=== PATIENT | female | born 1970 | race Caucasian/White ===

== ENCOUNTER → 2016-12-05 | Outpatient (CLI) | payer OTHER ==
[~2016-12-05] MED LIST: AMLODIPINE BESY1 TAB PO; AMLODIPINE5 MG PO; AMOXICILLIN500 M1 PO; AMOXICILLIN500 M2 PO; AMOXICILLIN500 MG PO; ANAPROX DS550 MG PO; ASMANEX220 MCG INH; ASPIR LOW81 MG PO; ASPIRIN ADULT L81 M2 PO; ASPIRIN325 MG PO; ASPIRIN81 M1; ASPIRIN81 MG PO; CARVEDILOL25 MG PO; CEPHALEXIN500 M1 PO; CIPRODEX 0.3%-7.5 ML OT; CIPROFLOXACIN500 MG PO; CLARITIN10 MG PO; CLEOCIN HCL150 MG PO; CLINDAMYCIN HC300 MG PO; CORDROL20 MG PO; COREG25 MG PO; COUMADIN2.5 MG PO; COUMADIN3 M1 PO; DIABETA5 MG PO; DOXYCYCLINE100 M3 PO; FERROUS SULFAT; FERROUS SULFAT324 M1 PO; FLOVENT 110 M110 MCG INH; FUROSEMIDE40 MG PO; GLYBURIDE5 MG; HUMALOG100 U/ML SC; HYDROCODONE BIT1 T11 PO; ISORDIL PO; ISORDIL10 M1 PO; ISORDIL10 MG SL; ISOSORBIDE DINI20 MG; JANTOVEN2.5 MG PO; K-DUR 20MEQ20 MEQ PO; LANTUS100 U/ML SC; LASIX40 MG PO; LEVAQUIN500 M2 PO; LEVAQUIN750 M1 PO; LIDOCAINE VISC100 M2 MM; LIPITOR40 MG PO; LISINOPRIL HCTZ1 TA1 PO; LISINOPRIL10 MG; LISINOPRIL10 MG PO; LISINOPRIL20 MG PO; LISINOPRIL5 MG PO; LOPRESSOR25 MG PO; MEDROL DOSEPAK4 MG PO; METFORMIN1000 MG PO; METFORMIN500 MG PO; METOPROLOL25 MG PO; MICRONASE5 MG PO; MOBIC15 MG PO; Metformin Hydr500 MG PO; NEURONTIN300 MG PO; NORCO 325 MG-51 TAB PO; NORVASC2.5 MG PO; NOVOLOG 70/30 M10 ML SC; NOVOLOG MIX 70/33 ML SC; NOVOLOG1 UNIT/0.0 SC; NOVOLOG100 U/ML SC; OMEPRAZOLE DR20 MG PO; OXYGEN NAS; PAXIL20 MG PO; PEN-VEE K500 MG PO; PERCOCET 325 MG1 TA7 PO; POTASSIUM20 MEQ; PREDNICOT20 MG PO; PREDNISONE10 MG PO; PREVACID30 M1 PO; PRILOSEC10 MG PO; PRILOSEC20 MG PO; PRILOSEC40 M1 PO; PYRIDIUM200 MG PO; REQUIP0.5 MG PO; REQUIP5 MG PO; ROBITUSSIN DM 105 ML PO; SIMVASTATIN80 MG PO; TESSALON PERLE100 M1 PO; TRAMADOL HCL50 MG PO; TRAMADOL50 MG PO; TRIMOX500 MG PO; TYLENOL W/CODEI1 TA2 PO; ULTRAM50 MG PO; VENTOLIN 02.5 MG/3 M INH; VENTOLIN0.09 MG/AC IH; VIBRAMYCIN100 MG PO; VICODIN 5/500 505 MG PO; VIT D2; VITAMIN B COMPL; VITAMIN D50000 I3 PO; XANAX0.25 MG; XANAX0.5 MG PO; ZITHROMAX Z PA250 MG PO; ZITHROMAX250 MG PO; ZOCOR20 MG PO; ZYRTEC10 MG PO
== END ==
LOC: RESCLI 03:01
DX: E11.42 Type 2 diabetes mellitus with diabetic polyneuropathy (principal); I25.10 Atherosclerotic heart disease of native coronary artery without angina pectoris; I10 Essential (primary) hypertension; J44.9 Chronic obstructive pulmonary disease, unspecified; Z87.891 Personal history of nicotine dependence; Z88.6 Allergy status to analgesic agent

== ENCOUNTER → 2017-02-14 | Outpatient (CLI) | payer OTHER ==
[2017-02-14 15:22] LABS: BILIRUBIN NEGATIVE (NEGATIVE); BLOOD 2+ (NEGATIVE); CLARITY CLEAR (CLEAR); COLOR YELLOW (YELLOW); GLUCOSE 3+ (NEGATIVE); KETONE NEGATIVE (NEGATIVE); LEUKO ESTERASE NEGATIVE (NEGATIVE); NITRITE NEGATIVE (NEGATIVE); PROTEIN 2+ (NEGATIVE); UROBILINOGEN 0.2 E.U./dl (0.2-1.0)
[2017-02-14 15:24] LABS: BASO % 0.2 % (0.0-1.0); EOS # 0.3 10*3/uL (0.0-0.4); EOS % 3.7 % (1.0-4.0); HEMATOCRIT 34.7 % (37.0-47.0); IG # 0.1 10*3/uL (0.0-0.1); LYMPH # 1.6 10*3/uL (1.3-4.4); LYMPH % 17.1 % (27.0-41.0); MEAN CELL VOLUME 87.4 fl (81.0-99.0); MEAN CORPUSCULAR HGB 27.7 pg (27.0-31.0); MEAN CORPUSCULAR HGB CONC 31.7 g/dl (33.0-37.0); MEAN PLATELET VOLUME 10.4 fl (9.6-12.3); MONO # 0.5 10*3/uL (0.1-1.0); MONO % 5.1 % (3.0-9.0); NEUT # 6.8 10*3/uL (2.3-7.9); NEUT % 73.1 % (47.0-73.0); PLATELET COUNT AUTOMATED 200 10*3/uL (130-400); RED BLOOD COUNT 3.97 10*6/uL (4.10-5.10); RED CELL DISTRI WIDTH 15.1 % (0-14.5); WHITE BLOOD COUNT 9.3 10*3/uL (4.8-10.8)
[2017-02-14 15:31] LABS: URINE TP/CRE RATIO 1.8 (<0.21)
[2017-02-14 15:42] LABS: HEMOGLOBIN A1c 10.4 % (4.8-5.6)
[2017-02-14 15:44] LABS: ALBUMIN 3.2 gm/dl (3.1-4.5); MAGNESIUM 1.8 mg/dL (1.5-2.1); PHOSPHOROUS 4.1 mg/dL (2.5-4.9); POTASSIUM 5.6 mmol/L (3.5-5.1)
[2017-02-14 16:03] LABS: RBC 0-2 rbc/hpf (0-2)
[2017-02-14 16:10] LABS: VITAMIN D, 25-HYDROXY 25.4 ng/mL (30-100)
[2017-02-14 16:11] LABS: FERRITIN 45.8 ng/mL (10.0-291.0); PTH INTACT 89.5 pg/mL (14.0-72.0)
== END | disposition home or self-care (01) ==
LOC: LAB 14:58
PROVIDERS: Internal Medicine Nephrology
DX: E11.22 Type 2 diabetes mellitus with diabetic chronic kidney disease (principal); E11.65 Type 2 diabetes mellitus with hyperglycemia; N18.4 Chronic kidney disease, stage 4 (severe); N25.81 Secondary hyperparathyroidism of renal origin; D63.1 Anemia in chronic kidney disease

== ENCOUNTER → 2017-03-05 | Outpatient (CLI) | payer OTHER | END | disposition home or self-care (01) | LOC: RESCLI 02:01 | DX: I13.0 Hypertensive heart and chronic kidney disease with heart failure and stage 1 through stage 4 chronic kidney disease, or unspecified chronic kidney disease (principal); I50.22 Chronic systolic (congestive) heart failure; N18.9 Chronic kidney disease, unspecified; E11.65 Type 2 diabetes mellitus with hyperglycemia; E11.22 Type 2 diabetes mellitus with diabetic chronic kidney disease; E11.42 Type 2 diabetes mellitus with diabetic polyneuropathy; J44.9 Chronic obstructive pulmonary disease, unspecified; E78.5 Hyperlipidemia, unspecified; G25.81 Restless legs syndrome; K21.9 Gastro-esophageal reflux disease without esophagitis; J30.2 Other seasonal allergic rhinitis; I25.10 Atherosclerotic heart disease of native coronary artery without angina pectoris; Z79.4 Long term (current) use of insulin ==

== ENCOUNTER 2017-03-13 13:27 | Emergency (ER) | payer OTHER ==
[~2017-03-13] VITALS: Ht 154.9 cm; Wt 82.1 kg
[2017-03-13 13:35] VITALS: BP 141/68
[2017-03-13] MEDS ORDERED: HYDROCODONE BIT1 T11 PO (15:21)
[2017-03-13] MEDS ORDERED: MEDROL DOSEPAK4 MG PO (15:21)
== END 2017-03-13 15:24 | disposition home or self-care (01) ==
LOC: ED 13:27
DX: S46.911A Strain of unspecified muscle, fascia and tendon at shoulder and upper arm level, right arm, initial encounter (principal); S50.01XA Contusion of right elbow, initial encounter; Z87.891 Personal history of nicotine dependence; Z95.1 Presence of aortocoronary bypass graft; Z90.49 Acquired absence of other specified parts of digestive tract; Z79.82 Long term (current) use of aspirin; Z88.1 Allergy status to other antibiotic agents; Z88.2 Allergy status to sulfonamides; Z88.6 Allergy status to analgesic agent; W17.89XA Other fall from one level to another, initial encounter; Y93.89 Activity, other specified; Y92.9 Unspecified place or not applicable; Y99.9 Unspecified external cause status

== ENCOUNTER → 2017-03-23 | Outpatient (CLI) | payer OTHER ==
[2017-03-23 15:21] LABS: BILIRUBIN NEGATIVE (NEGATIVE); BLOOD 1+ (NEGATIVE); CLARITY CLEAR (CLEAR); COLOR YELLOW (YELLOW); GLUCOSE 1+ (NEGATIVE); KETONE NEGATIVE (NEGATIVE); LEUKO ESTERASE 1+ (NEGATIVE); NITRITE NEGATIVE (NEGATIVE); PH 5.5 (5.0-9.0); PROTEIN 1+ (NEGATIVE); SPECIFIC GRAVITY 1.015 (1.005-1.030); UROBILINOGEN 0.2 E.U./dl (0.2-1.0)
[2017-03-23 16:14] LABS: BACTERIA TRACE; EPITHELIAL CELLS 25-30; RBC 0-2 rbc/hpf (0-2); URINE REFLEX COMMENT YES (NO); WBC 21-30 wbc/hpf (0-5)
== END | disposition home or self-care (01) ==
LOC: LAB 14:42
PROVIDERS: Internal Medicine
DX: R30.0 Dysuria (principal)

== ENCOUNTER 2017-05-15 16:35 | Inpatient (IN) | payer OTHER ==
[2017-05-15] VITALS (12 sets, daily range): BP systolic 85–128; BP diastolic 36–66
[~2017-05-15] VITALS: Ht 154.9 cm; Wt 90.0 kg
[2017-05-15 16:57] LABS: BILIRUBIN NEGATIVE (NEGATIVE); BLOOD TRACE-INTACT (NEGATIVE); CLARITY SL CLOUDY (CLEAR); COLOR YELLOW (YELLOW); GLUCOSE NEGATIVE (NEGATIVE); KETONE NEGATIVE (NEGATIVE); LEUKO ESTERASE 2+ (NEGATIVE); NITRITE NEGATIVE (NEGATIVE); PH 5.5 (5.0-9.0); PROTEIN 1+ (NEGATIVE); SPECIFIC GRAVITY 1.015 (1.005-1.030); UROBILINOGEN 0.2 E.U./dl (0.2-1.0)
[2017-05-15 17:02] LABS: BACTERIA 4+; RBC 0-2 rbc/hpf (0-2); URINE REFLEX COMMENT YES (NO); WBC 16-20 wbc/hpf (0-5)
[2017-05-15 17:08] LABS: BUN 39 mg/dl (7-24); CARBON DIOXIDE 20 mmol/L (21-32); CHLORIDE 112 mmol/L (98-107); EST GLOM FILT AFRICAN AMERICAN 22 ml/min; POTASSIUM 4.2 mmol/L (3.5-5.1); SODIUM 142 mmol/L (136-145)
[2017-05-15 17:10] LABS: GLUCOSE 28 mg/dL (65-99); TROPONIN I < 0.015 ng/ml (<0.045)
[2017-05-15 18:18] LABS: BASO % 0.3 % (0.0-1.0); EOS # 0.7 10*3/uL (0.0-0.4); HEMATOCRIT 36.1 % (37.0-47.0); HEMOGLOBIN 11.5 g/dl (12.0-16.0); IG # 0.1 10*3/uL (0.0-0.1); LYMPH # 2.5 10*3/uL (1.3-4.4); MEAN CELL VOLUME 86.8 fl (81.0-99.0); MEAN CORPUSCULAR HGB 27.6 pg (27.0-31.0); MEAN CORPUSCULAR HGB CONC 31.9 g/dl (33.0-37.0); MEAN PLATELET VOLUME 11.2 fl (9.6-12.3); MONO # 0.7 10*3/uL (0.1-1.0); MONO % 4.8 % (3.0-9.0); NEUT # 10.5 10*3/uL (2.3-7.9); NEUT % 72.3 % (47.0-73.0); PLATELET COUNT AUTOMATED 292 10*3/uL (130-400); RED BLOOD COUNT 4.16 10*6/uL (4.10-5.10); RED CELL DISTRI WIDTH 14.6 % (0-14.5); WHITE BLOOD COUNT 14.5 10*3/uL (4.8-10.8)
[2017-05-15 21:25] LABS: POTASSIUM 4.4 mmol/L (3.5-5.1)
[2017-05-15 22:58] LABS: POTASSIUM 5.6 mmol/L (3.5-5.1)
[2017-05-16 01:00] VITALS: BP 109/53
[2017-05-16 03:29] LABS: URINE AMPHETAMINES < 1000 (1000ng/ml); URINE BARBITURATES < 200 (200ng/ml); URINE COCAINE < 300 (300ng/ml)
[2017-05-16 03:40] LABS: URINE OSMOLALITY 257 mOsm/kg (500-850)
[2017-05-16 06:15] LABS: BASO % 0.2 % (0.0-1.0); EOS # 0.3 10*3/uL (0.0-0.4); EOS % 2.7 % (1.0-4.0); HEMATOCRIT 34.8 % (37.0-47.0); IG # 0.1 10*3/uL (0.0-0.1); LYMPH # 1.7 10*3/uL (1.3-4.4); LYMPH % 15.2 % (27.0-41.0); MEAN CELL VOLUME 87.4 fl (81.0-99.0); MEAN CORPUSCULAR HGB 27.6 pg (27.0-31.0); MEAN CORPUSCULAR HGB CONC 31.6 g/dl (33.0-37.0); MEAN PLATELET VOLUME 10.7 fl (9.6-12.3); MONO # 0.4 10*3/uL (0.1-1.0); MONO % 3.4 % (3.0-9.0); NEUT # 8.6 10*3/uL (2.3-7.9); PLATELET COUNT AUTOMATED 215 10*3/uL (130-400); RED BLOOD COUNT 3.98 10*6/uL (4.10-5.10); RED CELL DISTRI WIDTH 14.3 % (0-14.5)
[2017-05-16 06:20] LABS: HEMOGLOBIN A1c 9.4 % (4.8-5.6)
[2017-05-16 06:26] LABS: ALBUMIN 2.8 gm/dl (3.1-4.5); BILIRUBIN, TOTAL 0.2 mg/dl (0.2-1.0); BUN 36 mg/dl (7-24); CARBON DIOXIDE 20 mmol/L (21-32); CHLORIDE 112 mmol/L (98-107); CHOLESTEROL 114 mg/dL (<200); EST GLOM FILT AFRICAN AMERICAN 25 ml/min; GLUCOSE 178 mg/dL (65-99); MAGNESIUM 1.6 mg/dL (1.5-2.1); PHOSPHOROUS 3.5 mg/dL (2.5-4.9); SGOT/AST 14 IU/L (3-35); SGPT/ALT 14 U/L (12-78); SODIUM 141 mmol/L (136-145); TOTAL PROTEIN 6.5 gm/dL (6.4-8.2); TRIGLYCERIDES 195 mg/dl (<150); VLDL CHOLESTEROL 39 mg/dL (6-40)
[2017-05-16 06:30] LABS: INTERNATIONAL NORM RATIO 0.9 (2.0-3.5)
[2017-05-16 06:33] LABS: ALKALINE PHOSPHATASE 81 U/L (45-117); FREE T4 0.95 ng/dl (0.76-1.46); HDL CHOLESTEROL 29 mg/dl (40-60); LDL CHOLESTEROL 46 mg/dL (9-159); POTASSIUM 4.5 mmol/L (3.5-5.1); THYROID STIM HORMONE (HS) 0.647 uIU/ml (0.358-4.75); TROPONIN I < 0.015 ng/ml (<0.045)
[2017-05-16 08:00] VITALS: BP 111/50
[2017-05-16] MEDS ORDERED: LASIX40 MG PO (09:30)
[2017-05-16] MEDS ORDERED: ASMANEX HF200 MCG/Ac INH (09:34)
[2017-05-16] MEDS ORDERED: BASAGLAR K100 UNIT/1 SQ (09:36)
[2017-05-16 12:00] VITALS: BP 136/63
[2017-05-16 16:00] VITALS: BP 126/58
[2017-05-16 20:00] VITALS: BP 154/57
[2017-05-17] VITALS: BP 137/63
[2017-05-17 06:57] LABS: BASO % 0.2 % (0.0-1.0); EOS # 0.6 10*3/uL (0.0-0.4); EOS % 6.3 % (1.0-4.0); HEMATOCRIT 33.1 % (37.0-47.0); HEMOGLOBIN 10.6 g/dl (12.0-16.0); IG # 0.1 10*3/uL (0.0-0.1); LYMPH # 1.8 10*3/uL (1.3-4.4); LYMPH % 20.1 % (27.0-41.0); MEAN CELL VOLUME 86.6 fl (81.0-99.0); MEAN CORPUSCULAR HGB 27.7 pg (27.0-31.0); MEAN PLATELET VOLUME 10.8 fl (9.6-12.3); MONO # 0.3 10*3/uL (0.1-1.0); MONO % 3.8 % (3.0-9.0); NEUT # 6.2 10*3/uL (2.3-7.9); PLATELET COUNT AUTOMATED 224 10*3/uL (130-400); RED BLOOD COUNT 3.82 10*6/uL (4.10-5.10); RED CELL DISTRI WIDTH 14.4 % (0-14.5); WHITE BLOOD COUNT 8.9 10*3/uL (4.8-10.8)
[2017-05-17 07:26] LABS: POTASSIUM 4.5 mmol/L (3.5-5.1)
[2017-05-17 07:48] LABS: INTERNATIONAL NORM RATIO 0.9 (2.0-3.5); PROTHROMBIN TIME 9.9 SECONDS (9.0-12.4)
[2017-05-17 08:00] VITALS: BP 146/63
[2017-05-17 12:00] VITALS: BP 136/62
[2017-05-17 16:00] VITALS: BP 119/55
[2017-05-17 20:00] VITALS: BP 162/71
[2017-05-18] VITALS: BP 140/74
[2017-05-18 06:54] LABS: BASO % 0.3 % (0.0-1.0); EOS # 0.6 10*3/uL (0.0-0.4); EOS % 6.7 % (1.0-4.0); HEMATOCRIT 32.2 % (37.0-47.0); HEMOGLOBIN 10.4 g/dl (12.0-16.0); IG # 0.1 10*3/uL (0.0-0.1); LYMPH # 1.9 10*3/uL (1.3-4.4); LYMPH % 21.4 % (27.0-41.0); MEAN CELL VOLUME 86.8 fl (81.0-99.0); MEAN CORPUSCULAR HGB CONC 32.3 g/dl (33.0-37.0); MEAN PLATELET VOLUME 10.8 fl (9.6-12.3); MONO # 0.4 10*3/uL (0.1-1.0); MONO % 4.6 % (3.0-9.0); NEUT % 66.1 % (47.0-73.0); PLATELET COUNT AUTOMATED 212 10*3/uL (130-400); RED BLOOD COUNT 3.71 10*6/uL (4.10-5.10); WHITE BLOOD COUNT 9.1 10*3/uL (4.8-10.8)
[2017-05-18 07:27] LABS: POTASSIUM 4.3 mmol/L (3.5-5.1)
[2017-05-18 08:00] VITALS: BP 129/60
[2017-05-18] MEDS ORDERED: CIPRO500 MG PO (11:05)
[2017-05-18] MEDS ORDERED: BASAGLAR K100 UNIT/1 SQ (11:05)
== END 2017-05-18 13:13 | disposition home or self-care (01) | DRG 637 ==
LOC: ED 16:35 → 4E 23:36 → EDHOLD 23:36 → 4E 23:46
PROVIDERS: Emergency Medicine; Internal Medicine; Internal Medicine Hospice and Palliative Medicine; Student in an Organized Health Care Education/Training Program
DX: E11.649 Type 2 diabetes mellitus with hypoglycemia without coma (principal); G93.41 Metabolic encephalopathy; N17.0 Acute kidney failure with tubular necrosis; E87.2 Acidosis; I95.9 Hypotension, unspecified; I13.0 Hypertensive heart and chronic kidney disease with heart failure and stage 1 through stage 4 chronic kidney disease, or unspecified chronic kidney disease; E44.0 Moderate protein-calorie malnutrition; I50.22 Chronic systolic (congestive) heart failure; E87.8 Other disorders of electrolyte and fluid balance, not elsewhere classified; N39.0 Urinary tract infection, site not specified; E11.22 Type 2 diabetes mellitus with diabetic chronic kidney disease; E66.01 Morbid (severe) obesity due to excess calories; E11.65 Type 2 diabetes mellitus with hyperglycemia; N18.4 Chronic kidney disease, stage 4 (severe); E87.5 Hyperkalemia; R31.9 Hematuria, unspecified; I25.10 Atherosclerotic heart disease of native coronary artery without angina pectoris; J44.9 Chronic obstructive pulmonary disease, unspecified; K21.9 Gastro-esophageal reflux disease without esophagitis; E78.5 Hyperlipidemia, unspecified; G25.81 Restless legs syndrome; D64.9 Anemia, unspecified; E55.9 Vitamin D deficiency, unspecified; E11.42 Type 2 diabetes mellitus with diabetic polyneuropathy; Z90.49 Acquired absence of other specified parts of digestive tract; Z82.49 Family history of ischemic heart disease and other diseases of the circulatory system; Z84.1 Family history of disorders of kidney and ureter; Z95.1 Presence of aortocoronary bypass graft; Z80.51 Family history of malignant neoplasm of kidney; Z79.82 Long term (current) use of aspirin; Z79.4 Long term (current) use of insulin; Z88.6 Allergy status to analgesic agent; Z88.2 Allergy status to sulfonamides; Z88.1 Allergy status to other antibiotic agents; Z83.3 Family history of diabetes mellitus; Z82.3 Family history of stroke; Z68.29 Body mass index [BMI] 29.0-29.9, adult

== ENCOUNTER → 2017-05-29 | Outpatient (CLI) | payer OTHER ==
[~2017-05-29] MED LIST changes: +ASMANEX HF200 MCG/Ac INH; +BASAGLAR K100 UNIT/1 SQ; +CIPRO500 MG PO
[2017-05-29 09:41] LABS: BILIRUBIN NEGATIVE (NEGATIVE); BLOOD 2+ (NEGATIVE); CLARITY CLOUDY (CLEAR); COLOR YELLOW (YELLOW); GLUCOSE TRACE (NEGATIVE); KETONE NEGATIVE (NEGATIVE); LEUKO ESTERASE 3+ (NEGATIVE); NITRITE NEGATIVE (NEGATIVE); PH 5.5 (5.0-9.0); PROTEIN 2+ (NEGATIVE); SPECIFIC GRAVITY 1.015 (1.005-1.030); UROBILINOGEN 0.2 E.U./dl (0.2-1.0)
[2017-05-29 09:47] LABS: BACTERIA 2+; RBC 21-30 rbc/hpf (0-2); URINE REFLEX COMMENT YES (NO); WBC TNTC wbc/hpf (0-5)
== END | disposition home or self-care (01) ==
LOC: LAB 03:38 → RESCLI 03:38
PROVIDERS: Hospitalist
DX: N39.0 Urinary tract infection, site not specified (principal)

== ENCOUNTER → 2017-06-27 | Outpatient (CLI) | payer OTHER | END | disposition home or self-care (01) | LOC: RESCLI 02:50 | DX: I13.0 Hypertensive heart and chronic kidney disease with heart failure and stage 1 through stage 4 chronic kidney disease, or unspecified chronic kidney disease (principal); I25.810 Atherosclerosis of coronary artery bypass graft(s) without angina pectoris; I50.22 Chronic systolic (congestive) heart failure; E11.65 Type 2 diabetes mellitus with hyperglycemia; E11.42 Type 2 diabetes mellitus with diabetic polyneuropathy; E78.5 Hyperlipidemia, unspecified; N18.9 Chronic kidney disease, unspecified; E11.22 Type 2 diabetes mellitus with diabetic chronic kidney disease; J44.9 Chronic obstructive pulmonary disease, unspecified; Q61.3 Polycystic kidney, unspecified; J30.2 Other seasonal allergic rhinitis; K21.9 Gastro-esophageal reflux disease without esophagitis; G25.81 Restless legs syndrome; E66.01 Morbid (severe) obesity due to excess calories ==

== ENCOUNTER 2017-07-24 06:14 | Emergency (ER) | payer OTHER ==
[~2017-07-24] VITALS: Ht 154.9 cm; Wt 84.4 kg
[~2017-07-24 06:14] MED LIST changes: -ASMANEX HF200 MCG/Ac INH; +ASMANEX HFA13 GM INH
[2017-07-24 06:29] VITALS: BP 126/56
[2017-07-24 07:13] LABS: BASO % 0.2 % (0.0-1.0); EOS # 0.5 10*3/uL (0.0-0.4); EOS % 5.8 % (1.0-4.0); HEMATOCRIT 34.8 % (37.0-47.0); HEMOGLOBIN 11.2 g/dl (12.0-16.0); LYMPH # 1.3 10*3/uL (1.3-4.4); LYMPH % 13.5 % (27.0-41.0); MEAN CORPUSCULAR HGB CONC 32.2 g/dl (33.0-37.0); MEAN PLATELET VOLUME 10.8 fl (9.6-12.3); MONO # 0.5 10*3/uL (0.1-1.0); NEUT % 75.2 % (47.0-73.0); PLATELET COUNT AUTOMATED 211 10*3/uL (130-400); RED CELL DISTRI WIDTH 14.1 % (0-14.5); WHITE BLOOD COUNT 9.3 10*3/uL (4.8-10.8)
[2017-07-24 07:33] LABS: ALBUMIN 3.1 gm/dl (3.1-4.5); ALKALINE PHOSPHATASE 88 U/L (45-117); BUN 53 mg/dl (7-24); CHLORIDE 105 mmol/L (98-107); CREATININE 3.31 mg/dL (0.55-1.02); POTASSIUM 4.5 mmol/L (3.5-5.1); SGOT/AST 10 IU/L (3-35); SGPT/ALT 14 U/L (12-78); SODIUM 137 mmol/L (136-145); TOTAL PROTEIN 7.3 gm/dL (6.4-8.2)
[2017-07-24 07:41] LABS: TROPONIN I < 0.015 ng/ml (<0.045)
[2017-07-24] MEDS ORDERED: DUONEB 3 MG/3 ML3 M1 INH (08:37)
[2017-07-24] MEDS ORDERED: VIBRAMYCIN100 MG PO (08:37)
== END 2017-07-24 09:17 | disposition home or self-care (01) ==
LOC: ED 06:14
PROVIDERS: Emergency Medicine Emergency Medical Services
DX: J40 Bronchitis, not specified as acute or chronic (principal); I25.10 Atherosclerotic heart disease of native coronary artery without angina pectoris; I13.0 Hypertensive heart and chronic kidney disease with heart failure and stage 1 through stage 4 chronic kidney disease, or unspecified chronic kidney disease; E11.22 Type 2 diabetes mellitus with diabetic chronic kidney disease; N18.4 Chronic kidney disease, stage 4 (severe); I50.9 Heart failure, unspecified; J44.9 Chronic obstructive pulmonary disease, unspecified; K21.9 Gastro-esophageal reflux disease without esophagitis; E78.5 Hyperlipidemia, unspecified; E66.9 Obesity, unspecified; G25.81 Restless legs syndrome; Z68.39 Body mass index [BMI] 39.0-39.9, adult; Z87.891 Personal history of nicotine dependence; Z95.1 Presence of aortocoronary bypass graft; Z90.49 Acquired absence of other specified parts of digestive tract; Z79.82 Long term (current) use of aspirin; Z79.899 Other long term (current) drug therapy; Z98.890 Other specified postprocedural states; Z88.6 Allergy status to analgesic agent; Z88.1 Allergy status to other antibiotic agents; Z88.8 Allergy status to other drugs, medicaments and biological substances

== ENCOUNTER 2017-07-27 05:52 | Inpatient (IN) | payer OTHER ==
[2017-07-27] VITALS (8 sets, daily range): BP systolic 128–171; BP diastolic 65–78
[~2017-07-27] VITALS: Ht 154.9 cm; Wt 84.9 kg
--- NOTE | ~2017-07-27 | EKG ---
[place], [place] ELECTROCARDIOGRAM REPORT NAME: JENNIE KIRKLAND UNIT #: [id number] ROOM: 507 DOCTOR: BARRY HOLLEY MD,KRISTOPHER BIRTHDATE: [birth year] DOS: 07/27/2017 Normal sinus rhythm was noted. Possibility of old inferior myocardial infarction was noted. Poor R-wave progression was also noted in the ____ rule out any acute ischemia. KRISTOPHER REDDY MD CM:EKGRPT:ELECTROCARDIOGRAM REPORT [id number] KRISTOPHER HOLLEY MD
[~2017-07-27 05:52] MED LIST changes: +DUONEB 3 MG/3 ML3 M1 INH
[2017-07-27 07:14] LABS: ABG BASE EXCESS -4.6 mmol/L (-2.0-2.0); ABG O2 SATURATION 91.9 % (95-97); ARTERIAL BLOOD GAS PCO2 37.4 mmHg (35-45); ARTERIAL BLOOD GAS PH 7.347 (7.35-7.45); ARTERIAL BLOOD GAS PO2 62.7 mmHg (80-90)
[2017-07-27 07:24] LABS: BASO % 0.3 % (0.0-1.0); EOS # 0.5 10*3/uL (0.0-0.4); HEMATOCRIT 33.5 % (37.0-47.0); HEMOGLOBIN 10.5 g/dl (12.0-16.0); LYMPH % 21.2 % (27.0-41.0); MEAN CELL VOLUME 85.9 fl (81.0-99.0); MEAN CORPUSCULAR HGB 26.9 pg (27.0-31.0); MEAN CORPUSCULAR HGB CONC 31.3 g/dl (33.0-37.0); MEAN PLATELET VOLUME 10.9 fl (9.6-12.3); MONO # 0.5 10*3/uL (0.1-1.0); MONO % 4.8 % (3.0-9.0); NEUT # 6.4 10*3/uL (2.3-7.9); NEUT % 68.1 % (47.0-73.0); PLATELET COUNT AUTOMATED 217 10*3/uL (130-400); RED CELL DISTRI WIDTH 14.1 % (0-14.5); WHITE BLOOD COUNT 9.5 10*3/uL (4.8-10.8)
[2017-07-27 07:32] LABS: ACT PARTIAL THROMBO TIME 24.9 SECONDS (20.8-31.5)
[2017-07-27 07:40] LABS: ALBUMIN 2.9 gm/dl (3.1-4.5); ALKALINE PHOSPHATASE 114 U/L (45-117); BUN 41 mg/dl (7-24); CHLORIDE 110 mmol/L (98-107); CREATININE 2.86 mg/dL (0.55-1.02); LIPASE 293 U/L (73-393); MAGNESIUM 1.6 mg/dL (1.5-2.1); POTASSIUM 4.2 mmol/L (3.5-5.1); SGOT/AST 6 IU/L (3-35); SGPT/ALT 17 U/L (12-78); SODIUM 140 mmol/L (136-145); TOTAL PROTEIN 7.3 gm/dL (6.4-8.2)
[2017-07-27 07:50] LABS: TROPONIN I < 0.015 ng/ml (<0.045)
[2017-07-27] MEDS ORDERED: COREG25 MG PO (10:50)
[2017-07-27] MEDS ORDERED: IRON325 M1 PO (10:55)
[2017-07-27] MEDS ORDERED: NEURONTIN300 MG PO (10:59)
[2017-07-27] MEDS ORDERED: LANTUS SOL100 UNIT/1 SQ (11:05)
[2017-07-27] MEDS ORDERED: ISORDIL10 M1 PO (12:47)
[2017-07-27] MEDS ORDERED: VENTOLIN 02.5 MG/3 M INH (12:50)
[2017-07-27] MEDS ORDERED: DUONEB 3 MG/3 ML3 M1 INH (12:52)
[2017-07-28] VITALS: BP 124/54
[2017-07-28 06:37] LABS: HEMATOCRIT 33.8 % (37.0-47.0); MEAN CELL VOLUME 85.1 fl (81.0-99.0); MEAN CORPUSCULAR HGB 27.7 pg (27.0-31.0); MEAN CORPUSCULAR HGB CONC 32.5 g/dl (33.0-37.0); MEAN PLATELET VOLUME 11.1 fl (9.6-12.3); PLATELET COUNT AUTOMATED 240 10*3/uL (130-400); RED BLOOD COUNT 3.97 10*6/uL (4.10-5.10); RED CELL DISTRI WIDTH 13.8 % (0-14.5); WHITE BLOOD COUNT 12.3 10*3/uL (4.8-10.8)
[2017-07-28 07:04] LABS: CREATININE 2.78 mg/dL (0.55-1.02); MAGNESIUM 1.3 mg/dL (1.5-2.1); PHOSPHOROUS 3.5 mg/dL (2.5-4.9); POTASSIUM 4.2 mmol/L (3.5-5.1)
[2017-07-28 07:09] LABS: VITAMIN D, 25-HYDROXY 35.1 ng/mL (30-100)
[2017-07-28 07:12] LABS: THYROID STIM HORMONE (HS) 0.444 uIU/ml (0.358-4.75)
[2017-07-28 07:38] LABS: TOTAL CELLS COUNTED 100 #CELLS
[2017-07-28 07:41] LABS: PLATELET SUFFICIENCY NORMAL (NORMAL)
[2017-07-28 08:00] VITALS: BP 124/64
[2017-07-28 12:00] VITALS: BP 140/71
[2017-07-28 16:00] VITALS: BP 120/52
[2017-07-28 20:00] VITALS: BP 113/57
[2017-07-29] VITALS: BP 131/71
[2017-07-29 05:59] LABS: HEMATOCRIT 34.2 % (37.0-47.0); MEAN CELL VOLUME 84.9 fl (81.0-99.0); MEAN CORPUSCULAR HGB 27.3 pg (27.0-31.0); MEAN CORPUSCULAR HGB CONC 32.2 g/dl (33.0-37.0); MEAN PLATELET VOLUME 10.7 fl (9.6-12.3); PLATELET COUNT AUTOMATED 260 10*3/uL (130-400); RED BLOOD COUNT 4.03 10*6/uL (4.10-5.10); WHITE BLOOD COUNT 17.6 10*3/uL (4.8-10.8)
[2017-07-29 06:32] LABS: CREATININE 3.06 mg/dL (0.55-1.02); MAGNESIUM 2.4 mg/dL (1.5-2.1); POTASSIUM 4.4 mmol/L (3.5-5.1)
[2017-07-29 07:16] LABS: PLATELET SUFFICIENCY NORMAL (NORMAL); TOTAL CELLS COUNTED 100 #CELLS
[2017-07-29 08:00] VITALS: BP 142/64
[2017-07-29 12:00] VITALS: BP 132/56
[2017-07-29] MEDS ORDERED: LEVOFLOXACIN500 MG PO (12:30)
[2017-07-29] MEDS ORDERED: PREDNISONE10 MG PO (12:30)
== END 2017-07-29 14:30 | disposition home or self-care (01) | DRG 871 ==
LOC: ED 05:52 → EDHOLD 08:12 → 5E 08:12
PROVIDERS: Internal Medicine; Student in an Organized Health Care Education/Training Program; ADMIT Internal Medicine
PROC: 5A09357 Assistance with Respiratory Ventilation, Less than 24 Consecutive Hours, Continuous Positive Airway Pressure (ICD-10-PCS; principal; 2017-07-29)
DX: A41.9 Sepsis, unspecified organism (principal); J96.01 Acute respiratory failure with hypoxia; E87.2 Acidosis; J44.1 Chronic obstructive pulmonary disease with (acute) exacerbation; I13.0 Hypertensive heart and chronic kidney disease with heart failure and stage 1 through stage 4 chronic kidney disease, or unspecified chronic kidney disease; N18.4 Chronic kidney disease, stage 4 (severe); E44.0 Moderate protein-calorie malnutrition; I50.42 Chronic combined systolic (congestive) and diastolic (congestive) heart failure; I25.10 Atherosclerotic heart disease of native coronary artery without angina pectoris; E11.65 Type 2 diabetes mellitus with hyperglycemia; E11.42 Type 2 diabetes mellitus with diabetic polyneuropathy; E55.9 Vitamin D deficiency, unspecified; J30.2 Other seasonal allergic rhinitis; G25.81 Restless legs syndrome; D64.9 Anemia, unspecified; E87.8 Other disorders of electrolyte and fluid balance, not elsewhere classified; E11.22 Type 2 diabetes mellitus with diabetic chronic kidney disease; H66.90 Otitis media, unspecified, unspecified ear; E66.01 Morbid (severe) obesity due to excess calories; K21.9 Gastro-esophageal reflux disease without esophagitis; E78.5 Hyperlipidemia, unspecified; Z87.440 Personal history of urinary (tract) infections; Z95.1 Presence of aortocoronary bypass graft; Z90.49 Acquired absence of other specified parts of digestive tract; Z87.891 Personal history of nicotine dependence; Z82.49 Family history of ischemic heart disease and other diseases of the circulatory system; Z80.51 Family history of malignant neoplasm of kidney; Z84.1 Family history of disorders of kidney and ureter; Z79.82 Long term (current) use of aspirin; Z79.4 Long term (current) use of insulin; Z79.899 Other long term (current) drug therapy; Z68.35 Body mass index [BMI] 35.0-35.9, adult

== ENCOUNTER → 2017-08-29 | Outpatient (CLI) | payer OTHER ==
[~2017-08-29] MED LIST changes: +IRON325 M1 PO; +LANTUS SOL100 UNIT/1 SQ; +LEVOFLOXACIN500 MG PO
== END | disposition home or self-care (01) ==
LOC: RESCLI 01:01
DX: I13.0 Hypertensive heart and chronic kidney disease with heart failure and stage 1 through stage 4 chronic kidney disease, or unspecified chronic kidney disease (principal); N18.9 Chronic kidney disease, unspecified; I50.22 Chronic systolic (congestive) heart failure; J44.9 Chronic obstructive pulmonary disease, unspecified; E78.5 Hyperlipidemia, unspecified; G25.81 Restless legs syndrome; E11.65 Type 2 diabetes mellitus with hyperglycemia; E11.22 Type 2 diabetes mellitus with diabetic chronic kidney disease; Q61.3 Polycystic kidney, unspecified; Z79.4 Long term (current) use of insulin

== ENCOUNTER 2017-09-06 14:42 | Emergency (ER) | payer OTHER ==
[~2017-09-06] VITALS: Ht 154.9 cm; Wt 83.9 kg
[2017-09-06 15:03] VITALS: BP 148/74
[2017-09-06] MEDS ORDERED: Tobrex Ophth S2.5 ML OPH (15:29)
== END 2017-09-06 15:45 | disposition home or self-care (01) ==
LOC: ED 14:42
DX: H10.33 Unspecified acute conjunctivitis, bilateral (principal); Z88.9 Allergy status to unspecified drugs, medicaments and biological substances; Z88.1 Allergy status to other antibiotic agents; Z95.1 Presence of aortocoronary bypass graft; Z90.49 Acquired absence of other specified parts of digestive tract; I25.10 Atherosclerotic heart disease of native coronary artery without angina pectoris; Z87.891 Personal history of nicotine dependence

== ENCOUNTER → 2017-12-17 | Outpatient (CLI) | payer OTHER ==
[~2017-12-17] MED LIST changes: +Tobrex Ophth S2.5 ML OPH
[2017-12-17 18:01] LABS: BASO # 0.1 10*3/uL (0.0-0.1); BASO % 0.4 % (0.0-1.0); BILIRUBIN NEGATIVE (NEGATIVE); BLOOD 2+ (NEGATIVE); CLARITY CLOUDY (CLEAR); COLOR YELLOW (YELLOW); EOS # 0.6 10*3/uL (0.0-0.4); EOS % 5.2 % (1.0-4.0); GLUCOSE TRACE (NEGATIVE); HEMATOCRIT 35.6 % (37.0-47.0); HEMOGLOBIN 11.8 g/dl (12.0-16.0); KETONE NEGATIVE (NEGATIVE); LEUKO ESTERASE 3+ (NEGATIVE); LYMPH # 2.4 10*3/uL (1.3-4.4); LYMPH % 20.4 % (27.0-41.0); MEAN CELL VOLUME 84.2 fl (81.0-99.0); MEAN CORPUSCULAR HGB 27.9 pg (27.0-31.0); MEAN CORPUSCULAR HGB CONC 33.1 g/dl (33.0-37.0); MEAN PLATELET VOLUME 10.2 fl (9.6-12.3); MONO # 0.4 10*3/uL (0.1-1.0); MONO % 3.8 % (3.0-9.0); NEUT # 8.1 10*3/uL (2.3-7.9); NEUT % 69.9 % (47.0-73.0); NITRITE POSITIVE (NEGATIVE); PH 5.5 (5.0-9.0); PLATELET COUNT AUTOMATED 301 10*3/uL (130-400); RED BLOOD COUNT 4.23 10*6/uL (4.10-5.10); RED CELL DISTRI WIDTH 13.1 % (0-14.5); SPECIFIC GRAVITY 1.025 (1.005-1.030); UROBILINOGEN 0.2 E.U./dl (0.2-1.0); WHITE BLOOD COUNT 11.5 10*3/uL (4.8-10.8)
[2017-12-17 18:12] LABS: EPITHELIAL CELLS TNTC
[2017-12-17 18:13] LABS: BACTERIA 2+; WBC TNTC wbc/hpf (0-5)
[2017-12-17 18:18] LABS: ALBUMIN 3.2 gm/dl (3.1-4.5); CREATININE 3.34 mg/dL (0.55-1.02); PHOSPHOROUS 5.5 mg/dL (2.5-4.9); POTASSIUM 4.4 mmol/L (3.5-5.1)
[2017-12-17 18:20] LABS: URINE CREATININE RANDOM 97.5 mg/dL
[2017-12-17 18:59] LABS: VITAMIN D, 25-HYDROXY 22.6 ng/mL (30-100)
[2017-12-17 19:00] LABS: PTH INTACT 113.6 pg/mL (14.0-72.0)
== END | disposition home or self-care (01) ==
LOC: LAB 17:06
PROVIDERS: Internal Medicine Nephrology
DX: D83.1 Common variable immunodeficiency with predominant immunoregulatory T-cell disorders (principal); N18.4 Chronic kidney disease, stage 4 (severe); E11.65 Type 2 diabetes mellitus with hyperglycemia; D63.1 Anemia in chronic kidney disease

== ENCOUNTER 2018-01-21 05:21 | Inpatient (IN) | payer OTHER ==
[~2018-01-21] VITALS: Ht 154.9 cm; Wt 81.8 kg
[2018-01-21] VITALS (8 sets, daily range): BP systolic 96–149; BP diastolic 48–68
[2018-01-21 06:00] LABS: BASO % 0.3 % (0.0-1.0); EOS # 0.4 10*3/uL (0.0-0.4); EOS % 3.6 % (1.0-4.0); HEMATOCRIT 30.8 % (37.0-47.0); HEMOGLOBIN 9.9 g/dl (12.0-16.0); LYMPH # 1.1 10*3/uL (1.3-4.4); LYMPH % 9.8 % (27.0-41.0); MEAN CELL VOLUME 86.3 fl (81.0-99.0); MEAN CORPUSCULAR HGB 27.7 pg (27.0-31.0); MEAN CORPUSCULAR HGB CONC 32.1 g/dl (33.0-37.0); MEAN PLATELET VOLUME 10.7 fl (9.6-12.3); MONO # 0.4 10*3/uL (0.1-1.0); MONO % 3.7 % (3.0-9.0); NEUT # 9.6 10*3/uL (2.3-7.9); NEUT % 82.3 % (47.0-73.0); PLATELET COUNT AUTOMATED 235 10*3/uL (130-400); RED BLOOD COUNT 3.57 10*6/uL (4.10-5.10); RED CELL DISTRI WIDTH 13.5 % (0-14.5); WHITE BLOOD COUNT 11.7 10*3/uL (4.8-10.8)
[2018-01-21] MEDS ORDERED: CORTISPORIN SUS10 ML OT (06:00)
[2018-01-21 06:15] LABS: INTERNATIONAL NORM RATIO 0.9 (2.0-3.5)
[2018-01-21 06:20] LABS: ALBUMIN 2.9 gm/dl (3.1-4.5); ALKALINE PHOSPHATASE 80 U/L (45-117); BUN 24 mg/dl (7-24); CHLORIDE 106 mmol/L (98-107); CREATININE 2.54 mg/dL (0.55-1.02); POTASSIUM 3.7 mmol/L (3.5-5.1); SGOT/AST 14 IU/L (3-35); SGPT/ALT 14 U/L (12-78); SODIUM 140 mmol/L (136-145); TOTAL PROTEIN 6.8 gm/dL (6.4-8.2)
[2018-01-21 06:22] LABS: TROPONIN I < 0.015 ng/ml (<0.045)
[2018-01-21 06:30] LABS: BILIRUBIN NEGATIVE (NEGATIVE); BLOOD 1+ (NEGATIVE); CLARITY CLOUDY (CLEAR); COLOR YELLOW (YELLOW); GLUCOSE 1+ (NEGATIVE); KETONE NEGATIVE (NEGATIVE); LEUKO ESTERASE 1+ (NEGATIVE); NITRITE NEGATIVE (NEGATIVE); PH 5.5 (5.0-9.0); UROBILINOGEN 0.2 E.U./dl (0.2-1.0)
[2018-01-21 07:10] LABS: BACTERIA 4+; EPITHELIAL CELLS 15-20; WBC TNTC wbc/hpf (0-5)
[2018-01-21] MEDS ORDERED: [UNRECOGNIZED DRUG - OTHER] SQ (13:43)
[2018-01-22] VITALS: BP 116/41
[2018-01-22 07:06] LABS: HEMATOCRIT 31.3 % (37.0-47.0); HEMOGLOBIN 10.3 g/dl (12.0-16.0); MEAN CELL VOLUME 85.1 fl (81.0-99.0); MEAN CORPUSCULAR HGB CONC 32.9 g/dl (33.0-37.0); MEAN PLATELET VOLUME 10.9 fl (9.6-12.3); PLATELET COUNT AUTOMATED 211 10*3/uL (130-400); RED BLOOD COUNT 3.68 10*6/uL (4.10-5.10); RED CELL DISTRI WIDTH 13.5 % (0-14.5); WHITE BLOOD COUNT 11.5 10*3/uL (4.8-10.8)
[2018-01-22 07:34] LABS: PLATELET SUFFICIENCY NORMAL (NORMAL); TOTAL CELLS COUNTED 100 #CELLS
[2018-01-22 07:44] LABS: ALBUMIN 2.9 gm/dl (3.1-4.5); CREATININE 2.8 mg/dL (0.55-1.02); FREE T4 0.99 ng/dl (0.76-1.46); PHOSPHOROUS 2.4 mg/dL (2.5-4.9); POTASSIUM 3.9 mmol/L (3.5-5.1); TOTAL PROTEIN 7.2 gm/dL (6.4-8.2)
[2018-01-22 07:48] LABS: THYROID STIM HORMONE (HS) 0.585 uIU/ml (0.358-4.75)
[2018-01-22 08:00] VITALS: BP 141/65
[2018-01-22 08:29] LABS: VITAMIN D, 25-HYDROXY 27.1 ng/mL (30-100)
[2018-01-22 12:00] VITALS: BP 145/69
[2018-01-22 16:00] VITALS: BP 135/66
[2018-01-22 20:00] VITALS: BP 127/59
[2018-01-23] VITALS: BP 135/71
[2018-01-23 07:06] LABS: HEMATOCRIT 31.7 % (37.0-47.0); HEMOGLOBIN 10.4 g/dl (12.0-16.0); MEAN CELL VOLUME 85.9 fl (81.0-99.0); MEAN CORPUSCULAR HGB 28.2 pg (27.0-31.0); MEAN CORPUSCULAR HGB CONC 32.8 g/dl (33.0-37.0); MEAN PLATELET VOLUME 10.9 fl (9.6-12.3); PLATELET COUNT AUTOMATED 233 10*3/uL (130-400); RED BLOOD COUNT 3.69 10*6/uL (4.10-5.10); RED CELL DISTRI WIDTH 13.8 % (0-14.5); WHITE BLOOD COUNT 17.3 10*3/uL (4.8-10.8)
[2018-01-23 07:25] LABS: ALBUMIN 2.8 gm/dl (3.1-4.5); CREATININE 2.78 mg/dL (0.55-1.02); PHOSPHOROUS 4.1 mg/dL (2.5-4.9); POTASSIUM 4.3 mmol/L (3.5-5.1)
[2018-01-23 07:40] LABS: PLATELET SUFFICIENCY NORMAL (NORMAL); TOTAL CELLS COUNTED 100 #CELLS
[2018-01-23 08:00] VITALS: BP 147/70
[2018-01-23] MEDS ORDERED: PREDNISONE10 MG PO (08:51)
[2018-01-23] MEDS ORDERED: DOXYCYCLINE100 M3 PO (08:51)
[2018-01-23 12:00] VITALS: BP 126/60
== END 2018-01-23 14:11 | disposition home or self-care (01) | DRG 871 ==
LOC: ED 05:21 → 4E 07:34 → EDHOLD 07:34 → 4E 07:51
PROVIDERS: Emergency Medicine Emergency Medical Services; Internal Medicine Hospice and Palliative Medicine; Registered Nurse
DX: A41.9 Sepsis, unspecified organism (principal); J18.9 Pneumonia, unspecified organism; E44.0 Moderate protein-calorie malnutrition; I13.0 Hypertensive heart and chronic kidney disease with heart failure and stage 1 through stage 4 chronic kidney disease, or unspecified chronic kidney disease; E11.22 Type 2 diabetes mellitus with diabetic chronic kidney disease; I50.22 Chronic systolic (congestive) heart failure; N18.4 Chronic kidney disease, stage 4 (severe); N39.0 Urinary tract infection, site not specified; J44.0 Chronic obstructive pulmonary disease with (acute) lower respiratory infection; J44.1 Chronic obstructive pulmonary disease with (acute) exacerbation; E11.65 Type 2 diabetes mellitus with hyperglycemia; E66.01 Morbid (severe) obesity due to excess calories; I25.10 Atherosclerotic heart disease of native coronary artery without angina pectoris; K21.9 Gastro-esophageal reflux disease without esophagitis; R31.9 Hematuria, unspecified; E78.2 Mixed hyperlipidemia; D64.9 Anemia, unspecified; G25.81 Restless legs syndrome; G47.33 Obstructive sleep apnea (adult) (pediatric); E55.9 Vitamin D deficiency, unspecified; Z95.1 Presence of aortocoronary bypass graft; Z90.49 Acquired absence of other specified parts of digestive tract; Z82.49 Family history of ischemic heart disease and other diseases of the circulatory system; Z82.3 Family history of stroke; Z79.4 Long term (current) use of insulin; Z88.2 Allergy status to sulfonamides; Z88.6 Allergy status to analgesic agent; Z88.8 Allergy status to other drugs, medicaments and biological substances; Z79.82 Long term (current) use of aspirin; Z79.899 Other long term (current) drug therapy; Z87.891 Personal history of nicotine dependence; Z68.32 Body mass index [BMI] 32.0-32.9, adult

== ENCOUNTER → 2018-02-05 | Outpatient (CLI) | payer OTHER ==
[~2018-02-05] MED LIST changes: +CORTISPORIN SUS10 ML OT; +[UNRECOGNIZED DRUG - OTHER] SQ
== END | disposition home or self-care (01) ==
LOC: RESCLI 03:59
DX: E11.9 Type 2 diabetes mellitus without complications (principal); J18.9 Pneumonia, unspecified organism; J44.1 Chronic obstructive pulmonary disease with (acute) exacerbation

== ENCOUNTER 2018-03-27 12:20 | Emergency (ER) | payer OTHER ==
[~2018-03-27] VITALS: Ht 154.9 cm; Wt 77.1 kg
[2018-03-27 12:41] LABS: HEMATOCRIT 37.9 % (37.0-47.0); MEAN CELL VOLUME 85.4 fl (81.0-99.0); MEAN CORPUSCULAR HGB CONC 31.7 g/dl (33.0-37.0); MEAN PLATELET VOLUME 10.7 fl (9.6-12.3); PLATELET COUNT AUTOMATED 203 10*3/uL (130-400); RED BLOOD COUNT 4.44 10*6/uL (4.10-5.10); RED CELL DISTRI WIDTH 13.7 % (0-14.5)
[2018-03-27 12:51] LABS: ACT PARTIAL THROMBO TIME 30.3 SECONDS (20.8-31.5); INTERNATIONAL NORM RATIO 1.1 (2.0-3.5)
[2018-03-27 12:57] LABS: ALBUMIN 3.1 gm/dl (3.1-4.5); CREATININE 3.67 mg/dL (0.55-1.02); POTASSIUM 4.1 mmol/L (3.5-5.1); TOTAL PROTEIN 7.1 gm/dL (6.4-8.2)
[2018-03-27 13:01] LABS: TOTAL CELLS COUNTED 100 #CELLS
[2018-03-27 13:02] LABS: PLATELET SUFFICIENCY NORMAL (NORMAL)
[2018-03-27 13:16] LABS: BILIRUBIN NEGATIVE (NEGATIVE); BLOOD 3+ (NEGATIVE); CLARITY CLOUDY (CLEAR); COLOR YELLOW (YELLOW); GLUCOSE 3+ (NEGATIVE); KETONE NEGATIVE (NEGATIVE); LEUKO ESTERASE 2+ (NEGATIVE); NITRITE NEGATIVE (NEGATIVE); SPECIFIC GRAVITY 1.015 (1.005-1.030); UROBILINOGEN 0.2 E.U./dl (0.2-1.0)
[2018-03-27 13:28] LABS: BACTERIA 2+; EPITHELIAL CELLS 30-35; WBC TNTC wbc/hpf (0-5)
[2018-03-27 17:35] VITALS: BP 101/51
== END 2018-03-27 17:40 | disposition short-term general hospital (02) ==
LOC: ED 12:20
PROVIDERS: Emergency Medicine
DX: A41.9 Sepsis, unspecified organism (principal); N17.9 Acute kidney failure, unspecified; N15.1 Renal and perinephric abscess; I25.10 Atherosclerotic heart disease of native coronary artery without angina pectoris; I13.0 Hypertensive heart and chronic kidney disease with heart failure and stage 1 through stage 4 chronic kidney disease, or unspecified chronic kidney disease; E11.22 Type 2 diabetes mellitus with diabetic chronic kidney disease; N18.4 Chronic kidney disease, stage 4 (severe); I50.9 Heart failure, unspecified; J44.9 Chronic obstructive pulmonary disease, unspecified; K21.9 Gastro-esophageal reflux disease without esophagitis; E78.5 Hyperlipidemia, unspecified; E66.01 Morbid (severe) obesity due to excess calories; G47.33 Obstructive sleep apnea (adult) (pediatric); G25.81 Restless legs syndrome; Z79.4 Long term (current) use of insulin; Z95.1 Presence of aortocoronary bypass graft; Z87.891 Personal history of nicotine dependence; Z98.890 Other specified postprocedural states; Z90.49 Acquired absence of other specified parts of digestive tract; Z79.82 Long term (current) use of aspirin; Z88.6 Allergy status to analgesic agent; Z88.1 Allergy status to other antibiotic agents; Z88.8 Allergy status to other drugs, medicaments and biological substances; Z87.442 Personal history of urinary calculi

== ENCOUNTER → 2018-04-22 | Outpatient (CLI) | payer OTHER ==
[2018-04-22 13:02] LABS: BILIRUBIN NEGATIVE (NEGATIVE); BLOOD 2+ (NEGATIVE); COLOR YELLOW (YELLOW); GLUCOSE TRACE (NEGATIVE); KETONE NEGATIVE (NEGATIVE); LEUKO ESTERASE NEGATIVE (NEGATIVE); NITRITE NEGATIVE (NEGATIVE); UROBILINOGEN 0.2 E.U./dl (0.2-1.0)
[2018-04-22 13:10] LABS: URINE CREATININE RANDOM 70.8 mg/dL
[2018-04-22 13:13] LABS: BASO % 0.4 % (0.0-1.0); EOS # 0.5 10*3/uL (0.0-0.4); EOS % 6.8 % (1.0-4.0); HEMATOCRIT 31.4 % (37.0-47.0); HEMOGLOBIN 9.6 g/dl (12.0-16.0); LYMPH # 1.4 10*3/uL (1.3-4.4); LYMPH % 17.6 % (27.0-41.0); MEAN CELL VOLUME 84.6 fl (81.0-99.0); MEAN CORPUSCULAR HGB 25.9 pg (27.0-31.0); MEAN CORPUSCULAR HGB CONC 30.6 g/dl (33.0-37.0); MEAN PLATELET VOLUME 10.3 fl (9.6-12.3); MONO # 0.3 10*3/uL (0.1-1.0); MONO % 3.9 % (3.0-9.0); NEUT # 5.4 10*3/uL (2.3-7.9); NEUT % 70.9 % (47.0-73.0); PLATELET COUNT AUTOMATED 240 10*3/uL (130-400); RED BLOOD COUNT 3.71 10*6/uL (4.10-5.10); RED CELL DISTRI WIDTH 13.8 % (0-14.5); WHITE BLOOD COUNT 7.7 10*3/uL (4.8-10.8)
[2018-04-22 13:15] LABS: BACTERIA TRACE; CLARITY SL CLOUDY (CLEAR); WBC 31-40 wbc/hpf (0-5)
[2018-04-22 13:16] LABS: EPITHELIAL CELLS 16-20
[2018-04-22 13:45] LABS: ALBUMIN 3.4 gm/dl (3.1-4.5); CREATININE 2.78 mg/dL (0.55-1.02); PHOSPHOROUS 4.7 mg/dL (2.5-4.9); POTASSIUM 4.3 mmol/L (3.5-5.1)
[2018-04-22 14:05] LABS: FERRITIN 21.1 ng/mL (10.0-291.0); PTH INTACT 132.4 pg/mL (14.0-72.0)
== END | disposition home or self-care (01) ==
LOC: LAB 12:14
PROVIDERS: Internal Medicine Nephrology
DX: N18.4 Chronic kidney disease, stage 4 (severe) (principal); E11.65 Type 2 diabetes mellitus with hyperglycemia; E11.22 Type 2 diabetes mellitus with diabetic chronic kidney disease; N25.81 Secondary hyperparathyroidism of renal origin; D63.1 Anemia in chronic kidney disease

== ENCOUNTER → 2018-04-26 | Outpatient (CLI) | payer OTHER | END | disposition home or self-care (01) | LOC: CT 10:33 | DX: Q61.3 Polycystic kidney, unspecified (principal); N15.1 Renal and perinephric abscess; N17.9 Acute kidney failure, unspecified ==

== ENCOUNTER → 2018-05-08 | Outpatient (CLI) | payer OTHER | END | disposition home or self-care (01) | LOC: RESCLI 03:05 | DX: I11.0 Hypertensive heart disease with heart failure (principal); I50.22 Chronic systolic (congestive) heart failure; E11.65 Type 2 diabetes mellitus with hyperglycemia; K21.9 Gastro-esophageal reflux disease without esophagitis; I25.810 Atherosclerosis of coronary artery bypass graft(s) without angina pectoris; E78.5 Hyperlipidemia, unspecified; E66.01 Morbid (severe) obesity due to excess calories; N15.1 Renal and perinephric abscess; G47.30 Sleep apnea, unspecified; Q61.3 Polycystic kidney, unspecified; J30.2 Other seasonal allergic rhinitis; R59.0 Localized enlarged lymph nodes; Z79.4 Long term (current) use of insulin; Z88.2 Allergy status to sulfonamides; Z88.8 Allergy status to other drugs, medicaments and biological substances ==

== ENCOUNTER → 2018-06-11 | Outpatient (CLI) | payer OTHER | END | disposition home or self-care (01) | LOC: RESCLI 03:24 | DX: I25.810 Atherosclerosis of coronary artery bypass graft(s) without angina pectoris (principal); I50.22 Chronic systolic (congestive) heart failure; E11.65 Type 2 diabetes mellitus with hyperglycemia; R59.0 Localized enlarged lymph nodes; N15.1 Renal and perinephric abscess; G47.30 Sleep apnea, unspecified; Q61.3 Polycystic kidney, unspecified; E78.5 Hyperlipidemia, unspecified; K21.9 Gastro-esophageal reflux disease without esophagitis; J30.2 Other seasonal allergic rhinitis; E66.01 Morbid (severe) obesity due to excess calories; Z87.891 Personal history of nicotine dependence; Z79.899 Other long term (current) drug therapy; Z88.8 Allergy status to other drugs, medicaments and biological substances ==

== ENCOUNTER → 2018-08-23 | Outpatient (CLI) | payer OTHER ==
[~2018-08-23] MED LIST changes: +ALDACTONE25 MG PO; +ATORVASTATIN CA40 M1 PO; +BASAG SOL SQ; +FEROSUL325 MG PO; +HUMALOG100 UNIT/2 SQ; +K-TAB20 MEQ PO; +PANTOPRAZOLE SO40 MG PO; +PROAIR HFA8.5 GM INH; +SODIUM BICARBO650 MG PO; +VITAMIN D31000 UNI1 PO; +Vitamin D PO; +ZITHROMAX500 MG PO
== END | disposition home or self-care (01) ==
LOC: RESCLI 01:01
DX: I11.0 Hypertensive heart disease with heart failure (principal); I50.22 Chronic systolic (congestive) heart failure; E11.65 Type 2 diabetes mellitus with hyperglycemia; I25.810 Atherosclerosis of coronary artery bypass graft(s) without angina pectoris; N15.1 Renal and perinephric abscess; G47.30 Sleep apnea, unspecified; Q61.3 Polycystic kidney, unspecified; J44.9 Chronic obstructive pulmonary disease, unspecified; E78.5 Hyperlipidemia, unspecified; K21.9 Gastro-esophageal reflux disease without esophagitis; J30.2 Other seasonal allergic rhinitis; E66.01 Morbid (severe) obesity due to excess calories; N39.0 Urinary tract infection, site not specified; Z79.4 Long term (current) use of insulin

== ENCOUNTER → 2018-08-30 | Outpatient (CLI) | payer OTHER ==
[2018-08-30 09:10] LABS: BASO % 0.1 % (0.0-1.0); EOS # 0.4 10*3/uL (0.0-0.4); EOS % 4.5 % (1.0-4.0); HEMOGLOBIN 8.4 g/dl (12.0-16.0); LYMPH # 1.1 10*3/uL (1.3-4.4); LYMPH % 11.9 % (27.0-41.0); MEAN CELL VOLUME 82.8 fl (81.0-99.0); MEAN CORPUSCULAR HGB 25.8 pg (27.0-31.0); MEAN CORPUSCULAR HGB CONC 31.1 g/dl (33.0-37.0); MEAN PLATELET VOLUME 10.4 fl (9.6-12.3); MONO # 0.5 10*3/uL (0.1-1.0); MONO % 4.8 % (3.0-9.0); NEUT # 7.3 10*3/uL (2.3-7.9); NEUT % 78.5 % (47.0-73.0); PLATELET COUNT AUTOMATED 216 10*3/uL (130-400); RED BLOOD COUNT 3.26 10*6/uL (4.10-5.10); RED CELL DISTRI WIDTH 15.9 % (0-14.5); WHITE BLOOD COUNT 9.3 10*3/uL (4.8-10.8)
[2018-08-30 11:02] LABS: PTH INTACT 215.2 pg/mL (18.5-88.0); VITAMIN D, 25-HYDROXY 37.8 ng/mL (30-100)
[2018-08-30 17:12] LABS: URINE CREATININE RANDOM 85.4 mg/dL
== END | disposition home or self-care (01) ==
LOC: LAB 08:20
PROVIDERS: Internal Medicine Nephrology
DX: N18.4 Chronic kidney disease, stage 4 (severe) (principal); D63.1 Anemia in chronic kidney disease; N25.81 Secondary hyperparathyroidism of renal origin

== ENCOUNTER 2018-09-01 21:15 | Emergency (ER) | payer OTHER ==
[~2018-09-01] VITALS: Ht 154.9 cm; Wt 83.9 kg
[~2018-09-01 21:15] MED LIST changes: -ALDACTONE25 MG PO; -ATORVASTATIN CA40 M1 PO; -BASAG SOL SQ; -FEROSUL325 MG PO; -HUMALOG100 UNIT/2 SQ; -K-TAB20 MEQ PO; -PANTOPRAZOLE SO40 MG PO; -PROAIR HFA8.5 GM INH; -SODIUM BICARBO650 MG PO; -VITAMIN D31000 UNI1 PO; -Vitamin D PO; -ZITHROMAX500 MG PO
[2018-09-01 21:54] LABS: MEAN CELL VOLUME 84.1 fl (81.0-99.0); MEAN CORPUSCULAR HGB 26.2 pg (27.0-31.0); MEAN CORPUSCULAR HGB CONC 31.1 g/dl (33.0-37.0); MEAN PLATELET VOLUME 10.3 fl (9.6-12.3); PLATELET COUNT AUTOMATED 187 10*3/uL (130-400); RED BLOOD COUNT 1.95 10*6/uL (4.10-5.10); RED CELL DISTRI WIDTH 16.6 % (0-14.5); WHITE BLOOD COUNT 12.4 10*3/uL (4.8-10.8)
[2018-09-01 21:57] LABS: HEMOGLOBIN 5.1 g/dl (12.0-16.0)
[2018-09-01 21:58] LABS: HEMATOCRIT 16.4 % (37.0-47.0)
[2018-09-01 22:06] LABS: ACT PARTIAL THROMBO TIME 23.3 SECONDS (20.8-31.5)
[2018-09-01 22:10] LABS: ALBUMIN 2.8 gm/dl (3.1-4.5); ALKALINE PHOSPHATASE 71 U/L (45-117); BUN 54 mg/dl (7-24); CHLORIDE 111 mmol/L (98-107); CREATININE 4.19 mg/dL (0.55-1.02); POTASSIUM 4.1 mmol/L (3.5-5.1); SGOT/AST 8 IU/L (3-35); SGPT/ALT 15 U/L (12-78); SODIUM 140 mmol/L (136-145); TOTAL PROTEIN 5.9 gm/dL (6.4-8.2)
[2018-09-01 22:14] LABS: BETA-HCG, QUANT < 1.0 mIU/mL (1-3)
[2018-09-01 22:16] LABS: BASOPHILS 2 % (0-1); PLATELET SUFFICIENCY NORMAL (NORMAL); POLYCHROMASIA SLIGHT; TOTAL CELLS COUNTED 100 #CELLS
[2018-09-01 23:34] LABS: BILIRUBIN NEGATIVE (NEGATIVE); BLOOD 3+ (NEGATIVE); CLARITY CLOUDY (CLEAR); COLOR RED (YELLOW); GLUCOSE 1+ (NEGATIVE); KETONE NEGATIVE (NEGATIVE); LEUKO ESTERASE TRACE (NEGATIVE); NITRITE NEGATIVE (NEGATIVE); UROBILINOGEN 0.2 E.U./dl (0.2-1.0)
[2018-09-01 23:45] LABS: BACTERIA 3+; RBC TNTC rbc/hpf (0-2)
[2018-09-02 01:40] VITALS: BP 121/60
== END 2018-09-02 02:27 | disposition short-term general hospital (02) ==
LOC: ED 21:15
PROVIDERS: Student in an Organized Health Care Education/Training Program
DX: N93.9 Abnormal uterine and vaginal bleeding, unspecified (principal); I95.9 Hypotension, unspecified; R42 Dizziness and giddiness; R53.1 Weakness; I25.10 Atherosclerotic heart disease of native coronary artery without angina pectoris; I13.0 Hypertensive heart and chronic kidney disease with heart failure and stage 1 through stage 4 chronic kidney disease, or unspecified chronic kidney disease; E11.22 Type 2 diabetes mellitus with diabetic chronic kidney disease; N18.4 Chronic kidney disease, stage 4 (severe); I50.9 Heart failure, unspecified; E78.5 Hyperlipidemia, unspecified; K21.9 Gastro-esophageal reflux disease without esophagitis; J44.9 Chronic obstructive pulmonary disease, unspecified; E66.01 Morbid (severe) obesity due to excess calories; E11.40 Type 2 diabetes mellitus with diabetic neuropathy, unspecified; Z87.891 Personal history of nicotine dependence; Z88.2 Allergy status to sulfonamides; Z88.6 Allergy status to analgesic agent; Z79.899 Other long term (current) drug therapy; Z79.82 Long term (current) use of aspirin

== ENCOUNTER 2018-09-14 13:26 | Inpatient (IN) | payer OTHER ==
[~2018-09-14] VITALS: Ht 154.9 cm; Wt 87.3 kg
--- NOTE | ~2018-09-14 | O ---
[place], [place] OPERATIVE NOTE NAME: [facility]KLAND [facility] [id number] UNIT #: [id number] ROOM: 531 DOCTOR: ROXANNE MCALLISTER,RAMOS BIRTHDATE: [birth year] DOS: 09/18/2018 GASTROENDOSCOPIC REPORT INDICATIONS: The patient is a 47-year-old, who was presented with chief complaint of anemia, epigastric distress, undergoing investigation. PROCEDURE: Today's procedure part of investigation is panendoscopy plus biopsy. PREMEDICATION: Propofol. SCOPE: Olympus forward-viewing gastroscope Q10 video. REPORT: After putting the patient in left lateral position and application of lubricant to the scope, the scope was introduced. Thereafter, under direct visualization, advanced through the length of esophagus without difficulty. A 3 cm hiatal hernia was noticed, which is prolapsing upon gagging of the patient. Gastric pouch was entered into a small erosions and linear ulceration admixed in the antrum was noticed. Antral biopsy obtained from margin of the ulcer. Duodenal bulb, second and third part within normal limits. GI reflexion of the scope reveals cardia to be benign. Air was suctioned out. The patient was extubated, tolerated the procedure well. IMPRESSION: Antral erosion and linear small ulceration, hiatal hernia, and gastritis. PLAN AND DISCUSSION: Protonix 40 mg one every day, would suffice management. Awaiting H. pylori result. Other adjunctive diagnoses as has already been dictated in past medical and surgical history. Diet could be GERD, diabetic 1800 ADA. RAMOS OLIVEIRA MD CM:OPRECORD:OPERATIVE NOTE [id number] RAMOS OLIVEIRA MD 09/25/18 0714 interface
--- NOTE | ~2018-09-14 | EKG ---
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
--- NOTE | ~2018-09-14 | CON ---
[place], [place] REPORT OF CONSULTATION NAME: JENNIE KIRKLAND [facility] #: [id number] UNIT #: [id number] ROOM: 531 DOCTOR: ROXANNE MCALLISTERRMAOS BIRTHDATE: [birth year] DOS: 09/18/2018 GASTROINTESTINAL CONSULTATION HISTORY OF PRESENT ILLNESS: The patient has presented with multiple medical problems, among which has been anemia with hemoglobin and hematocrit of 9 and 29, which subsequently dropped to 9 and 28 and has been essentially stabilized her on the same area. However, the patient with epigastric distress. The patient had a panel of blood work done. H flu was negative. Lactic acid was 1.9. CBC was reassessed. BUN and creatinine of 32 and 3.49. GFR is 17. Electrolytes are balanced. Albumin is 3. BNP of greater than 10,000. Chest x-ray, no acute pathology. Comprehensive metabolic panel was reassessed again and again. Essentially remaining stable findings since admission. Her blood cultures are negative. PAST MEDICAL HISTORY: Associated with COPD, chronic renal insufficiency, congestive heart failure, coronary artery disease, polycystic kidneys, protein-calorie malnutrition, gastroesophageal reflux, and diabetes mellitus. PAST SURGICAL HISTORY: She has CABG, AV fistula, cholecystectomy, and C-sections. HOME MEDICATIONS: Reviewed. ALLERGIES: THE PATIENT IS ALLERGIC TO SULFA PRODUCTS AND IBUPROFEN. SOCIAL HISTORY: She is a past smoker and nonalcohol consumer. FAMILY HISTORY: Noncontributory. REVIEW OF SYSTEMS: HEENT: Denies double vision, blurred vision. RESPIRATORY: Denies shortness of breath. CARDIOVASCULAR: Denies chest pain. DIGESTIVE SYSTEM: Epigastric distress. Atypical complaint of subxiphoid pain. PHYSICAL EXAMINATION: VITAL SIGNS: Stable. HEENT: Head is normocephalic, nontraumatic. Eyes: Pupils are round, reactive. Sclerae nonicteric. Conjunctivae pink. Nose: Nonobstructed, nondeviated. Mouth free of aphthae ulcer, and thrush. NECK: Supple. No thyromegaly. No cervical lymphadenopathy. CHEST: Symmetric anatomy. Equal expansion. Decreased air entry in general. Scattered wheezes. HEART: Normal sinus rhythm. No gallop. No murmur. No rub. ABDOMEN: Soft. No hepato-organomegaly. Bowel sounds present. Slightly obese. No rebound effect. EXTREMITIES: Stasis dermatitis and edema 1+ was noticed. NEUROLOGIC: She is alert and oriented to time, place, and person. [place], [place] REPORT OF CONSULTATION NAME: JENNIE KIRKLAND [facility]: [id number] UNIT #: [id number] ROOM: 531 DOCTOR: RAMOS OLIVEIRA MD BIRTHDATE: [birth year] LABORATORY DATA: Labs reviewed. Records reviewed. PLAN AND DISCUSSION: Due to the atypical epigastric pain and borderline anemia, we are going to proceed with endoscopic assessment of upper tract. OTHER ADJUNCTIVE DIAGNOSES: As dictated in past medical history, chronic obstructive pulmonary disease, polycystic kidney, congestive heart failure, coronary artery disease, hyperlipidemia, and diabetes mellitus all has been recognized. Thank you very much indeed. RAMOS OLIVEIRA MD CM:CONSTR:REPORT OF CONSULTATION 1558 09/25/18 0713 interface
[2018-09-14 13:27] VITALS: BP 164/64
[2018-09-14 14:40] VITALS: BP 156/72
[2018-09-14 14:40] LABS: BASO % 0.3 % (0.0-1.0); EOS # 0.4 10*3/uL (0.0-0.4); HEMATOCRIT 29.2 % (37.0-47.0); LYMPH # 1.1 10*3/uL (1.3-4.4); LYMPH % 9.7 % (27.0-41.0); MEAN CELL VOLUME 89.3 fl (81.0-99.0); MEAN CORPUSCULAR HGB 27.5 pg (27.0-31.0); MEAN CORPUSCULAR HGB CONC 30.8 g/dl (33.0-37.0); MEAN PLATELET VOLUME 10.5 fl (9.6-12.3); MONO # 0.5 10*3/uL (0.1-1.0); MONO % 4.1 % (3.0-9.0); NEUT # 9.6 10*3/uL (2.3-7.9); NEUT % 82.6 % (47.0-73.0); PLATELET COUNT AUTOMATED 207 10*3/uL (130-400); RED BLOOD COUNT 3.27 10*6/uL (4.10-5.10); RED CELL DISTRI WIDTH 15.8 % (0-14.5); WHITE BLOOD COUNT 11.6 10*3/uL (4.8-10.8)
[2018-09-14 14:56] LABS: ALKALINE PHOSPHATASE 68 U/L (45-117); BUN 32 mg/dl (7-24); CHLORIDE 113 mmol/L (98-107); CREATININE 3.49 mg/dL (0.55-1.02); POTASSIUM 4.6 mmol/L (3.5-5.1); SGOT/AST 16 IU/L (3-35); SGPT/ALT 23 U/L (12-78); SODIUM 141 mmol/L (136-145)
[2018-09-14 15:00] LABS: TROPONIN I < 0.015 ng/ml (<0.045)
[2018-09-14 15:34] VITALS: BP 160/71
[2018-09-14 15:56] VITALS: BP 141/63
[2018-09-14 16:16] VITALS: BP 141/51
[2018-09-14] MEDS ORDERED: LANTUS SOL100 UNIT/1 SQ (16:29)
[2018-09-14] MEDS ORDERED: PROAIR HFA8.5 GM INH (16:34)
[2018-09-14 16:40] LABS: INTERNATIONAL NORM RATIO 0.9 (2.0-3.5)
[2018-09-14 20:00] VITALS: BP 138/59
[2018-09-15] VITALS: BP 128/48
[2018-09-15 06:00] LABS: HEMATOCRIT 25.5 % (37.0-47.0); HEMOGLOBIN 7.8 g/dl (12.0-16.0); MEAN CELL VOLUME 89.8 fl (81.0-99.0); MEAN CORPUSCULAR HGB 27.5 pg (27.0-31.0); MEAN CORPUSCULAR HGB CONC 30.6 g/dl (33.0-37.0); MEAN PLATELET VOLUME 10.9 fl (9.6-12.3); PLATELET COUNT AUTOMATED 187 10*3/uL (130-400); RED BLOOD COUNT 2.84 10*6/uL (4.10-5.10); RED CELL DISTRI WIDTH 15.6 % (0-14.5); WHITE BLOOD COUNT 9.2 10*3/uL (4.8-10.8)
[2018-09-15 06:06] LABS: ALBUMIN 2.8 gm/dl (3.1-4.5); CREATININE 3.67 mg/dL (0.55-1.02); PHOSPHOROUS 2.8 mg/dL (2.5-4.9); TOTAL PROTEIN 6.6 gm/dL (6.4-8.2)
[2018-09-15 06:13] LABS: THYROID STIM HORMONE (HS) 0.641 uIU/ml (0.358-4.75)
[2018-09-15 06:18] LABS: ACT PARTIAL THROMBO TIME 26.2 SECONDS (20.8-31.5)
[2018-09-15 06:48] LABS: PLATELET SUFFICIENCY NORMAL (NORMAL); POLYCHROMASIA SLIGHT; TOTAL CELLS COUNTED 100 #CELLS
[2018-09-15 08:00] VITALS: BP 114/56
[2018-09-15 09:25] LABS: VITAMIN D, 25-HYDROXY 24.3 ng/mL (30-100)
[2018-09-15 12:00] VITALS: BP 111/45
[2018-09-15 16:00] VITALS: BP 124/60
[2018-09-15 20:00] VITALS: BP 120/52
[2018-09-16] VITALS (11 sets, daily range): BP systolic 114–151; BP diastolic 48–69
[2018-09-16 06:31] LABS: HEMATOCRIT 24.1 % (37.0-47.0); HEMOGLOBIN 7.4 g/dl (12.0-16.0); MEAN CELL VOLUME 89.9 fl (81.0-99.0); MEAN CORPUSCULAR HGB 27.6 pg (27.0-31.0); MEAN CORPUSCULAR HGB CONC 30.7 g/dl (33.0-37.0); MEAN PLATELET VOLUME 11.2 fl (9.6-12.3); PLATELET COUNT AUTOMATED 194 10*3/uL (130-400); RED BLOOD COUNT 2.68 10*6/uL (4.10-5.10); RED CELL DISTRI WIDTH 15.8 % (0-14.5); WHITE BLOOD COUNT 13.2 10*3/uL (4.8-10.8)
[2018-09-16 06:55] LABS: CREATININE 3.87 mg/dL (0.55-1.02); POTASSIUM 5.4 mmol/L (3.5-5.1)
[2018-09-16 07:36] LABS: PLATELET SUFFICIENCY NORMAL (NORMAL); POLYCHROMASIA SLIGHT; TOTAL CELLS COUNTED 100 #CELLS
[2018-09-17] VITALS: BP 141/70
[2018-09-17 06:23] LABS: HEMATOCRIT 28.3 % (37.0-47.0); HEMOGLOBIN 8.9 g/dl (12.0-16.0); MEAN CELL VOLUME 89.3 fl (81.0-99.0); MEAN CORPUSCULAR HGB 28.1 pg (27.0-31.0); MEAN CORPUSCULAR HGB CONC 31.4 g/dl (33.0-37.0); MEAN PLATELET VOLUME 11.2 fl (9.6-12.3); NUCLEATED RED BLOOD CELL 0.2 % (0.0-0.0); PLATELET COUNT AUTOMATED 218 10*3/uL (130-400); RED BLOOD COUNT 3.17 10*6/uL (4.10-5.10); RED CELL DISTRI WIDTH 15.4 % (0-14.5); WHITE BLOOD COUNT 14.1 10*3/uL (4.8-10.8)
[2018-09-17 06:34] LABS: CREATININE 3.93 mg/dL (0.55-1.02); POTASSIUM 4.9 mmol/L (3.5-5.1)
[2018-09-17 07:24] LABS: PLATELET SUFFICIENCY NORMAL (NORMAL); POLYCHROMASIA SLIGHT; TOTAL CELLS COUNTED 100 #CELLS
[2018-09-17 08:00] VITALS: BP 153/62
[2018-09-17 12:00] VITALS: BP 147/68
[2018-09-17 16:00] VITALS: BP 148/72
[2018-09-17 20:00] VITALS: BP 164/96
[2018-09-18] VITALS (9 sets, daily range): BP systolic 96–160; BP diastolic 64–74
[2018-09-18 07:53] LABS: HEMATOCRIT 28.8 % (37.0-47.0); HEMOGLOBIN 8.9 g/dl (12.0-16.0); MEAN CELL VOLUME 87.8 fl (81.0-99.0); MEAN CORPUSCULAR HGB 27.1 pg (27.0-31.0); MEAN CORPUSCULAR HGB CONC 30.9 g/dl (33.0-37.0); MEAN PLATELET VOLUME 11.4 fl (9.6-12.3); NUCLEATED RED BLOOD CELL 0.3 % (0.0-0.0); PLATELET COUNT AUTOMATED 219 10*3/uL (130-400); RED BLOOD COUNT 3.28 10*6/uL (4.10-5.10); RED CELL DISTRI WIDTH 14.9 % (0-14.5); WHITE BLOOD COUNT 10.6 10*3/uL (4.8-10.8)
[2018-09-18 08:13] LABS: TOTAL CELLS COUNTED 100 #CELLS
[2018-09-18 08:14] LABS: PLATELET SUFFICIENCY NORMAL (NORMAL); POLYCHROMASIA SLIGHT
[2018-09-18 08:18] LABS: BUN 74 mg/dl (7-24); CHLORIDE 111 mmol/L (98-107); POTASSIUM 4.7 mmol/L (3.5-5.1); SODIUM 138 mmol/L (136-145)
[2018-09-18 08:22] LABS: BETA-HCG, QUANT < 1.0 mIU/mL (1-3)
[2018-09-19] VITALS: BP 151/64
[2018-09-19 06:53] LABS: POTASSIUM 4.9 mmol/L (3.5-5.1)
[2018-09-19 07:25] LABS: CREATININE 3.87 mg/dL (0.55-1.02); PHOSPHOROUS 5.6 mg/dL (2.5-4.9)
[2018-09-19 07:31] LABS: ALBUMIN 2.6 gm/dl (3.1-4.5)
[2018-09-19 08:00] VITALS: BP 162/68
[2018-09-19 12:00] VITALS: BP 152/69
[2018-09-19] MEDS ORDERED: FEROSUL325 MG PO (14:01)
[2018-09-19] MEDS ORDERED: Vitamin D PO (14:01)
[2018-09-19] MEDS ORDERED: PREDNISONE10 MG PO (14:01)
[2018-09-19] MEDS ORDERED: ZITHROMAX500 MG PO (14:01)
[2018-09-19] MEDS ORDERED: SODIUM BICARBO650 MG PO (14:01)
[2018-09-19] MEDS ORDERED: PANTOPRAZOLE SO40 MG PO (14:01)
== END 2018-09-19 17:45 | disposition home or self-care (01) | DRG 871 ==
LOC: ED 13:26 → 5E 15:01 → EDHOLD 15:01 → 5E 15:55
PROVIDERS: Internal Medicine; Internal Medicine Gastroenterology; Nurse Practitioner Family; Student in an Organized Health Care Education/Training Program
PROC: 5A09357 Assistance with Respiratory Ventilation, Less than 24 Consecutive Hours, Continuous Positive Airway Pressure (ICD-10-PCS; 2018-09-15)
PROC: 5A09357 Assistance with Respiratory Ventilation, Less than 24 Consecutive Hours, Continuous Positive Airway Pressure (ICD-10-PCS; 2018-09-16)
PROC: 30233N1 Transfusion of Nonautologous Red Blood Cells into Peripheral Vein, Percutaneous Approach (ICD-10-PCS; 2018-09-16)
PROC: 0DB68ZX Excision of Stomach, Via Natural or Artificial Opening Endoscopic, Diagnostic (ICD-10-PCS; principal; 2018-09-18)
PROC: 5A09357 Assistance with Respiratory Ventilation, Less than 24 Consecutive Hours, Continuous Positive Airway Pressure (ICD-10-PCS; 2018-09-18)
PROC: 5A09357 Assistance with Respiratory Ventilation, Less than 24 Consecutive Hours, Continuous Positive Airway Pressure (ICD-10-PCS; 2018-09-19)
DX: A41.9 Sepsis, unspecified organism (principal); J18.9 Pneumonia, unspecified organism; N17.0 Acute kidney failure with tubular necrosis; J44.1 Chronic obstructive pulmonary disease with (acute) exacerbation; E44.0 Moderate protein-calorie malnutrition; N18.4 Chronic kidney disease, stage 4 (severe); I50.32 Chronic diastolic (congestive) heart failure; J44.0 Chronic obstructive pulmonary disease with (acute) lower respiratory infection; I13.0 Hypertensive heart and chronic kidney disease with heart failure and stage 1 through stage 4 chronic kidney disease, or unspecified chronic kidney disease; Q61.3 Polycystic kidney, unspecified; E87.8 Other disorders of electrolyte and fluid balance, not elsewhere classified; E66.01 Morbid (severe) obesity due to excess calories; E78.2 Mixed hyperlipidemia; E55.9 Vitamin D deficiency, unspecified; J30.2 Other seasonal allergic rhinitis; K21.9 Gastro-esophageal reflux disease without esophagitis; G47.33 Obstructive sleep apnea (adult) (pediatric); K29.70 Gastritis, unspecified, without bleeding; I25.10 Atherosclerotic heart disease of native coronary artery without angina pectoris; K44.9 Diaphragmatic hernia without obstruction or gangrene; E87.5 Hyperkalemia; E11.65 Type 2 diabetes mellitus with hyperglycemia; E11.22 Type 2 diabetes mellitus with diabetic chronic kidney disease; K25.9 Gastric ulcer, unspecified as acute or chronic, without hemorrhage or perforation; Z88.2 Allergy status to sulfonamides; Z88.6 Allergy status to analgesic agent; Z88.8 Allergy status to other drugs, medicaments and biological substances; Z90.49 Acquired absence of other specified parts of digestive tract; Z95.1 Presence of aortocoronary bypass graft; Z82.49 Family history of ischemic heart disease and other diseases of the circulatory system; Z82.3 Family history of stroke; Z87.891 Personal history of nicotine dependence; Z79.4 Long term (current) use of insulin; Z79.51 Long term (current) use of inhaled steroids; Z79.899 Other long term (current) drug therapy; Z79.82 Long term (current) use of aspirin; Z68.34 Body mass index [BMI] 34.0-34.9, adult

== ENCOUNTER → 2018-10-01 | Outpatient (CLI) | payer OTHER ==
[~2018-10-01] MED LIST changes: +ALDACTONE25 MG PO; +ATORVASTATIN CA40 M1 PO; +BASAG SOL SQ; +FEROSUL325 MG PO; +HUMALOG100 UNIT/2 SQ; +K-TAB20 MEQ PO; +PANTOPRAZOLE SO40 MG PO; +PROAIR HFA8.5 GM INH; +SODIUM BICARBO650 MG PO; +VITAMIN D31000 UNI1 PO; +Vitamin D PO; +ZITHROMAX500 MG PO
== END | disposition home or self-care (01) ==
LOC: RESCLI 04:15
DX: Z09 Encounter for follow-up examination after completed treatment for conditions other than malignant neoplasm (principal); J44.9 Chronic obstructive pulmonary disease, unspecified; J30.9 Allergic rhinitis, unspecified; K21.9 Gastro-esophageal reflux disease without esophagitis; I25.810 Atherosclerosis of coronary artery bypass graft(s) without angina pectoris; I13.0 Hypertensive heart and chronic kidney disease with heart failure and stage 1 through stage 4 chronic kidney disease, or unspecified chronic kidney disease; E11.22 Type 2 diabetes mellitus with diabetic chronic kidney disease; N18.4 Chronic kidney disease, stage 4 (severe); I50.22 Chronic systolic (congestive) heart failure; E55.9 Vitamin D deficiency, unspecified; E66.1 Drug-induced obesity; G25.81 Restless legs syndrome; E78.5 Hyperlipidemia, unspecified; Z79.4 Long term (current) use of insulin

== ENCOUNTER 2018-10-06 11:30 | Inpatient (IN) | payer OTHER ==
[~2018-10-06] VITALS: Ht 154.9 cm; Wt 86.4 kg
--- NOTE | ~2018-10-06 | EKG ---
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
[~2018-10-06 11:30] MED LIST changes: -ALDACTONE25 MG PO; -ATORVASTATIN CA40 M1 PO; -BASAG SOL SQ; -HUMALOG100 UNIT/2 SQ; -K-TAB20 MEQ PO; -VITAMIN D31000 UNI1 PO
[2018-10-06 11:32] VITALS: BP 173/60
[2018-10-06 12:02] LABS: BASO % 0.4 % (0.0-1.0); EOS # 0.5 10*3/uL (0.0-0.4); EOS % 6.4 % (1.0-4.0); HEMATOCRIT 29.3 % (37.0-47.0); HEMOGLOBIN 9.5 g/dl (12.0-16.0); LYMPH # 0.9 10*3/uL (1.3-4.4); LYMPH % 12.6 % (27.0-41.0); MEAN CORPUSCULAR HGB 28.5 pg (27.0-31.0); MEAN CORPUSCULAR HGB CONC 32.4 g/dl (33.0-37.0); MEAN PLATELET VOLUME 10.5 fl (9.6-12.3); MONO # 0.3 10*3/uL (0.1-1.0); MONO % 3.7 % (3.0-9.0); NEUT # 5.5 10*3/uL (2.3-7.9); NEUT % 76.6 % (47.0-73.0); PLATELET COUNT AUTOMATED 209 10*3/uL (130-400); RED BLOOD COUNT 3.33 10*6/uL (4.10-5.10); RED CELL DISTRI WIDTH 15.3 % (0-14.5); WHITE BLOOD COUNT 7.2 10*3/uL (4.8-10.8)
[2018-10-06 12:10] LABS: ACT PARTIAL THROMBO TIME 21.4 SECONDS (20.8-31.5)
[2018-10-06 12:18] LABS: ALKALINE PHOSPHATASE 70 U/L (45-117); BUN 69 mg/dl (7-24); CHLORIDE 109 mmol/L (98-107); LIPASE 249 U/L (73-393); POTASSIUM 4.2 mmol/L (3.5-5.1); SGOT/AST 21 IU/L (3-35); SGPT/ALT 51 U/L (12-78); SODIUM 143 mmol/L (136-145); TOTAL PROTEIN 6.6 gm/dL (6.4-8.2)
[2018-10-06 12:26] LABS: TROPONIN I < 0.015 ng/ml (<0.045)
[2018-10-06 13:57] VITALS: BP 141/57
[2018-10-06 14:30] VITALS: BP 144/64
[2018-10-06] MEDS ORDERED: REQUIP0.5 MG PO (15:37)
[2018-10-06] MEDS ORDERED: HUMALOG100 UNIT/2 SQ (15:38)
[2018-10-06] MEDS ORDERED: BASAG SOL SQ (15:41)
[2018-10-06] MEDS ORDERED: ATORVASTATIN CA40 M1 PO (15:43)
[2018-10-06] MEDS ORDERED: VITAMIN D31000 UNI1 PO (15:43)
[2018-10-06 16:00] VITALS: BP 146/54
[2018-10-06 20:00] VITALS: BP 152/61
[2018-10-07] VITALS: BP 114/59
[2018-10-07 06:47] LABS: BASO % 0.3 % (0.0-1.0); EOS # 0.5 10*3/uL (0.0-0.4); EOS % 7.3 % (1.0-4.0); HEMATOCRIT 28.4 % (37.0-47.0); HEMOGLOBIN 8.8 g/dl (12.0-16.0); LYMPH # 0.9 10*3/uL (1.3-4.4); MEAN CELL VOLUME 88.2 fl (81.0-99.0); MEAN CORPUSCULAR HGB 27.3 pg (27.0-31.0); MEAN PLATELET VOLUME 11.1 fl (9.6-12.3); MONO # 0.3 10*3/uL (0.1-1.0); MONO % 4.5 % (3.0-9.0); NEUT # 4.5 10*3/uL (2.3-7.9); NEUT % 72.4 % (47.0-73.0); PLATELET COUNT AUTOMATED 212 10*3/uL (130-400); RED BLOOD COUNT 3.22 10*6/uL (4.10-5.10); RED CELL DISTRI WIDTH 15.2 % (0-14.5); WHITE BLOOD COUNT 6.2 10*3/uL (4.8-10.8)
[2018-10-07 07:12] LABS: ALBUMIN 2.7 gm/dl (3.1-4.5); CREATININE 3.83 mg/dL (0.55-1.02); PHOSPHOROUS 5.4 mg/dL (2.5-4.9); POTASSIUM 3.9 mmol/L (3.5-5.1); TOTAL PROTEIN 6.2 gm/dL (6.4-8.2)
[2018-10-07 08:00] VITALS: BP 140/80
[2018-10-07 12:00] VITALS: BP 127/54
[2018-10-07 16:00] VITALS: BP 146/55
[2018-10-07 20:00] VITALS: BP 114/54
[2018-10-08] VITALS: BP 135/65
[2018-10-08 06:23] LABS: BASO % 0.2 % (0.0-1.0); EOS # 0.5 10*3/uL (0.0-0.4); EOS % 8.7 % (1.0-4.0); HEMOGLOBIN 8.4 g/dl (12.0-16.0); LYMPH # 1.3 10*3/uL (1.3-4.4); LYMPH % 23.3 % (27.0-41.0); MEAN CELL VOLUME 88.2 fl (81.0-99.0); MEAN CORPUSCULAR HGB 27.5 pg (27.0-31.0); MEAN CORPUSCULAR HGB CONC 31.1 g/dl (33.0-37.0); MEAN PLATELET VOLUME 10.6 fl (9.6-12.3); MONO # 0.4 10*3/uL (0.1-1.0); MONO % 6.5 % (3.0-9.0); NEUT # 3.5 10*3/uL (2.3-7.9); NEUT % 61.1 % (47.0-73.0); PLATELET COUNT AUTOMATED 223 10*3/uL (130-400); RED BLOOD COUNT 3.06 10*6/uL (4.10-5.10); RED CELL DISTRI WIDTH 15.2 % (0-14.5); WHITE BLOOD COUNT 5.7 10*3/uL (4.8-10.8)
[2018-10-08 06:35] LABS: ALBUMIN 2.5 gm/dl (3.1-4.5); POTASSIUM 3.8 mmol/L (3.5-5.1)
[2018-10-08 06:41] LABS: CREATININE 3.98 mg/dL (0.55-1.02); PHOSPHOROUS 5.1 mg/dL (2.5-4.9); TOTAL PROTEIN 5.8 gm/dL (6.4-8.2)
[2018-10-08 08:00] VITALS: BP 134/65
[2018-10-08 12:00] VITALS: BP 136/56
[2018-10-08 16:00] VITALS: BP 130/60
[2018-10-08 20:00] VITALS: BP 122/50
[2018-10-09] VITALS: BP 120/54
[2018-10-09 06:35] LABS: BASO % 0.4 % (0.0-1.0); EOS # 0.4 10*3/uL (0.0-0.4); EOS % 7.4 % (1.0-4.0); HEMATOCRIT 26.6 % (37.0-47.0); HEMOGLOBIN 8.5 g/dl (12.0-16.0); LYMPH # 1.4 10*3/uL (1.3-4.4); LYMPH % 25.2 % (27.0-41.0); MEAN CELL VOLUME 86.6 fl (81.0-99.0); MEAN CORPUSCULAR HGB 27.7 pg (27.0-31.0); MEAN PLATELET VOLUME 10.4 fl (9.6-12.3); MONO # 0.5 10*3/uL (0.1-1.0); MONO % 8.7 % (3.0-9.0); NEUT # 3.3 10*3/uL (2.3-7.9); NEUT % 57.9 % (47.0-73.0); PLATELET COUNT AUTOMATED 229 10*3/uL (130-400); RED BLOOD COUNT 3.07 10*6/uL (4.10-5.10); RED CELL DISTRI WIDTH 14.7 % (0-14.5); WHITE BLOOD COUNT 5.6 10*3/uL (4.8-10.8)
[2018-10-09 06:41] LABS: CREATININE 4.02 mg/dL (0.55-1.02); PHOSPHOROUS 4.8 mg/dL (2.5-4.9); POTASSIUM 3.9 mmol/L (3.5-5.1)
[2018-10-09 08:00] VITALS: BP 124/62
[2018-10-09 12:00] VITALS: BP 157/54
[2018-10-09] MEDS ORDERED: FUROSEMIDE40 MG PO (13:14)
[2018-10-09] MEDS ORDERED: LEVAQUIN750 M1 PO (13:15)
[2018-10-09] MEDS ORDERED: K-TAB20 MEQ PO (13:15)
[2018-10-09] MEDS ORDERED: ALDACTONE25 MG PO (14:02)
== END 2018-10-09 14:18 | disposition home or self-care (01) | DRG 291 ==
LOC: ED 11:30 → EDHOLD 13:04 → 4E 13:04
PROVIDERS: Emergency Medicine; Internal Medicine
DX: I13.0 Hypertensive heart and chronic kidney disease with heart failure and stage 1 through stage 4 chronic kidney disease, or unspecified chronic kidney disease (principal); J18.9 Pneumonia, unspecified organism; I50.23 Acute on chronic systolic (congestive) heart failure; E44.0 Moderate protein-calorie malnutrition; N18.4 Chronic kidney disease, stage 4 (severe); N17.9 Acute kidney failure, unspecified; J44.0 Chronic obstructive pulmonary disease with (acute) lower respiratory infection; E78.5 Hyperlipidemia, unspecified; N28.1 Cyst of kidney, acquired; E11.40 Type 2 diabetes mellitus with diabetic neuropathy, unspecified; E11.22 Type 2 diabetes mellitus with diabetic chronic kidney disease; E55.9 Vitamin D deficiency, unspecified; I25.10 Atherosclerotic heart disease of native coronary artery without angina pectoris; E66.01 Morbid (severe) obesity due to excess calories; E11.65 Type 2 diabetes mellitus with hyperglycemia; J30.2 Other seasonal allergic rhinitis; K21.9 Gastro-esophageal reflux disease without esophagitis; G25.81 Restless legs syndrome; Z95.1 Presence of aortocoronary bypass graft; G47.33 Obstructive sleep apnea (adult) (pediatric); Z79.4 Long term (current) use of insulin; Z68.36 Body mass index [BMI] 36.0-36.9, adult; Z90.49 Acquired absence of other specified parts of digestive tract; Z87.891 Personal history of nicotine dependence; Z82.49 Family history of ischemic heart disease and other diseases of the circulatory system; Z84.1 Family history of disorders of kidney and ureter; Z82.3 Family history of stroke; Z80.51 Family history of malignant neoplasm of kidney; Z88.6 Allergy status to analgesic agent; Z79.82 Long term (current) use of aspirin; Z79.899 Other long term (current) drug therapy

== ENCOUNTER 2018-11-14 | Emergency (ER) | payer OTHER ==
[~2018-11-14] MED LIST changes: +ALDACTONE25 MG PO; +ATORVASTATIN CA40 M1 PO; +BASAG SOL SQ; +HUMALOG100 UNIT/2 SQ; +K-TAB20 MEQ PO; +VITAMIN D31000 UNI1 PO
[2018-11-14 13:37] LABS: BASO % 0.3 % (0.0-1.0); EOS # 0.5 10*3/uL (0.0-0.4); EOS % 5.2 % (1.0-4.0); HEMATOCRIT 37.1 % (37.0-47.0); HEMOGLOBIN 11.8 g/dl (12.0-16.0); LYMPH # 1.4 10*3/uL (1.3-4.4); LYMPH % 15.4 % (27.0-41.0); MEAN CELL VOLUME 85.3 fl (81.0-99.0); MEAN CORPUSCULAR HGB 27.1 pg (27.0-31.0); MEAN CORPUSCULAR HGB CONC 31.8 g/dl (33.0-37.0); MEAN PLATELET VOLUME 10.5 fl (9.6-12.3); MONO # 0.4 10*3/uL (0.1-1.0); MONO % 4.7 % (3.0-9.0); NEUT # 6.6 10*3/uL (2.3-7.9); NEUT % 73.9 % (47.0-73.0); PLATELET COUNT AUTOMATED 245 10*3/uL (130-400); RED BLOOD COUNT 4.35 10*6/uL (4.10-5.10); RED CELL DISTRI WIDTH 14.6 % (0-14.5); WHITE BLOOD COUNT 8.9 10*3/uL (4.8-10.8)
[2018-11-14 13:54] LABS: ALBUMIN 3.4 gm/dl (3.1-4.5); CREATININE 4.19 mg/dL (0.55-1.02); POTASSIUM 4.9 mmol/L (3.5-5.1); TOTAL PROTEIN 7.3 gm/dL (6.4-8.2)
[2018-11-14] MEDS ORDERED: TESSALON PERLE100 M1 PO (15:24)
[2018-11-14] MEDS ORDERED: PREDNISONE50 MG PO (15:24)
[2018-11-14] MEDS ORDERED: ZITHROMAX250 MG PO (15:24)
== END 2018-11-14 15:37 | disposition home or self-care (01) ==
PROVIDERS: Nurse Practitioner Family
DX: H66.92 Otitis media, unspecified, left ear (principal); J20.9 Acute bronchitis, unspecified; J44.9 Chronic obstructive pulmonary disease, unspecified; Z88.8 Allergy status to other drugs, medicaments and biological substances; Z88.2 Allergy status to sulfonamides; Z79.2 Long term (current) use of antibiotics; Z79.899 Other long term (current) drug therapy; Z79.4 Long term (current) use of insulin; Z79.82 Long term (current) use of aspirin; Z90.49 Acquired absence of other specified parts of digestive tract; Z87.891 Personal history of nicotine dependence

== ENCOUNTER → 2018-11-14 | Outpatient (CLI) | payer OTHER ==
[~2018-11-14] MED LIST changes: +AVPAK AZITHROM250 MG PO; +Ipratropium Brom3 ML INH; +MUCINEX1200 M1 PO; +PREDNISONE20 M1 PO; +PREDNISONE50 MG PO; +TESSALON PERLE100 MG PO
[2018-11-14 14:20] LABS: PHOSPHOROUS 3.8 mg/dL (2.5-4.9)
[2018-11-14 14:31] LABS: VITAMIN D, 25-HYDROXY 24.7 ng/mL (30-100)
[2018-11-14 14:32] LABS: FERRITIN 38.9 ng/mL (10.0-291.0); PTH INTACT 264.7 pg/mL (18.5-88.0)
== END | disposition home or self-care (01) ==
PROVIDERS: Internal Medicine Nephrology
DX: E11.22 Type 2 diabetes mellitus with diabetic chronic kidney disease (principal); N18.4 Chronic kidney disease, stage 4 (severe); D63.1 Anemia in chronic kidney disease; N25.81 Secondary hyperparathyroidism of renal origin; R63.8 Other symptoms and signs concerning food and fluid intake

== ENCOUNTER → 2018-12-03 | Outpatient (CLI) | payer OTHER ==
[~2018-12-03] MED LIST changes: -AVPAK AZITHROM250 MG PO; -Ipratropium Brom3 ML INH; -MUCINEX1200 M1 PO; -PREDNISONE20 M1 PO; -TESSALON PERLE100 MG PO
== END | disposition home or self-care (01) ==
LOC: RESCLI 01:50
DX: I13.0 Hypertensive heart and chronic kidney disease with heart failure and stage 1 through stage 4 chronic kidney disease, or unspecified chronic kidney disease (principal); E11.22 Type 2 diabetes mellitus with diabetic chronic kidney disease; E11.65 Type 2 diabetes mellitus with hyperglycemia; N18.4 Chronic kidney disease, stage 4 (severe); I50.22 Chronic systolic (congestive) heart failure; J44.9 Chronic obstructive pulmonary disease, unspecified; G47.30 Sleep apnea, unspecified; J30.2 Other seasonal allergic rhinitis; I95.9 Hypotension, unspecified; I25.10 Atherosclerotic heart disease of native coronary artery without angina pectoris; E66.01 Morbid (severe) obesity due to excess calories; G25.81 Restless legs syndrome; Z79.82 Long term (current) use of aspirin; Z79.899 Other long term (current) drug therapy; Z88.2 Allergy status to sulfonamides; Z87.891 Personal history of nicotine dependence

== ENCOUNTER → 2019-02-18 | Outpatient (CLI) | payer OTHER ==
[~2019-02-18] MED LIST changes: +AVPAK AZITHROM250 MG PO; +Ipratropium Brom3 ML INH; +MUCINEX1200 M1 PO; +PREDNISONE20 M1 PO; +TESSALON PERLE100 MG PO
[2019-02-18 13:49] LABS: BASO % 0.3 % (0.0-1.0); EOS # 0.5 10*3/uL (0.0-0.4); EOS % 5.8 % (1.0-4.0); HEMATOCRIT 34.5 % (37.0-47.0); HEMOGLOBIN 10.9 g/dl (12.0-16.0); LYMPH # 1.5 10*3/uL (1.3-4.4); LYMPH % 16.3 % (27.0-41.0); MEAN CELL VOLUME 85.8 fl (81.0-99.0); MEAN CORPUSCULAR HGB 27.1 pg (27.0-31.0); MEAN CORPUSCULAR HGB CONC 31.6 g/dl (33.0-37.0); MEAN PLATELET VOLUME 10.6 fl (9.6-12.3); MONO # 0.4 10*3/uL (0.1-1.0); MONO % 3.9 % (3.0-9.0); NEUT # 6.5 10*3/uL (2.3-7.9); NEUT % 73.3 % (47.0-73.0); PLATELET COUNT AUTOMATED 220 10*3/uL (130-400); RED BLOOD COUNT 4.02 10*6/uL (4.10-5.10); RED CELL DISTRI WIDTH 15.4 % (0-14.5); WHITE BLOOD COUNT 8.9 10*3/uL (4.8-10.8)
[2019-02-18 14:22] LABS: BILIRUBIN NEGATIVE (NEGATIVE); BLOOD 2+ (NEGATIVE); CLARITY CLEAR (CLEAR); COLOR YELLOW (YELLOW); GLUCOSE 1+ (NEGATIVE); KETONE NEGATIVE (NEGATIVE); LEUKO ESTERASE NEGATIVE (NEGATIVE); NITRITE NEGATIVE (NEGATIVE); PH 5.5 (5.0-9.0); SPECIFIC GRAVITY 1.015 (1.005-1.030); UROBILINOGEN 0.2 E.U./dl (0.2-1.0)
[2019-02-18 14:31] LABS: URINE CREATININE RANDOM 61.6 mg/dL
[2019-02-18 14:37] LABS: BACTERIA 2+
[2019-02-18 15:25] LABS: ALBUMIN 3.5 gm/dl (3.1-4.5); CREATININE 4.39 mg/dL (0.55-1.02); PHOSPHOROUS 4.5 mg/dL (2.5-4.9); POTASSIUM 4.1 mmol/L (3.5-5.1)
[2019-02-18 15:37] LABS: FERRITIN 39.5 ng/mL (10.0-291.0); VITAMIN D, 25-HYDROXY 28.4 ng/mL (30-100)
[2019-02-18 15:38] LABS: PTH INTACT 145.1 pg/mL (18.5-88.0)
== END | disposition home or self-care (01) ==
LOC: LAB 13:26
PROVIDERS: Internal Medicine Nephrology
DX: E11.22 Type 2 diabetes mellitus with diabetic chronic kidney disease (principal); E11.65 Type 2 diabetes mellitus with hyperglycemia; N18.4 Chronic kidney disease, stage 4 (severe); N25.81 Secondary hyperparathyroidism of renal origin; D63.1 Anemia in chronic kidney disease

== ENCOUNTER 2019-03-12 11:34 | Emergency (ER) | payer OTHER ==
[~2019-03-12] VITALS: Ht 154.9 cm; Wt 79.4 kg
--- NOTE | ~2019-03-12 | EKG ---
[place], [place] ELECTROCARDIOGRAM REPORT NAME: JENNIE KIRKLAND UNIT #: [id number] ROOM: DOCTOR: EPIPHANY DRAFT REPORT BIRTHDATE: [birth year] [facility] Test Date: 2019-03-12 Test Time: 11:37:52 Pat Name: JENNIE KIRKLAND Department: Room: Gender: F Refractory Specialist: : 1970 Requested By: BHANU BROWN Order Number: [id number] Reading MD: Sami Wilson MD Measurements Intervals [place] Rate: 77 P: 63 UT: 145 QRS: 27 QRSD: 94 T: 84 QT: 384 QTc: 435 Interpretive Statements Sinus rhythm Consider inferior infarct Anterior infarct, old Compared to ECG 10/06/2018 11:52:45 T-wave abnormality no longer present Possible ischemia no longer present Myocardial infarct finding still present Electronically Signed On 03-14-2019 9:29:51 PDT by Sami Wilson MD CM:EKGRPT:ELECTROCARDIOGRAM REPORT 1137 0929 BHANU LUU DRAFT REPORT BHANU BROWN M.D.
[~2019-03-12 11:34] MED LIST changes: -AVPAK AZITHROM250 MG PO; -Ipratropium Brom3 ML INH; -MUCINEX1200 M1 PO; -PREDNISONE20 M1 PO; -TESSALON PERLE100 MG PO
[2019-03-12 11:37] VITALS: BP 110/47
[2019-03-12 12:06] LABS: BASO % 0.2 % (0.0-1.0); EOS # 0.3 10*3/uL (0.0-0.4); EOS % 2.8 % (1.0-4.0); HEMOGLOBIN 9.3 g/dl (12.0-16.0); LYMPH # 0.6 10*3/uL (1.3-4.4); LYMPH % 6.9 % (27.0-41.0); MEAN CELL VOLUME 90.3 fl (81.0-99.0); MEAN CORPUSCULAR HGB CONC 32.1 g/dl (33.0-37.0); MEAN PLATELET VOLUME 10.7 fl (9.6-12.3); MONO # 0.5 10*3/uL (0.1-1.0); MONO % 5.7 % (3.0-9.0); NEUT # 7.8 10*3/uL (2.3-7.9); PLATELET COUNT AUTOMATED 152 10*3/uL (130-400); RED BLOOD COUNT 3.21 10*6/uL (4.10-5.10); RED CELL DISTRI WIDTH 14.9 % (0-14.5); WHITE BLOOD COUNT 9.3 10*3/uL (4.8-10.8)
[2019-03-12 12:18] LABS: ACT PARTIAL THROMBO TIME 27.5 SECONDS (20.8-31.5)
[2019-03-12 12:27] LABS: CREATININE 4.14 mg/dL (0.55-1.02); POTASSIUM 4.4 mmol/L (3.5-5.1); TOTAL PROTEIN 6.7 gm/dL (6.4-8.2)
[2019-03-12 12:28] LABS: TROPONIN I 0.016 ng/ml (<0.045)
[2019-03-12] MEDS ORDERED: PREDNISONE20 M1 PO (13:41)
[2019-03-12] MEDS ORDERED: VIBRAMYCIN100 MG PO (13:41)
[2019-03-12] MEDS ORDERED: Ipratropium Brom3 ML INH (13:41)
== END 2019-03-12 13:53 | disposition home or self-care (01) ==
LOC: ED 11:34
PROVIDERS: Emergency Medicine
DX: J44.1 Chronic obstructive pulmonary disease with (acute) exacerbation (principal); H92.09 Otalgia, unspecified ear; R11.10 Vomiting, unspecified; M54.2 Cervicalgia; E11.40 Type 2 diabetes mellitus with diabetic neuropathy, unspecified; E11.22 Type 2 diabetes mellitus with diabetic chronic kidney disease; I13.0 Hypertensive heart and chronic kidney disease with heart failure and stage 1 through stage 4 chronic kidney disease, or unspecified chronic kidney disease; N18.4 Chronic kidney disease, stage 4 (severe); I50.9 Heart failure, unspecified; I25.10 Atherosclerotic heart disease of native coronary artery without angina pectoris; K21.9 Gastro-esophageal reflux disease without esophagitis; E78.5 Hyperlipidemia, unspecified; E66.01 Morbid (severe) obesity due to excess calories; Z88.8 Allergy status to other drugs, medicaments and biological substances; Z88.2 Allergy status to sulfonamides; Z79.2 Long term (current) use of antibiotics; Z79.82 Long term (current) use of aspirin; Z79.4 Long term (current) use of insulin; Z79.899 Other long term (current) drug therapy; Z95.1 Presence of aortocoronary bypass graft

== ENCOUNTER 2019-04-07 16:50 | Inpatient (IN) | payer OTHER ==
[~2019-04-07] VITALS: Ht 154.9 cm; Wt 86.2 kg
--- NOTE | ~2019-04-07 | PR ---
[place], [place] PROGRESS NOTE NAME: JENNIE KIRKLAND UNIT #: [id number] ROOM: 406 DOCTOR: VELVET SAAVEDRA DO BIRTHDATE: [birth year] DOS: 04/10/2019 PULMONARY PROGRESS NOTE HISTORY OF PRESENT ILLNESS: A 48-year-old female resting in bed this morning during the time of my exam. The patient states that she feels much better today. The patient denies any other problems. The patient denies chest pain, fevers or chills. OBJECTIVE: VITAL SIGNS: Temperature 98.3, pulse 75, respiratory rate 20, blood pressure is 106/42, pulse ox 95% on 3 liters. HEENT: Normocephalic, atraumatic. Eyes nonicteric. NECK: Supple, nontender, trachea midline. CARDIOVASCULAR: S1, S2 audible. LUNGS: Decreased breath sounds bilaterally, minimal expiratory wheezes, greatly improved from the day prior, no crackles. ABDOMEN: Soft, obese, nontender. NEUROLOGIC: Cranial nerves 2-12 grossly intact. No focal neurologic deficits. SKIN: No lesions or rashes. MUSCULOSKELETAL: Without any acute deformities. LABORATORY DATA: CBC: White count 13, hemoglobin 9.2, hematocrit 29.1, platelet count 320. Sodium 135, potassium 4.6, chloride 104, carbon dioxide 20, BUN 66, creatinine 5.5, glucose 300, calcium 7.2, phosphorus 5, albumin ____. No new imaging was performed. IMPRESSION: 1. Chronic obstructive pulmonary disease with acute exacerbation. 2. Acute renal failure. 3. Normocytic anemia. 4. Hyperglycemia, type 2 diabetes, long-term use of insulin. 5. Essential hypertension. 6. Hyperlipidemia. 7. Polycystic kidney disease, chronic kidney disease stage 4-5. PLAN: Continue ceftriaxone, azithromycin, steroids 40 mg b.i.d. for another day. The patient has shown improvement from the day prior. Any additional changes will be based on progression of illness. Blayne Saavedra DO [place], [place] PROGRESS NOTE NAME: JENNIE KIRKLAND UNIT #: [id number] ROOM: 406 DOCTOR: VELVET SAAVEDRA DO BIRTHDATE: [birth year] KRISTOPHER REDDY MD CM:RHONDA [id number] VELVET SAAVEDRA DO 04/11/19 0133 interface
--- NOTE | ~2019-04-07 | PR ---
[place], [place] PROGRESS NOTE [id number] UNIT #: [id number] ROOM: 406 DOCTOR: BARRY HOLLEY MD,KRISTOPHER BIRTHDATE: [birth year] DOS: 04/11/2019 PULMONARY ADDENDUM NOTE SUBJECTIVE: The patient has been seen and examined, including [id number] encounter, history was confirmed. Physical examination performed. Labs were reviewed. The assessment and management was personally completed. Note done by the medical records tech was approved as well. The patient has been noted comfortable at this time noted with significant reduction in respiratory symptom in the last 24 hours with improvement in the cough, reduction in the shortness of breath and wheezing. PHYSICAL EXAMINATION: GENERAL: The patient was resting on the bed this morning of assessment. VITAL SIGNS: For the patient normal temperature, respiratory rate 16, heart rate 76, blood pressure 124/60. Pulse oxygen saturation recorded on 3 liters nasal cannula 95% saturation. HEENT: Examination shows head was atraumatic. Eyes nonicterus. NECK: Supple. CARDIOVASCULAR: S1, S2 audible. LUNGS: With mild expiratory wheezing, no crackles. ABDOMEN: Soft, nontender, bowel sounds present. EXTREMITIES: No acute change. IMPRESSION: Stable respiratory status was noted with progressive improvement in acute exacerbation of chronic obstructive pulmonary disease was noted. PLAN OF MANAGEMENT: No changes in the plan of care at this time. Continue current therapy as in progress with discharge planning could be started on oral medication, such as tapering prednisone and the antibiotics. Outpatient followup recommended post-discharge in the next couple of days. KRISTOPHER REDDY MD CM:PNTRANS [id number] KRISTOPHER HOLLEY MD 04/12/19 0650 interface
--- NOTE | ~2019-04-07 | PR ---
[place], [place] PROGRESS NOTE NAME: JENNIE KIRKLAND UNIT #: [id number] ROOM: 406 DOCTOR: VELVET SAAVEDRA DO BIRTHDATE: [birth year] DOS: 04/11/2019 PULMONARY PROGRESS NOTE HISTORY OF PRESENT ILLNESS: A 48-year-old female resting in bed this morning at the time of exam. The patient states that she feels much better today. The patient states that she thinks she could go home today. The patient denies chest pain, shortness of breath, fevers or chills. OBJECTIVE: VITAL SIGNS: The patient's temperature is 98, pulse is 79, respirations 20, blood pressure 121/58, 98% on room air. HEENT: Normocephalic, atraumatic. Eyes nonicteric. NECK: Supple, nontender, trachea is midline. CARDIOVASCULAR: S1, S2 audible. LUNGS: Decreased breath sounds bilaterally with minimal expiratory wheezes, improved from the day prior, no crackles. ABDOMEN: Soft, nontender, obese. NEUROLOGIC: Cranial nerves 2-12 grossly intact. No focal neurologic deficits. SKIN: No lesions or rashes. MUSCULOSKELETAL: Without acute deformities. LABORATORY DATA: Of note, the patient's white count raised to 13.0, likely steroid induced. IMPRESSION: 1. Acute exacerbation of chronic obstructive pulmonary disease. 2. Acute renal failure. 3. Normocytic anemia. 4. Hyperglycemia, type 2 diabetes, longstanding use of insulin. 5. Essential hypertension. 6. Hyperlipidemia. 7. Polycystic kidney disease, chronic kidney disease stage 4-5. PLAN: Continue current treatment. The patient could be discharged home on azithromycin and steroids from pulmonology standpoint. The patient is to follow up with Dr. Reddy's office within a month. Blayne Saavedra DO [place], [place] PROGRESS NOTE NAME: JENNIE KIRKLAND UNIT #: [id number] ROOM: 406 DOCTOR: VELVET SAAVEDRA DO BIRTHDATE: [birth year] KRISTOPHER REDDY MD CM:RHONDA [id number] VELVET SAAVEDRA 04/11/19 1841 interface
--- NOTE | ~2019-04-07 | CON ---
[place], [place] REPORT OF CONSULTATION NAME: JENNIE KIRKLAND UNIT #: [id number] ROOM: 406 DOCTOR: VELVET SAAVEDRA DO BIRTHDATE: [birth year] DOS: 04/09/2019 PULMONARY CONSULTATION NOTE CHIEF COMPLAINT: Chronic obstructive pulmonary disease exacerbation. Requested by the hospitalist service. HISTORY OF PRESENT ILLNESS: A 48-year-old female with a history of COPD, presents for not feeling well for the past 2 weeks. The patient states that she has a history of COPD and feels like her breathing has just been getting worse for the last 2 weeks. The patient states she has a productive cough with thick sputum. The patient is requiring oxygen supplementation, which is normal for her. The patient denies chest pain or fevers or chills this morning. PAST MEDICAL HISTORY: 1. Coronary artery disease. 2. Congestive heart failure. 3. Chronic kidney disease stage 4. 4. Polycystic kidney disease. 5. Chronic obstructive pulmonary disease. 6. Essential hypertension. 7. Gastroesophageal reflux disease. 8. Hyperlipidemia. 9. Obstructive sleep apnea. 10. Type 2 diabetes with long-term current use of insulin. 11. Vitamin D deficiency. PAST SURGICAL HISTORY: 1. AV fistula placed for potential hemodialysis in the future. 2. History of cardiac catheterization. 3. History of coronary artery bypass graft x 4 vessels. 4. History of cholecystectomy. 5. Previous . SOCIAL HISTORY: The patient does not drink or use illicit drugs and is a former smoker, quit about 6 years ago. FAMILY HISTORY: The mother has a history of PCOS, coronary artery disease, and CKD. She is currently on dialysis. Her age is 77 years old. Father has a history of renal cancer. He at the age of 87 from a CVA. ALLERGIES: IBUPROFEN, BACTRIM. HOME MEDICATIONS: Albuterol, amlodipine, aspirin, atorvastatin, Coreg, vitamin D, ferrous sulfate, furosemide, insulin glargine, insulin lispro, DuoNeb, isosorbide dinitrate, Claritin, pantoprazole, Requip and sodium bicarbonate. REVIEW OF SYSTEMS: GENERAL: The patient denies fever, chills, weight loss or weight gain. [place], [place] REPORT OF CONSULTATION NAME: JENNIE KIRKLAND [facility] UNIT #: [id number] ROOM: 406 DOCTOR: CIARRA MARIANATIFF BIRTHDATE: [birth year] HEENT: The patient denies vision changes, nasal discharge, ear pain, eye pain, or mouth pain. CARDIOVASCULAR: The patient denies chest pain, palpitations, lower extremity edema, or diaphoresis. RESPIRATORY: The patient reports shortness of breath, cough, wheezing, thick sputum production, dyspnea on exertion. The patient denies hemoptysis. ABDOMEN: The patient denies abdominal pain, nausea, vomiting, diarrhea, constipation or loss of appetite. GENITOURINARY: The patient denies dysuria, hematuria, increased frequency or urgency. NEUROLOGIC: The patient denies lightheadedness, dizziness or confusion. PSYCHIATRIC: The patient denies depression, anxiety or substance abuse. ENDOCRINE: The patient denies polydipsia, heat intolerance, or cold intolerance. SKIN: The patient denies any type of new rashes. PHYSICAL EXAMINATION: VITAL SIGNS: Temperature 98.3, pulse 62, respiratory rate 20, blood pressure 110/55, patient is 93% on 3 liters by nasal cannula. HEENT: Normocephalic, atraumatic. Eyes nonicteric. NECK: Supple, nontender, trachea midline. CARDIOVASCULAR: S1, S2 audible. LUNGS: Decreased breath sounds bilaterally with expiratory wheezes, no crackles. ABDOMEN: Soft, obese, nontender. CRANIAL NERVOUS SYSTEM: Cranial nerves 2-12 grossly intact. NEUROLOGIC: No focal neurologic deficits. SKIN: No lesions or rashes on visible skin. MUSCULOSKELETAL: Without acute deformities. LABORATORY DATA: From today shows a white count 11, hemoglobin 8.7, hematocrit 27.9, platelet count 200. Chemistries: Sodium 136, potassium 4.7, chloride 104, carbon dioxide 19, BUN 52, creatinine 5.24, glucose is 309 this morning, calcium 7.3, phosphorus is 5.1 with albumin of 2.9. MICROBIOLOGY: Blood cultures were taken and are pending at this time. IMAGING: Chest x-ray was performed. The patient was admitted with no pathologic process. IMPRESSION: 1. Chronic obstructive pulmonary disease with acute exacerbation. 2. Acute renal failure. 3. Normocytic anemia. 4. Hyperglycemia, type 2 diabetes, long-term use of insulin. 5. Essential hypertension. 6. Hyperlipidemia. PLAN: To continue ceftriaxone and azithromycin and steroids 40 mg b.i.d. for today. Any other changes will be based on progression of illness. [place], [place] REPORT OF CONSULTATION NAME: JENNIE KIRKLAND UNIT #: [id number] ROOM: 406 DOCTOR: VELVET SAAVEDRA DO BIRTHDATE: [birth year] Thank you for allowing us to participate in her care. Blayne Saavedra DO KRISTOPHER REDDY MD CM:CONSTR:REPORT OF CONSULTATION 0829 04/10/19 0309 interface
--- NOTE | ~2019-04-07 | CON ---
[place], [place] REPORT OF CONSULTATION NAME: JENNIE KIRKLAND [facility] #: [id number] UNIT #: [id number] ROOM: 406 DOCTOR: BARRY HOLLEY MD,KRISTOPHER BIRTHDATE: [birth year] DOS: 04/09/2019 PULMONARY CONSULTATION EVALUATION AND MANAGEMENT The patient is independently seen and examined, including [id number] encounter, history was confirmed. Physical examination performed. The lab for this visit was personally reviewed. Radiologic study was also reviewed. Assessment and management of the patient's today visit personally completed. Note done by the medical billing coder was approved as well. HISTORY OF PRESENT ILLNESS: This is a 48-year-old white female patient with history of chronic obstructive pulmonary disease with cardiomyopathy and congestive heart failure, presented to the hospital as she has been noted with increased respiratory symptoms with insomnia with symptoms of shortness of breath as well. The shortness of breath has been ongoing for the past couple of weeks. She was also noted symptoms of cough, which is noted nonproductive with wheezing as well. She denies symptoms of chest pain. She was seen in the Emergency Room 1 week ago as well and was prescribed the antibiotic without any relief of symptoms. The patient presented to the hospital and noted pulse ox saturation at 89%. The chest x-ray was done as well. She has been currently hospitalized and treatment currently ongoing, acute exacerbation of chronic obstructive pulmonary disease. REVIEW OF SYSTEMS: CONSTITUTIONAL: Fatigue and tiredness reported. Denies symptoms of fever or chills. EYES: Denies burning, redness, or tenderness. EARS, NOSE, THROAT SYMPTOMS: Denies sore throat, hoarseness, otalgia, postnasal drainage or epistaxis. CARDIOVASCULAR: Denies angina pain, edema, pain of the lower extremities. GASTROINTESTINAL: Denies dysphagia, nausea, vomiting, diarrhea, abdominal pain, hematemesis, melena, or hematochezia. SKIN: Denies lesions or rashes. CENTRAL NERVOUS SYSTEM: No dizziness, headache, diplopia, syncopal episodes. Remaining systems were reviewed. They were noted all negative. PAST MEDICAL HISTORY: Known with: 1. Longstanding history of chronic obstructive pulmonary disease. 2. Uncomplicated severe persistent bronchial asthma. 3. Essential hypertension. 4. Type 2 diabetes mellitus. 5. History of polycystic kidney disease. 6. Chronic kidney disease stage 4. 7. History of gastroesophageal reflux. 8. Obstructive sleep apnea disorder as well treated with CPAP 12 cm water. 9. Restless leg syndrome. 10. Permanent atrial fibrillation. 11. Hyperlipidemia. 12. Cardiomyopathy. The left ventricle, ejection fraction 35%. [place], [place] REPORT OF CONSULTATION NAME: JENNIE KIRKLAND UNIT #: [id number] ROOM: 406 DOCTOR: KRISTOPHER RAMIREZ MD BIRTHDATE: [birth year] 13. History of coronary artery disease. PAST SURGICAL HISTORY: 1. The patient's AV fistula formation of the upper extremity for possible dialysis. 2. Coronary artery bypass grafting 4 vessels. 3. Cholecystectomy. 4. . SOCIAL HISTORY: The patient lives at home. She has 2 children. Denies history of alcohol or illicit drug use. Tobacco use was noted from age of [age] years old, a pack of cigarettes per day until 2011. FAMILY HISTORY: Reported for polycystic kidney disease, diabetes mellitus, hypertension, sleep apnea disorder. CURRENT MEDICATIONS: Administered on this hospitalization were noted. Requip, Lipitor, sliding insulin coverage, Imdur, loratadine, Coreg, aspirin, Norvasc, ferrous sulfate, Protonix, Solu-Medrol 40 mg every 8 hours, sodium bicarbonate tablet, Mucinex, DuoNeb, azithromycin, Rocephin, and some other p.r.n. meds. DRUG ALLERGY HISTORY: Reported as allergy: 1. MOTRIN. She is not allergic to, but does not want to take it because of chronic kidney disease. 2. BACTRIM. PHYSICAL EXAMINATION: GENERAL: This is a 48-year-old white female patient currently lying in the bed without any acute distress. Height of 5 feet 1 inch, weight of 173 pounds, BMI of 32. VITAL SIGNS: For the patient, which has been recorded since admission has a normal temperature. The respiratory rate ranged between 17-20. Heart rate ranging between 73-80. The blood pressure 127/64-108/50. The pulse ox saturation recorded as 95% saturation on 3 liters nasal cannula. HEENT: Examination shows head was atraumatic. Eyes nonicterus. NECK: Supple and obese. CARDIOVASCULAR: S1, S2 is audible. LUNGS: Diffuse bilateral expiratory wheezing without any crackles. ABDOMEN: Soft. Moderate obesity. Bowel sounds present. EXTREMITIES: Without acute edema. MUSCULOSKELETAL: Without acute deformities. CENTRAL NERVOUS SYSTEM: The patient's cranial nerves 2-12 intact. LABORATORY DATA: The PT, PTT that was done on admission 04/07/2019 was noted as normal results. CBC of 04/07/2019, hemoglobin 9.7, hematocrit 30.1, WBC count normal, platelet count was normal. CMP was noted with BUN 44, creatinine 5.11. Glucose 206. CO2 was 19. Magnesium 1.4. BMP that was done this morning, BUN 50, creatinine 5.32, glucose 429. CO2 was 18. CBC this morning, WBC count normal at 9.7, platelet count was normal. Blood culture, which were taken 04/07/2019 does not show any bacterial growth. CBC this morning, WBC count of [place], [place] REPORT OF CONSULTATION NAME: JENNIE KIRKLAND UNIT #: [id number] ROOM: [facility] DOCTOR: BARR[facility] HOLLEY [facility] BIRTHDATE: [birth year] 11.8, hemoglobin 8.7, platelet count were normal. Blood culture was reported no bacterial growth on 04/07/2019. BMP this morning, glucose 309, BUN 52, creatinine 5.24. CO2 was 19. Chest x-ray, which was done in the Emergency Room on 04/07/2019 was reviewed, noted free of any acute abnormality. Midline sternotomy changes were noted. IMPRESSION: 1. The patient who has been currently admitted to the hospital noted with recurrence of acute exacerbation of chronic obstructive pulmonary disease and acute bronchial asthma combination. 2. History of chronic kidney disease stage 4 was also noted consider possible hemodialysis. 3. The patient with cardiomyopathy, congestive heart failure without any evidence of acute decompensation of the congestive heart failure with systolic dysfunction. 4. Chronic obesity multiple other medical illnesses as stated in my past history component. PLAN OF TREATMENT: Agree with the current dose of corticosteroids and bronchodilators administration, oxygen supplementation as well as already ordered for this patient to be continued. Sputum for Gram stain culture will be collected if the patient expectorates sputum. Other therapy, plan and management, additional treatment changes will be made for the patient based on the progression of the illness. Thanks for allowing me to participate in the care of this patient. KRISTOPHER REDDY MD CM:CONSTR:REPORT OF CONSULTATION 1753 04/24/19 1200 interface
--- NOTE | ~2019-04-07 | PR ---
[place], [place] PROGRESS NOTE NAME: JENNIE KIRKLAND [facility] #: [id number] UNIT #: [id number] ROOM: 406 DOCTOR: BARRY HOLLEY MD,KRISTOPHER BIRTHDATE: [birth year] DOS: 04/10/2019 SUBJECTIVE: The patient is seen and examined independently in [id number] encounter. History was confirmed. Physical examination was performed. The labs were reviewed. Note done by the medical research assistant was approved as well. The patient has been noted comfortable at this time. This morning, she has change in reduction of the respiratory symptoms. Gradual progression of symptoms of chest pain, fever, chills stated by the patient. OBJECTIVE: VITAL SIGNS: The patient has normal temperature, respiratory rate of 18, heart rate 75, blood pressure of 160/42. Pulse oxygen saturation recorded as 95% saturation on 3 liters nasal cannula. HEENT: Examination shows head was atraumatic. Eyes nonicterus. NECK: Supple. CARDIOVASCULAR: S1, S2 audible. LUNGS: Significantly improved air entry with gradual reduction in wheezing, mild expiratory wheezing present bilaterally. ABDOMEN: Soft, nontender. Bowel sounds present. EXTREMITIES: No acute change. LABORATORY DATA: BMP of the patient, BUN 66, creatinine 5.54. WBC count 13.8, hemoglobin 9.2. IMPRESSION: The patient with resolving acute exacerbation of chronic obstructive pulmonary disease, gradually and progressively. Acute chronic kidney disease stage 3. PLAN OF MANAGEMENT: Decreasing Solu-Medrol dose to 40 mg b.i.d. dosing. Discharge planning could be started. The patient would be noted stable from pulmonary standpoint. Other therapy, plan of management, additional treatment changes will be ordered based on the progression of the illness. KRISTOPHER REDDY MD CM:PNKAJAL [id number] KRISTOPHER HOLLEY MD 04/11/19 0050 interface
--- NOTE | ~2019-04-07 | EKG ---
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[id number] Requested By: ALBERTINA ASTORGA DNP Order Number: [id number] Reading MD: Suresh Stokes Measurements Intervals [place] Rate: 75 P: 61 MO: 179 QRS: 32 QRSD: 87 T: 142 QT: 464 QTc: 519 Interpretive Statements Sinus rhythm Probable anteroseptal infarct, recent Lateral leads are also involved Prolonged QT interval Compared to ECG 03/12/2019 11:37:52 Prolonged QT interval now present Myocardial infarct finding still present Electronically Signed On 04-09-2019 13:35:31 PDT by Suresh Stokes CM:EKGRPT:ELECTROCARDIOGRAM REPORT [id number] ALBERTINA ASTORGA DNP EPIPHANY DRAFT REPORT ALBERTINA ASTORGA DNP
[~2019-04-07 16:50] MED LIST changes: +Ipratropium Brom3 ML INH; +PREDNISONE20 M1 PO
[2019-04-07 16:52] VITALS: BP 129/55
[2019-04-07 17:34] LABS: BASO % 0.4 % (0.0-1.0); EOS # 0.5 10*3/uL (0.0-0.4); EOS % 9.2 % (1.0-4.0); HEMATOCRIT 30.1 % (37.0-47.0); HEMOGLOBIN 9.7 g/dl (12.0-16.0); LYMPH # 1.2 10*3/uL (1.3-4.4); LYMPH % 21.3 % (27.0-41.0); MEAN CELL VOLUME 89.3 fl (81.0-99.0); MEAN CORPUSCULAR HGB 28.8 pg (27.0-31.0); MEAN CORPUSCULAR HGB CONC 32.2 g/dl (33.0-37.0); MEAN PLATELET VOLUME 11.6 fl (9.6-12.3); MONO # 0.5 10*3/uL (0.1-1.0); MONO % 9.4 % (3.0-9.0); NEUT # 3.2 10*3/uL (2.3-7.9); NEUT % 59.3 % (47.0-73.0); PLATELET COUNT AUTOMATED 204 10*3/uL (130-400); RED BLOOD COUNT 3.37 10*6/uL (4.10-5.10); RED CELL DISTRI WIDTH 13.9 % (0-14.5); WHITE BLOOD COUNT 5.4 10*3/uL (4.8-10.8)
[2019-04-07 18:00] VITALS: BP 122/64
[2019-04-07 18:06] LABS: ACT PARTIAL THROMBO TIME 25.9 SECONDS (20.0-32.1); INTERNATIONAL NORM RATIO 0.9 (2.0-3.5)
[2019-04-07 18:10] LABS: ALBUMIN 2.9 gm/dl (3.1-4.5); ALKALINE PHOSPHATASE 92 U/L (45-117); BUN 44 mg/dl (7-24); CHLORIDE 111 mmol/L (98-107); CREATININE 5.11 mg/dL (0.55-1.02); LIPASE 161 U/L (73-393); POTASSIUM 4.4 mmol/L (3.5-5.1); SGOT/AST 11 IU/L (3-35); SGPT/ALT 16 U/L (12-78); SODIUM 141 mmol/L (136-145); TOTAL PROTEIN 6.9 gm/dL (6.4-8.2); TROPONIN I < 0.015 ng/ml (<0.045)
[2019-04-07 20:00] VITALS: BP 119/49
[2019-04-07 20:15] VITALS: BP 119/49
--- NOTE | 2019-04-07 20:15 | NUR ---
A 48, admitted to , under the services of YUE Moody DO with a diagnosis of COPD EXACERBATION. Chief complaint is SOB. Patient arrived via stretcher from ER. Monitor applied. Initial assessment completed. Vital signs taken and recorded. YUE MOODY DO notified of admission to the unit. Orders received. See assessment for past medical history, medications and allergies. Patient and/or family oriented to unit. [facility] visitation policy reviewed. Clothing/patient valuable form completed. JOSELO RUSSO
--- NOTE | 2019-04-07 21:00 | NUR ---
SAMEugene KIRKLAND () [phone] LESLI VILCHIS (SISTER) [phone]
[2019-04-07] MEDS ORDERED: HUMALOG100 UNIT/2 SQ (21:12)
--- NOTE | 2019-04-07 21:15 | NUR ---
MED REC UPDATED PER PT RECALL. PT ALERT & ORIENTED X3.
--- NOTE | 2019-04-07 21:48 | NUR ---
HERE TO SEE PATIENT. NEW ADMISSION ORDERS TO FOLLOW.
[2019-04-08] VITALS: BP 116/49
[2019-04-08 06:34] LABS: HEMATOCRIT 30.8 % (37.0-47.0); HEMOGLOBIN 9.7 g/dl (12.0-16.0); MEAN CORPUSCULAR HGB CONC 31.5 g/dl (33.0-37.0); MEAN PLATELET VOLUME 11.1 fl (9.6-12.3); PLATELET COUNT AUTOMATED 185 10*3/uL (130-400); RED BLOOD COUNT 3.46 10*6/uL (4.10-5.10); RED CELL DISTRI WIDTH 13.4 % (0-14.5); WHITE BLOOD COUNT 5.3 10*3/uL (4.8-10.8)
[2019-04-08 06:53] LABS: CREATININE 5.32 mg/dL (0.55-1.02); PHOSPHOROUS 5.5 mg/dL (2.5-4.9); POTASSIUM 4.9 mmol/L (3.5-5.1)
--- NOTE | 2019-04-08 07:19 | NUR ---
'S ANSWERING SERVICE CALLED REGARDING CONSULT. INFORMATION LEFT WITH VIRTUAL ASSISTANT REN.
[2019-04-08 08:00] VITALS: BP 109/44
[2019-04-08 08:04] LABS: TOTAL CELLS COUNTED 100 #CELLS
[2019-04-08 08:06] LABS: PLATELET SUFFICIENCY NORMAL (NORMAL)
[2019-04-08 08:07] LABS: POLYCHROMASIA SLIGHT
--- NOTE | 2019-04-08 08:13 | NUR ---
NOTIFIED OF CONSULT.
--- NOTE | 2019-04-08 09:05 | NUR ---
RETURNED PHONE CALL. NOTIFIED OF CONSULT. DISCUSSED ADMITTING DX, PERTINENT LABS, MEDICATIONS, VITALS, AND CURRENT TREATMENT ORDERED. STATES THEY WILL SEE PATIENT LATER TODAY.
[2019-04-08 12:00] VITALS: BP 121/55
--- NOTE | 2019-04-08 12:13 | NUR ---
DOCTOR JOHN NOTIFIED OF PATIENTS STAT GLUCOSE OF 523, ORDERED TO COVER PER SLIDING SCALE AND CHECK BLOOD GLUCOSE IN 2 HOURS AND COVER AGAIN.
--- NOTE | 2019-04-08 12:15 | NUR ---
PER DR LOPEZ COVER BS OF 523 WITH 14 UNITS. RECHECK IN 2HRS AND COVER AGAIN.
--- NOTE | 2019-04-08 12:30 | NUR ---
AT 1135 POSTRUAL DRAINAGE VIA PERCUSSOR DONE TO ALL LOBES FLUTTER VALVE INSTRUCTED WIRE DRAWER COUGH PT TOLERATED POSTRUAL DRAINAGE PT INSTRUCTED TO USE FLUTTER Q2 HOURS PT ABLE TO USE ON OWN
--- NOTE | 2019-04-08 15:40 | NUR ---
case managment visits with patient, patient states she lives at home with family, she is independent in adls and ambulation, has home oxygen and portable tanks. patient states she will be going home when able and denies any home needs
[2019-04-08 16:00] VITALS: BP 127/64
[2019-04-08 20:00] VITALS: BP 132/59
[2019-04-09] VITALS: BP 110/55
[2019-04-09 06:55] LABS: HEMATOCRIT 27.9 % (37.0-47.0); HEMOGLOBIN 8.7 g/dl (12.0-16.0); MEAN CELL VOLUME 89.1 fl (81.0-99.0); MEAN CORPUSCULAR HGB 27.8 pg (27.0-31.0); MEAN CORPUSCULAR HGB CONC 31.2 g/dl (33.0-37.0); MEAN PLATELET VOLUME 11.4 fl (9.6-12.3); PLATELET COUNT AUTOMATED 200 10*3/uL (130-400); RED BLOOD COUNT 3.13 10*6/uL (4.10-5.10); RED CELL DISTRI WIDTH 13.4 % (0-14.5)
[2019-04-09 06:56] LABS: ALBUMIN 2.9 gm/dl (3.1-4.5); CREATININE 5.24 mg/dL (0.55-1.02); PHOSPHOROUS 5.1 mg/dL (2.5-4.9); POTASSIUM 4.7 mmol/L (3.5-5.1)
[2019-04-09 08:00] VITALS: BP 108/50
[2019-04-09 08:19] LABS: PLATELET SUFFICIENCY NORMAL (NORMAL); SCHISTOCYTES FEW; TOTAL CELLS COUNTED 100 #CELLS
--- NOTE | 2019-04-09 09:00 | NUR ---
case management visits with patient, patient states she will be going home when able and denies any home needs
[2019-04-09 12:00] VITALS: BP 106/53
[2019-04-09 16:00] VITALS: BP 103/37
--- NOTE | 2019-04-09 19:00 | NUR ---
PT IS AWAKE AND SITTING UP IN BED DOING A CROSSWORD PUZZLE. THERE ARE NO OVERT SIGNS OF DISTRESS NOTED. RESPERATIONS ARE NONLABORED WITH A RATE OF 20. SHE IS UTILIZING 3L O2 VIA NC. PATIENT STATES THAT SHE IS BEGINNING TO FEEL BETTER. CALL LIGHT WITHIN REACH, WILL CONTINUE TO MONITOR.
--- NOTE | 2019-04-09 19:15 | NUR ---
24 hr chart check complete.
[2019-04-09 20:00] VITALS: BP 131/52
[2019-04-10] VITALS: BP 106/42
[2019-04-10 06:15] LABS: HEMATOCRIT 29.1 % (37.0-47.0); HEMOGLOBIN 9.2 g/dl (12.0-16.0); MEAN CELL VOLUME 88.4 fl (81.0-99.0); MEAN CORPUSCULAR HGB CONC 31.6 g/dl (33.0-37.0); MEAN PLATELET VOLUME 11.3 fl (9.6-12.3); PLATELET COUNT AUTOMATED 220 10*3/uL (130-400); RED BLOOD COUNT 3.29 10*6/uL (4.10-5.10); RED CELL DISTRI WIDTH 13.3 % (0-14.5)
[2019-04-10 06:33] LABS: ALBUMIN 2.8 gm/dl (3.1-4.5); CREATININE 5.54 mg/dL (0.55-1.02); POTASSIUM 4.6 mmol/L (3.5-5.1)
[2019-04-10 07:20] LABS: BURR CELLS FEW; PLATELET SUFFICIENCY NORMAL (NORMAL); TOTAL CELLS COUNTED 100 #CELLS
[2019-04-10 08:55] VITALS: BP 138/68
--- NOTE | 2019-04-10 09:00 | NUR ---
case management visits with patient, patient states she will be going home when able and denies any home needs, case management will follow
[2019-04-10 12:00] VITALS: BP 135/82
--- NOTE | 2019-04-10 13:01 | NUR ---
PATIENT WAS TESTED TO SEE IF THEIR PRESCRIBED DELIVERED OXYGEN FOR HOME USE IS SUFFICIENT TO THEIR NEEDS. PATIENT IS ORDER 2 L NASAL CANNULA CONTIEOUS FOR AT HOME. IN THE PATIENT CURRENT STATE, HER NEEDS ARE 3L NASAL CANNULA AT REST AND 4L NASAL CANNULA WITH ACTIVITY. AT REST ON ROOM AIR SHE WAS HEART RATE-77, SPO2-83%, BLOOD PRESSURE-132/62. DURING AMBULATION I TRIED 2LNC-SPO2:88/90%, 3LNC-SPO2:90%, AND 4LNC-SPO2:92-93%.
[2019-04-10 16:00] VITALS: BP 125/58
--- NOTE | 2019-04-10 19:00 | NUR ---
PT IS AWAKE AND SITTING UP IN BED WHILE TALKING ON THE PHONE. NO S/S OF DISTRESS NOTED. RESPS ARE EASY AND NONLABORED. 2L O2 NC CURRENTLY IN USE. BED LOW, CALL LIGHT WITHIN REACH, WILL CONTINUE TO MONITOR.
[2019-04-10 20:00] VITALS: BP 156/64
--- NOTE | 2019-04-10 23:30 | NUR ---
DR HOUSTON CALLED REGARDING PT'S REQUEST FOR CPAP AT NIGHT. NO NEW ORDERS.
[2019-04-11] VITALS: BP 121/58
--- NOTE | 2019-04-11 07:20 | NUR ---
BEDSIDE REPORT RECIEVED INTRODUCED SELF TO PATIENT, UPDATED WHITE BOARD, NO CONCERNS VOICED AT THIS TIME.
--- NOTE | 2019-04-11 07:43 | NUR ---
24 HR chart check completed.
[2019-04-11 08:00] VITALS: BP 108/62; BP 124/60
--- NOTE | 2019-04-11 09:00 | NUR ---
case management visits with patient, patient states she will be going home when able and denies any home needs
[2019-04-11] MEDS ORDERED: TESSALON PERLE100 MG PO (09:07)
[2019-04-11] MEDS ORDERED: MUCINEX1200 M1 PO (09:07)
[2019-04-11] MEDS ORDERED: PREDNISONE10 MG PO (09:07)
[2019-04-11] MEDS ORDERED: AVPAK AZITHROM250 MG PO (09:07)
--- NOTE | 2019-04-11 12:03 | NUR ---
Discharge instructions reviewed with patient/family. Patient receptive and verbalizes understanding. Follow-up care arranged. reinforced date and time of follow up appointment. Written instructions given to patient/family. Offered patient w/c, patient declined. GERRI BETANCOURT
--- NOTE | 2019-04-11 12:42 | NUR ---
Discharge instructions reviewed with patient/family. Patient receptive and verbalizes understanding. Follow-up care arranged. Written instructions given to patient/family. OFFERED W/C, PATIENT DECLINED. GERRI BETANCOURT
== END 2019-04-11 12:03 | disposition home or self-care (01) | DRG 190 ==
LOC: ED 16:50 → EDHOLD 19:02 → 4E 19:02
PROVIDERS: Internal Medicine; Nurse Practitioner Family; Student in an Organized Health Care Education/Training Program; ADMIT Internal Medicine
DX: J44.1 Chronic obstructive pulmonary disease with (acute) exacerbation (principal); N17.1 Acute kidney failure with acute cortical necrosis; E44.0 Moderate protein-calorie malnutrition; E87.2 Acidosis; I13.2 Hypertensive heart and chronic kidney disease with heart failure and with stage 5 chronic kidney disease, or end stage renal disease; I42.9 Cardiomyopathy, unspecified; I50.20 Unspecified systolic (congestive) heart failure; J45.51 Severe persistent asthma with (acute) exacerbation; N18.4 Chronic kidney disease, stage 4 (severe); E87.8 Other disorders of electrolyte and fluid balance, not elsewhere classified; E83.51 Hypocalcemia; G47.00 Insomnia, unspecified; I48.2 Chronic atrial fibrillation; D64.9 Anemia, unspecified; E11.65 Type 2 diabetes mellitus with hyperglycemia; E83.42 Hypomagnesemia; K21.9 Gastro-esophageal reflux disease without esophagitis; I25.10 Atherosclerotic heart disease of native coronary artery without angina pectoris; E11.40 Type 2 diabetes mellitus with diabetic neuropathy, unspecified; E83.41 Hypermagnesemia; G47.33 Obstructive sleep apnea (adult) (pediatric); G25.81 Restless legs syndrome; E66.01 Morbid (severe) obesity due to excess calories; E78.5 Hyperlipidemia, unspecified; E11.22 Type 2 diabetes mellitus with diabetic chronic kidney disease; N28.1 Cyst of kidney, acquired; Z95.1 Presence of aortocoronary bypass graft; I25.2 Old myocardial infarction; Z90.49 Acquired absence of other specified parts of digestive tract; Z88.6 Allergy status to analgesic agent; Z98.891 History of uterine scar from previous surgery; Z88.2 Allergy status to sulfonamides; Z87.891 Personal history of nicotine dependence; Z82.49 Family history of ischemic heart disease and other diseases of the circulatory system; Z84.1 Family history of disorders of kidney and ureter; Z82.3 Family history of stroke; Z83.3 Family history of diabetes mellitus; Z84.89 Family history of other specified conditions; Z79.82 Long term (current) use of aspirin; Z79.899 Other long term (current) drug therapy; Z79.4 Long term (current) use of insulin; Z80.51 Family history of malignant neoplasm of kidney; Z68.32 Body mass index [BMI] 32.0-32.9, adult

== ENCOUNTER → 2019-04-23 | Outpatient (CLI) | payer OTHER ==
[~2019-04-23] MED LIST changes: +AVPAK AZITHROM250 MG PO; +MUCINEX1200 M1 PO; +TESSALON PERLE100 MG PO
== END | disposition home or self-care (01) ==
LOC: RESCLI 00:32
DX: J44.1 Chronic obstructive pulmonary disease with (acute) exacerbation (principal); E83.42 Hypomagnesemia; N76.0 Acute vaginitis; I13.2 Hypertensive heart and chronic kidney disease with heart failure and with stage 5 chronic kidney disease, or end stage renal disease; E10.22 Type 1 diabetes mellitus with diabetic chronic kidney disease; I50.20 Unspecified systolic (congestive) heart failure; N18.5 Chronic kidney disease, stage 5; G47.33 Obstructive sleep apnea (adult) (pediatric); I25.10 Atherosclerotic heart disease of native coronary artery without angina pectoris; E78.5 Hyperlipidemia, unspecified; Q61.3 Polycystic kidney, unspecified; Z79.899 Other long term (current) drug therapy; Z87.891 Personal history of nicotine dependence

== ENCOUNTER → 2019-06-02 | Outpatient (CLI) | payer OTHER | END | disposition home or self-care (01) | LOC: RESCLI 00:40 | DX: I13.0 Hypertensive heart and chronic kidney disease with heart failure and stage 1 through stage 4 chronic kidney disease, or unspecified chronic kidney disease (principal); E11.22 Type 2 diabetes mellitus with diabetic chronic kidney disease; N18.4 Chronic kidney disease, stage 4 (severe); I50.22 Chronic systolic (congestive) heart failure; E11.65 Type 2 diabetes mellitus with hyperglycemia; E78.5 Hyperlipidemia, unspecified; Q61.3 Polycystic kidney, unspecified; I25.10 Atherosclerotic heart disease of native coronary artery without angina pectoris; J44.9 Chronic obstructive pulmonary disease, unspecified; E66.01 Morbid (severe) obesity due to excess calories; Z79.899 Other long term (current) drug therapy; Z88.8 Allergy status to other drugs, medicaments and biological substances ==

== ENCOUNTER → 2019-07-01 | Outpatient (CLI) | payer OTHER ==
[2019-07-01 12:37] LABS: BILIRUBIN NEGATIVE (NEGATIVE); BLOOD 2+ (NEGATIVE); CLARITY SL CLOUDY (CLEAR); COLOR YELLOW (YELLOW); GLUCOSE NEGATIVE (NEGATIVE); KETONE NEGATIVE (NEGATIVE); LEUKO ESTERASE TRACE (NEGATIVE); NITRITE NEGATIVE (NEGATIVE); SPECIFIC GRAVITY 1.025 (1.005-1.030); UROBILINOGEN 0.2 E.U./dl (0.2-1.0)
[2019-07-01 12:59] LABS: ALBUMIN 4.4 gm/dl (3.1-4.5); BACTERIA TRACE; EPITHELIAL CELLS 31-40; POTASSIUM 4.5 mmol/L (3.5-5.1)
[2019-07-01 13:03] LABS: CREATININE 5.11 mg/dL (0.55-1.02); PHOSPHOROUS 5.2 mg/dL (2.5-4.9)
== END | disposition home or self-care (01) ==
LOC: LAB 11:51
PROVIDERS: Internal Medicine Nephrology
DX: E11.65 Type 2 diabetes mellitus with hyperglycemia (principal); E11.22 Type 2 diabetes mellitus with diabetic chronic kidney disease; N18.5 Chronic kidney disease, stage 5; D63.1 Anemia in chronic kidney disease

== ENCOUNTER 2019-07-25 10:13 | Inpatient (IN) | payer OTHER ==
[~2019-07-25] VITALS: Ht 154.9 cm; Wt 84.0 kg
[2019-07-25 10:14] VITALS: BP 134/60
[2019-07-25 11:30] LABS: BASO % 0.3 % (0.0-1.0); EOS # 0.8 10*3/uL (0.0-0.4); EOS % 6.8 % (1.0-4.0); HEMATOCRIT 30.2 % (37.0-47.0); HEMOGLOBIN 9.2 g/dl (12.0-16.0); LYMPH # 1.2 10*3/uL (1.3-4.4); LYMPH % 10.9 % (27.0-41.0); MEAN CELL VOLUME 91.2 fl (81.0-99.0); MEAN CORPUSCULAR HGB 27.8 pg (27.0-31.0); MEAN CORPUSCULAR HGB CONC 30.5 g/dl (33.0-37.0); MEAN PLATELET VOLUME 10.4 fl (9.6-12.3); MONO # 0.5 10*3/uL (0.1-1.0); MONO % 4.3 % (3.0-9.0); NEUT # 8.6 10*3/uL (2.3-7.9); NEUT % 77.3 % (47.0-73.0); PLATELET COUNT AUTOMATED 212 10*3/uL (130-400); RED BLOOD COUNT 3.31 10*6/uL (4.10-5.10); RED CELL DISTRI WIDTH 14.6 % (0-14.5)
--- NOTE | 2019-07-25 11:40 | NUR ---
PT STATING IV TO RT AC "IS HURTING SOME" IV W/O REDNESS OR EDEMA NOTED PT CONTINUES TO C/O "BURNING" TO SITE AN IV DC'D.
[2019-07-25 11:41] LABS: ACT PARTIAL THROMBO TIME 27.5 SECONDS (20.0-32.1)
[2019-07-25 11:45] LABS: ALBUMIN 3.5 gm/dl (3.1-4.5); ALKALINE PHOSPHATASE 86 U/L (45-117); BUN 58 mg/dl (7-24); CHLORIDE 111 mmol/L (98-107); CREATININE 5.54 mg/dL (0.55-1.02); LIPASE 191 U/L (73-393); POTASSIUM 4.9 mmol/L (3.5-5.1); SGOT/AST 13 IU/L (3-35); SGPT/ALT 21 U/L (12-78); SODIUM 139 mmol/L (136-145); TOTAL PROTEIN 7.5 gm/dL (6.4-8.2)
[2019-07-25 11:50] LABS: TROPONIN I < 0.015 ng/ml (<0.045)
[2019-07-25 12:22] VITALS: BP 130/80
--- NOTE | 2019-07-25 12:37 | NUR ---
PT AWARE THAT REQUIRE A URINE FOR ANALYSIS,PT POSITIONED FOR COMFORT WITH CALL LIGHT WITHIN REACH AND SAFETY PRECAUTIONS INTACT.
[2019-07-25 13:13] LABS: BILIRUBIN NEGATIVE (NEGATIVE); BLOOD 2+ (NEGATIVE); CLARITY SL CLOUDY (CLEAR); COLOR YELLOW (YELLOW); GLUCOSE 1+ (NEGATIVE); KETONE NEGATIVE (NEGATIVE); LEUKO ESTERASE NEGATIVE (NEGATIVE); NITRITE NEGATIVE (NEGATIVE); UROBILINOGEN 0.2 E.U./dl (0.2-1.0)
[2019-07-25 13:31] LABS: BACTERIA 1+
--- NOTE | 2019-07-25 14:08 | NUR ---
PT W/O DISTRESS NOTED AND NO ADDITIONAL COMPLAINTS VOICED.
[2019-07-25 14:09] VITALS: BP 130/86
--- NOTE | 2019-07-25 18:04 | NUR ---
PT DENIES NEED FOR NICOTINE PATCH D/T PT "STOPPED SMOKING 7YRS AGO".
[2019-07-25 18:25] VITALS: BP 132/89
--- NOTE | 2019-07-25 19:59 | NUR ---
MEDICATION COMPLETED AT THE BEDSIDE WITH PATIENT AT THIS TIME
--- NOTE | 2019-07-25 20:25 | NUR ---
PT WITH LIGHTS TURNED DOWN,SAFETY PRECAUTIONS INTACT AND CALL LIGHT WITHIN REACH,WILL CONTINUE TO MONITOR.
--- NOTE | 2019-07-25 21:47 | NUR ---
ASSUMED CARE OF PATIENT AT THIS TIME. UPON ENTERING ROOM, IS RESTING WITH EYES CLOSED AND AROUSED EASILY TO NAME. UPDATED ON ROOM ASSIGNMENT AND DENIES ANY NEEDS. DOOR PULLED SHUT PER REQUEST. PER CALL WORKER PERSON, PATIENT CAN NOT GO TO ASSIGNED ROOM UNTIL FLOAT RN RETURNS TO FLOOR AT 2300.
--- NOTE | 2019-07-25 23:02 | NUR ---
NURSE TO NURSE TO ITALIA, RINA RN. SHE WILL TRANSPORT WHEN SHE TAKES ASSIGNMENT FROM FLOAT IN ED TO INPATIENT UNIT.
--- NOTE | 2019-07-25 23:35 | NUR ---
A 48 YEAR OLD FEMALE PATIENT, admitted to 5E, under the services of CARLOS Velazquez DO with a diagnosis of COPD EXCERBATION, ADDY,PNEUMONIA Chief complaint is SHORTNESS OF BREATH AFTER BEING WITHOUT HOME MEDICATIONS FOR 3 DAYS Patient arrived via WHEELCHAIR WITH RN from ER. Monitor applied. Initial assessment completed. Vital signs taken and recorded. See assessment for past medical history, medications and allergies. Patient and/or family oriented to unit. [facility] visitation policy reviewed. Clothing/patient valuable form completed. ITALIA MERLOS
[2019-07-26] VITALS: BP 108/58; BP 145/67
[2019-07-26 06:36] LABS: HEMATOCRIT 28.3 % (37.0-47.0); HEMOGLOBIN 8.7 g/dl (12.0-16.0); MEAN CELL VOLUME 88.7 fl (81.0-99.0); MEAN CORPUSCULAR HGB 27.3 pg (27.0-31.0); MEAN CORPUSCULAR HGB CONC 30.7 g/dl (33.0-37.0); MEAN PLATELET VOLUME 10.4 fl (9.6-12.3); PLATELET COUNT AUTOMATED 191 10*3/uL (130-400); RED BLOOD COUNT 3.19 10*6/uL (4.10-5.10); RED CELL DISTRI WIDTH 14.4 % (0-14.5); WHITE BLOOD COUNT 8.7 10*3/uL (4.8-10.8)
[2019-07-26 06:47] LABS: ALBUMIN 3.1 gm/dl (3.1-4.5); CREATININE 5.49 mg/dL (0.55-1.02); PHOSPHOROUS 5.5 mg/dL (2.5-4.9); POTASSIUM 5.1 mmol/L (3.5-5.1); TOTAL PROTEIN 7.2 gm/dL (6.4-8.2)
[2019-07-26 07:07] LABS: TOTAL CELLS COUNTED 100 #CELLS
[2019-07-26 07:08] LABS: BURR CELLS FEW; PLATELET SUFFICIENCY NORMAL (NORMAL)
[2019-07-26 08:00] VITALS: BP 150/54
--- NOTE | 2019-07-26 08:00 | NUR ---
PATIENT RESTING QUIETLY IN BED. NO DISTRESS NOTED. 02 IN USE VIA 4LNC. PATIENT WEARS 3L02 AT HOME. POX CURRENTLY 99% VIA 4LNC. O2 TURNED DOWN TO 3LNC. POX NOW 96-97% VIA 3LNC. LUNGS DIMINISHED WITH FAINT WHEEZE. DENIES ANY SOB AT REST. WILL CONTINUE TO MONITOR. VSS. CALL LIGHT WITHIN REACH.
[2019-07-26 12:00] VITALS: BP 124/59
--- NOTE | 2019-07-26 12:00 | NUR ---
BLOOD SUGAR 430. 22 UNITS OF INSULIN GIVEN PER SLIDING SCALE. WILL CONTINUE TO MONITOR. NO VOICED COMPLAINTS.
[2019-07-26 16:00] VITALS: BP 122/54
--- NOTE | 2019-07-26 16:55 | NUR ---
BSG 410. 22 UNITS OF INSULIN GIVEN PER S/S.
[2019-07-26 20:00] VITALS: BP 104/48; BP 114/56
[2019-07-27] VITALS: BP 108/58
[2019-07-27 06:36] LABS: CREATININE 5.64 mg/dL (0.55-1.02); POTASSIUM 5.3 mmol/L (3.5-5.1)
[2019-07-27 06:38] LABS: TOTAL PROTEIN 6.8 gm/dL (6.4-8.2)
[2019-07-27 06:42] LABS: BASO % 0.1 % (0.0-1.0); HEMATOCRIT 27.2 % (37.0-47.0); HEMOGLOBIN 8.3 g/dl (12.0-16.0); LYMPH # 0.8 10*3/uL (1.3-4.4); MEAN CELL VOLUME 89.8 fl (81.0-99.0); MEAN CORPUSCULAR HGB 27.4 pg (27.0-31.0); MEAN CORPUSCULAR HGB CONC 30.5 g/dl (33.0-37.0); MEAN PLATELET VOLUME 10.9 fl (9.6-12.3); MONO # 0.4 10*3/uL (0.1-1.0); MONO % 3.3 % (3.0-9.0); NEUT # 11.3 10*3/uL (2.3-7.9); PLATELET COUNT AUTOMATED 206 10*3/uL (130-400); RED BLOOD COUNT 3.03 10*6/uL (4.10-5.10); RED CELL DISTRI WIDTH 14.7 % (0-14.5); WHITE BLOOD COUNT 12.7 10*3/uL (4.8-10.8)
[2019-07-27 07:44] VITALS: BP 126/43
--- NOTE | 2019-07-27 07:45 | NUR ---
PATIENT SITTING UP IN BED. NO DISTRESS NOTED. RESPIRATIONS EASY, REGULAR AT REST. POX 96% VIA 2LNC. LUNGS DIMINISHED WITH HARSH I/E WHEEZES. SPUTUM CONTAINER AT BEDSIDE. PT AWARE. NO VOICED COMPLAINTS AT THIS TIME. WILL CONTINUE TO MONITOR. CALL LIGHT WITHIN REACH.
--- NOTE | 2019-07-27 09:31 | NUR ---
RESPIRATORY PAGED AT THIS TIME FOR PRN BREATHING TREATMENT.
[2019-07-27 12:00] VITALS: BP 130/57
[2019-07-27 16:00] VITALS: BP 115/58
[2019-07-27 20:00] VITALS: BP 129/54
--- NOTE | 2019-07-27 20:03 | NUR ---
24 HR chart check completed.
[2019-07-28] VITALS: BP 122/44
--- NOTE | 2019-07-28 04:15 | NUR ---
PATIENT RESTING WITH EYES CLOSED. RESPIRATIONS EASY AND UNLABORED ON 2LNC. CALL LIGHT WITHIN REACH. WILL MONITOR.
[2019-07-28 07:15] LABS: HEMATOCRIT 26.7 % (37.0-47.0); HEMOGLOBIN 8.3 g/dl (12.0-16.0); MEAN CELL VOLUME 89.6 fl (81.0-99.0); MEAN CORPUSCULAR HGB 27.9 pg (27.0-31.0); MEAN CORPUSCULAR HGB CONC 31.1 g/dl (33.0-37.0); MEAN PLATELET VOLUME 10.5 fl (9.6-12.3); PLATELET COUNT AUTOMATED 205 10*3/uL (130-400); RED BLOOD COUNT 2.98 10*6/uL (4.10-5.10); RED CELL DISTRI WIDTH 14.6 % (0-14.5)
[2019-07-28 07:39] LABS: OVALOCYTES FEW; PLATELET SUFFICIENCY NORMAL (NORMAL); SCHISTOCYTES FEW; TOTAL CELLS COUNTED 100 #CELLS
[2019-07-28 07:43] LABS: CREATININE 5.44 mg/dL (0.55-1.02); POTASSIUM 4.9 mmol/L (3.5-5.1)
[2019-07-28 08:00] VITALS: BP 132/80
--- NOTE | 2019-07-28 10:50 | NUR ---
Nutritional Support Services: Pt is well known to me. I've educated her multiple times over ADA 1800 calorie diet, but she is noncomplient. She states she watches Na intake and rarely consumes concentrated sweets. She admitted to not meausuring/portioning out her meals, and doesn't consume much protein. She stated she has the diet copies and home so she didn't want another one. I provided verbal education, reiterating what is found in the diet copy. I explained why a consistent PO intake is important for BG and the importance of protein with her CHO sources. She stated she is going to try to start measuring out portion sizes and refer to the diet copies she has. Joe Reno Carpet Cleaning Technician Dietitian
[2019-07-28 12:00] VITALS: BP 136/78
--- NOTE | 2019-07-28 13:30 | NUR ---
ATTEMPTED IV INSERTION TIMES TWO. UNSUCCESSFUL.
--- NOTE | 2019-07-28 14:23 | NUR ---
Trench Digger Helper in to talk to patient. Patient states lives at HOME with KIDS. There are FEW steps in the home. Physician: [facility] Home health services: NONE Patient's level of ADLs: INDEPENDENT Patient has working utilities: YES DME: OXYGEN, PROTABLE TANK, NEBULIZER. O2 [employer] Follow-up physician's appointment after d/c: WILL BE MADE BY HOSPITALIST NURSE DIRECTOR ON DISCHARGE Does patient want to access PORTAL?: NO Discharge plan PT LIVES AT HOME WITH HER KIDS AND IS INDEPENDENT IN HER CARE. DENIES THAT SHE WILL HAVE ANY NEEDS ON DISCHARGE. STATES SHE HAS OXYGEN AND NEBULIZER AT HOME. WILL CONTINUE TO FOLLOW. STATES SHE WILL HAVE A RIDE HOME.. VERO CHAVES
[2019-07-28 16:00] VITALS: BP 150/70
[2019-07-28 20:00] VITALS: BP 135/62
--- NOTE | 2019-07-28 23:50 | NUR ---
PATIENT IS RESTING IN BED WITH EASY AND REGULAR RESPERS ON ROOM AIR. ASSESSMENT IS COMPLETE WITH NO C/O OR S/S OF DISTRESS NOTED AT THIS TIME. BED IS LOW, LOCKED, AND CALL LIGHT IS WITHIN REACH. SEE SHIFT ASSESSMENT.
[2019-07-29] VITALS: BP 150/73
[2019-07-29 07:00] LABS: HEMATOCRIT 26.8 % (37.0-47.0); HEMOGLOBIN 8.4 g/dl (12.0-16.0); MEAN CELL VOLUME 87.9 fl (81.0-99.0); MEAN CORPUSCULAR HGB 27.5 pg (27.0-31.0); MEAN CORPUSCULAR HGB CONC 31.3 g/dl (33.0-37.0); MEAN PLATELET VOLUME 10.7 fl (9.6-12.3); PLATELET COUNT AUTOMATED 212 10*3/uL (130-400); RED BLOOD COUNT 3.05 10*6/uL (4.10-5.10); RED CELL DISTRI WIDTH 14.5 % (0-14.5)
[2019-07-29 07:20] LABS: CREATININE 5.34 mg/dL (0.55-1.02); POTASSIUM 4.9 mmol/L (3.5-5.1); TOTAL PROTEIN 6.9 gm/dL (6.4-8.2)
[2019-07-29 07:41] LABS: OVALOCYTES FEW; PLATELET SUFFICIENCY NORMAL (NORMAL); SCHISTOCYTES FEW; TOTAL CELLS COUNTED 100 #CELLS
[2019-07-29 08:00] VITALS: BP 154/72
--- NOTE | 2019-07-29 08:29 | NUR ---
AT 0737 SATX NOT INDICATED PT STATES SHE WILL CALL IF SHE NEEDS SATX PT IN NO DISTRESS
[2019-07-29] MEDS ORDERED: FUROSEMIDE40 MG PO (11:00)
[2019-07-29] MEDS ORDERED: DOXYCYCLINE100 M3 PO (11:01)
[2019-07-29] MEDS ORDERED: PREDNISONE10 MG PO (11:01)
--- NOTE | 2019-07-29 12:15 | NUR ---
CCDischarge instructions reviewed with patient. Patient receptive and verbalizes understanding. Follow-up care TO BE arranged BY PATIENT. Written instructions given to patient. DISCHARGE COMPLETED BY JOSÉ MIGUEL. KATHERINE HAMMONDS
--- NOTE | 2019-07-29 13:11 | NUR ---
MSDIS Discharge instructions reviewed with patient/family. Patient receptive and verbalizes understanding. Follow-up care arranged. Written instructions given to patient/family. ROSAMARIA MARTE
[2019-08-02 20:04] LABS: ADENOVIRUS Negative (Negative); INFLUENZA A Negative (Negative); INFLUENZA B Negative (Negative); METAPNEUMOVIRUS Negative (Negative); PARAINFLUENZA 1 Negative (Negative); PARAINFLUENZA 2 Negative (Negative); PARAINFLUENZA 3 Negative (Negative); RHINOVIRUS Positive (Negative); RSV A Negative (Negative); RSV B Negative (Negative)
== END 2019-07-29 12:15 | disposition home or self-care (01) | DRG 140 ==
LOC: ED 10:13 → EDHOLD 12:52 → 5E 12:52
PROVIDERS: Family Medicine; Internal Medicine Critical Care Medicine; Physician Assistant; Student in an Organized Health Care Education/Training Program; ADMIT Emergency Medicine
DX: J44.0 Chronic obstructive pulmonary disease with (acute) lower respiratory infection (principal); J20.9 Acute bronchitis, unspecified; N28.1 Cyst of kidney, acquired; J98.11 Atelectasis; E87.2 Acidosis; N18.5 Chronic kidney disease, stage 5; I13.2 Hypertensive heart and chronic kidney disease with heart failure and with stage 5 chronic kidney disease, or end stage renal disease; I42.9 Cardiomyopathy, unspecified; J44.1 Chronic obstructive pulmonary disease with (acute) exacerbation; E11.22 Type 2 diabetes mellitus with diabetic chronic kidney disease; E87.5 Hyperkalemia; J45.50 Severe persistent asthma, uncomplicated; I48.2 Chronic atrial fibrillation; I25.10 Atherosclerotic heart disease of native coronary artery without angina pectoris; K21.9 Gastro-esophageal reflux disease without esophagitis; E11.40 Type 2 diabetes mellitus with diabetic neuropathy, unspecified; E66.01 Morbid (severe) obesity due to excess calories; G47.33 Obstructive sleep apnea (adult) (pediatric); G25.81 Restless legs syndrome; I50.9 Heart failure, unspecified; E78.5 Hyperlipidemia, unspecified; D64.9 Anemia, unspecified; Z87.891 Personal history of nicotine dependence; Z88.6 Allergy status to analgesic agent; Z88.2 Allergy status to sulfonamides; Z95.1 Presence of aortocoronary bypass graft; Z90.49 Acquired absence of other specified parts of digestive tract; Z98.891 History of uterine scar from previous surgery; Z82.49 Family history of ischemic heart disease and other diseases of the circulatory system; Z84.1 Family history of disorders of kidney and ureter; Z80.51 Family history of malignant neoplasm of kidney; Z82.3 Family history of stroke; Z83.3 Family history of diabetes mellitus; Z84.89 Family history of other specified conditions; Z79.82 Long term (current) use of aspirin; Z79.899 Other long term (current) drug therapy; Z68.35 Body mass index [BMI] 35.0-35.9, adult

== ENCOUNTER → 2019-09-17 | Outpatient (CLI) | payer OTHER ==
[~2019-09-17] MED LIST changes: +Lasix80 MG PO; +MUCUS RELIEF600 MG PO; +VITAMIN D5000 UNIT PO
== END | disposition home or self-care (01) ==
LOC: RESCLI 00:38
DX: Z23 Encounter for immunization (principal); I13.2 Hypertensive heart and chronic kidney disease with heart failure and with stage 5 chronic kidney disease, or end stage renal disease; E11.22 Type 2 diabetes mellitus with diabetic chronic kidney disease; E11.65 Type 2 diabetes mellitus with hyperglycemia; N18.5 Chronic kidney disease, stage 5; I50.22 Chronic systolic (congestive) heart failure; J44.1 Chronic obstructive pulmonary disease with (acute) exacerbation; E78.5 Hyperlipidemia, unspecified; K21.9 Gastro-esophageal reflux disease without esophagitis; Q61.3 Polycystic kidney, unspecified; J30.2 Other seasonal allergic rhinitis; I25.10 Atherosclerotic heart disease of native coronary artery without angina pectoris; E66.01 Morbid (severe) obesity due to excess calories; Z79.899 Other long term (current) drug therapy; Z88.2 Allergy status to sulfonamides; Z87.891 Personal history of nicotine dependence; Z99.81 Dependence on supplemental oxygen

== ENCOUNTER → 2019-09-29 | Outpatient (CLI) | payer OTHER ==
[~2019-09-29] MED LIST changes: -Lasix80 MG PO; -MUCUS RELIEF600 MG PO; -VITAMIN D5000 UNIT PO
[2019-09-29 11:21] LABS: BILIRUBIN NEGATIVE (NEGATIVE); BLOOD 3+ (NEGATIVE); CLARITY SL CLOUDY (CLEAR); COLOR YELLOW (YELLOW); GLUCOSE 1+ (NEGATIVE); KETONE NEGATIVE (NEGATIVE); LEUKO ESTERASE 2+ (NEGATIVE); NITRITE NEGATIVE (NEGATIVE); PH 5.5 (5.0-9.0); SPECIFIC GRAVITY 1.015 (1.005-1.030); UROBILINOGEN 0.2 E.U./dl (0.2-1.0)
[2019-09-29 11:33] LABS: WBC TNTC wbc/hpf (0-5)
[2019-09-29 11:34] LABS: BASO % 0.6 % (0.0-1.0); EOS # 0.5 10*3/uL (0.0-0.4); EOS % 8.1 % (1.0-4.0); HEMATOCRIT 28.9 % (37.0-47.0); HEMOGLOBIN 8.7 g/dl (12.0-16.0); LYMPH # 0.9 10*3/uL (1.3-4.4); LYMPH % 13.6 % (27.0-41.0); MEAN CELL VOLUME 93.8 fl (81.0-99.0); MEAN CORPUSCULAR HGB 28.2 pg (27.0-31.0); MEAN CORPUSCULAR HGB CONC 30.1 g/dl (33.0-37.0); MEAN PLATELET VOLUME 11.4 fl (9.6-12.3); MONO # 0.4 10*3/uL (0.1-1.0); MONO % 5.9 % (3.0-9.0); MUCOUS 1+; NEUT # 4.6 10*3/uL (2.3-7.9); NEUT % 71.3 % (47.0-73.0); PLATELET COUNT AUTOMATED 195 10*3/uL (130-400); RED BLOOD COUNT 3.08 10*6/uL (4.10-5.10); RED CELL DISTRI WIDTH 15.3 % (0-14.5); URINE CREATININE RANDOM 52.6 mg/dL; WHITE BLOOD COUNT 6.5 10*3/uL (4.8-10.8)
[2019-09-29 11:55] LABS: POTASSIUM 5.3 mmol/L (3.5-5.1)
[2019-09-29 12:03] LABS: ALBUMIN 3.3 gm/dl (3.1-4.5); CREATININE 5.94 mg/dL (0.55-1.02)
[2019-09-29 12:34] LABS: FERRITIN 83.5 ng/mL (10.0-291.0); PTH INTACT 442.9 pg/mL (18.5-88.0); VITAMIN D, 25-HYDROXY 28.4 ng/mL (30-100)
== END | disposition home or self-care (01) ==
LOC: LAB 10:50
PROVIDERS: Internal Medicine Nephrology
DX: N18.5 Chronic kidney disease, stage 5 (principal); D63.1 Anemia in chronic kidney disease; N25.81 Secondary hyperparathyroidism of renal origin

== ENCOUNTER 2019-10-12 20:56 | Emergency (ER) | payer OTHER ==
[~2019-10-12] VITALS: Ht 154.9 cm; Wt 78.0 kg
[2019-10-12 21:01] VITALS: BP 124/60
[2019-10-12] MEDS ORDERED: MUCUS RELIEF600 MG PO (21:01)
== END 2019-10-12 22:53 | disposition home or self-care (01) ==
LOC: ED 20:56
DX: M79.601 Pain in right arm (principal); E11.9 Type 2 diabetes mellitus without complications; K21.9 Gastro-esophageal reflux disease without esophagitis; J44.9 Chronic obstructive pulmonary disease, unspecified; M19.90 Unspecified osteoarthritis, unspecified site; I50.9 Heart failure, unspecified; I11.0 Hypertensive heart disease with heart failure; Z87.891 Personal history of nicotine dependence; Z79.899 Other long term (current) drug therapy; Z79.82 Long term (current) use of aspirin; Z88.6 Allergy status to analgesic agent; Z88.2 Allergy status to sulfonamides; W01.0XXA Fall on same level from slipping, tripping and stumbling without subsequent striking against object, initial encounter; Y93.89 Activity, other specified; Y92.89 Other specified places as the place of occurrence of the external cause; Y99.8 Other external cause status

== ENCOUNTER 2019-10-15 19:00 | Inpatient (IN) | payer OTHER ==
[~2019-10-15] VITALS: Ht 154.9 cm; Wt 83.5 kg
[~2019-10-15 19:00] MED LIST changes: +MUCUS RELIEF600 MG PO
[2019-10-15 19:03] VITALS: BP 168/79
[2019-10-15 19:47] LABS: BASO # 0.1 10*3/uL (0.0-0.1); BASO % 0.3 % (0.0-1.0); EOS # 0.3 10*3/uL (0.0-0.4); EOS % 1.9 % (1.0-4.0); HEMATOCRIT 29.3 % (37.0-47.0); LYMPH # 0.7 10*3/uL (1.3-4.4); LYMPH % 4.3 % (27.0-41.0); MEAN CELL VOLUME 91.6 fl (81.0-99.0); MEAN CORPUSCULAR HGB 28.1 pg (27.0-31.0); MEAN CORPUSCULAR HGB CONC 30.7 g/dl (33.0-37.0); MONO # 0.6 10*3/uL (0.1-1.0); NEUT # 13.4 10*3/uL (2.3-7.9); PLATELET COUNT AUTOMATED 199 10*3/uL (130-400); RED CELL DISTRI WIDTH 14.6 % (0-14.5); WHITE BLOOD COUNT 15.1 10*3/uL (4.8-10.8)
[2019-10-15 20:01] VITALS: BP 171/69
[2019-10-15 20:06] LABS: ALBUMIN 3.7 gm/dl (3.1-4.5); ALKALINE PHOSPHATASE 82 U/L (45-117); BUN 62 mg/dl (7-24); CHLORIDE 110 mmol/L (98-107); CREATININE 5.83 mg/dL (0.55-1.02); POTASSIUM 4.1 mmol/L (3.5-5.1); SGOT/AST 11 IU/L (3-35); SGPT/ALT 18 U/L (12-78); SODIUM 139 mmol/L (136-145); TOTAL PROTEIN 7.4 gm/dL (6.4-8.2)
[2019-10-15 20:07] LABS: TROPONIN I < 0.015 ng/ml (<0.045)
[2019-10-15 20:35] VITALS: BP 166/67
[2019-10-15 20:35] LABS: ARTERIAL BLOOD GAS PH 7.309 (7.35-7.45)
[2019-10-15 20:36] LABS: ABG BASE EXCESS -7.9 mmol/L (-2.0-2.0)
[2019-10-15 21:19] VITALS: BP 150/68
[2019-10-15 21:58] VITALS: BP 123/53
[2019-10-15 22:17] VITALS: BP 138/53
--- NOTE | 2019-10-15 22:17 | NUR ---
A 48, admitted to , under the services of SIRENA Gonzáles DO with a diagnosis of LEUKOCYTOSIS, COPD EXACERBATION, SEPSIS, LEFT LOWER LOBE PNEUMONIA. Chief complaint is SOB. Patient arrived via bed from ER. Monitor applied. Initial assessment completed. Vital signs taken and recorded. SIRENA GONZÁLES DO notified of admission to the unit. Orders received. See assessment for past medical history, medications and allergies. Patient and/or family oriented to unit. [facility] reviewed. Clothing/patient valuable form completed. GREGOR BROUSSARD
[2019-10-15] MEDS ORDERED: VITAMIN D5000 UNIT PO (22:53)
--- NOTE | 2019-10-15 22:57 | NUR ---
CALLED DR HOUSTON TO INFROM HIM OF THE UPDATED MED LIST.
--- NOTE | 2019-10-15 23:06 | NUR ---
CALLED DR REDDY TO INFORM HIM OF THE NEW CONSULT AND THAT THE PATIENTS O2 HAS BEEN IN THE 92%, HE STATED OK.
[2019-10-16] VITALS: BP 138/55
--- NOTE | 2019-10-16 02:40 | NUR ---
24 HR chart check completed.
--- NOTE | 2019-10-16 04:00 | NUR ---
Patient sleeping. Respirations relaxed and easy. [place] on, call light within reach. GREGOR BROUSSARD
[2019-10-16 06:41] LABS: HEMATOCRIT 27.1 % (37.0-47.0); MEAN CELL VOLUME 93.4 fl (81.0-99.0); MEAN CORPUSCULAR HGB 27.6 pg (27.0-31.0); MEAN CORPUSCULAR HGB CONC 29.5 g/dl (33.0-37.0); MEAN PLATELET VOLUME 11.1 fl (9.6-12.3); PLATELET COUNT AUTOMATED 174 10*3/uL (130-400); RED CELL DISTRI WIDTH 14.5 % (0-14.5); WHITE BLOOD COUNT 9.1 10*3/uL (4.8-10.8)
[2019-10-16 07:03] LABS: POTASSIUM 4.3 mmol/L (3.5-5.1)
[2019-10-16 07:13] LABS: CREATININE 5.96 mg/dL (0.55-1.02); PHOSPHOROUS 5.3 mg/dL (2.5-4.9); TOTAL PROTEIN 6.4 gm/dL (6.4-8.2)
[2019-10-16 07:28] LABS: OVALOCYTES FEW; PLATELET SUFFICIENCY NORMAL (NORMAL); TOTAL CELLS COUNTED 100 #CELLS
[2019-10-16 08:00] VITALS: BP 124/60
--- NOTE | 2019-10-16 10:30 | NUR ---
KELLEN FROM PALLIATIVE CARE MADE AWARE OF NEW REFERRAL.
[2019-10-16 12:00] VITALS: BP 100/52
--- NOTE | 2019-10-16 12:05 | NUR ---
Civil Engineering Assistant in to talk to patient. Patient states lives at HOME with KIDS. There are NO steps in the home. Physician: [facility] Home health services: NONE Patient's level of ADLs: MINIMAL ASSIST Patient has working utilities: YES DME: C PAP Follow-up physician's appointment after d/c: WILL BE MADE BY HOSPITALIST NURSE DIRECTOR ON DISCHARGE Does patient want to access PORTAL?: NO Discharge plan PT LIVES AT HOME WITH HER KIDS. STATES SHE IS ABLE TO COMPLETE HER OWN ACTIVITIES OF DAILY LIVING AND DOES NOT WANT HOME HEALTH AT HOME ON DISCHARGE. STATES SHE PLANS TO RETURN HOME WITH KIDS. WILL CONTINUE TO FOLOW STATES HER KIDS WILL TAKE HER HOME.. VERO CHAVES
[2019-10-16 16:00] VITALS: BP 120/54
--- NOTE | 2019-10-16 17:50 | NUR ---
MEDICATED WITH NORCO PER PRN ORDER FOR COMPLAINTS OF LEFT HAND/ARM PAIN. WILL MONITOR FOR EFFECTIVENESS.
[2019-10-16 20:00] VITALS: BP 119/49
[2019-10-17] VITALS: BP 107/41
--- NOTE | 2019-10-17 03:20 | NUR ---
24 HR chart check completed.
--- NOTE | 2019-10-17 03:49 | NUR ---
Patient sleeping. Respirations relaxed and easy. [place] up . [place] on. GREGOR BROUSSARD
[2019-10-17 06:42] LABS: HEMOGLOBIN 7.7 g/dl (12.0-16.0); MEAN CELL VOLUME 91.2 fl (81.0-99.0); MEAN CORPUSCULAR HGB 28.1 pg (27.0-31.0); MEAN CORPUSCULAR HGB CONC 30.8 g/dl (33.0-37.0); MEAN PLATELET VOLUME 11.3 fl (9.6-12.3); PLATELET COUNT AUTOMATED 167 10*3/uL (130-400); RED BLOOD COUNT 2.74 10*6/uL (4.10-5.10); RED CELL DISTRI WIDTH 14.6 % (0-14.5); WHITE BLOOD COUNT 11.3 10*3/uL (4.8-10.8)
[2019-10-17 06:51] LABS: CREATININE 6.29 mg/dL (0.55-1.02); POTASSIUM 4.6 mmol/L (3.5-5.1)
[2019-10-17 07:45] VITALS: BP 124/62
--- NOTE | 2019-10-17 07:45 | NUR ---
ASSESSMENT COMPLETED AND DOCUMENTED. PT AWAKE, LAYING IN BED. PT WEARS O2 INTERMITTENTLY. NO COMPLAINTS AT THIS TIME. EDITH BENNETT SPCHERYLCC
[2019-10-17 07:46] LABS: PLATELET SUFFICIENCY NORMAL (NORMAL); TOTAL CELLS COUNTED 100 #CELLS
[2019-10-17 07:47] LABS: POLYCHROMASIA SLIGHT
--- NOTE | 2019-10-17 09:45 | NUR ---
PT AWAKE, LAYING IN BED WATCHING TV. NO COMPLAINTS AT THIS TIME. EDITH BENNETT SPCC
[2019-10-17] MEDS ORDERED: SODIUM BICARBO650 MG PO (10:28)
--- NOTE | 2019-10-17 10:32 | NUR ---
PT RESTING IN BED, NO DISTRESS NOTED. CALL LIGHT WITHIN REACH.
[2019-10-17 12:15] VITALS: BP 130/52
--- NOTE | 2019-10-17 12:15 | NUR ---
ASSESSMENT COMPLETED AND DOCUMENTED. PT JUST ATE LUNCH, WATCHING TV. NO COMPLAINTS AT THIS TIME. EDITH BENNETT SPNRCC
--- NOTE | 2019-10-17 12:42 | NUR ---
COMMUNITY PALLIATIVE WILL FOLLOW PT ON DISCHARGE. WILL CONTINUE TO FOLLOW.
--- NOTE | 2019-10-17 13:30 | NUR ---
PT LAYING IN BED. NO COMPLAINTS AT THIS TIME. REPORT GIVEN TO OJ. EDITH BENNETT SPCC
[2019-10-17 16:00] VITALS: BP 130/56
--- NOTE | 2019-10-17 16:41 | NUR ---
DR WELLER'S ANSWERING SERVICE MADE AWARE OF NEW CONSULT.
[2019-10-17 20:00] VITALS: BP 142/58
--- NOTE | 2019-10-17 20:30 | NUR ---
RECEIVED REPORT FROM NURSE MCWILLIAMS ON 4TH FLOOR EARLIER. PT ARRIVED TO 5TH FLOOR AT THIS TIME WITH BELONGINGS. PATIENT CO A NONPRODUCTIVE COUGH AND SOME SOB. SHE USES HER OXYGEN NEEDED. PUT ON 2L NC AT THIS TIME. PT HAS SOME EXPIRATORY WHEEZES. NO OTHER COMPLAINTS FROM THE PATIENT AT THIS TIME. SHE STATES TOLD HER SHE WOULD BE GOOD TO GO HOME TOMORROW. WILL CONTINUE TO MONITOR. CALL LIGHT WITHIN REACH.
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
[2019-10-18] VITALS: BP 104/49
--- NOTE | 2019-10-18 01:05 | NUR ---
24 HR chart check completed.
--- NOTE | 2019-10-18 02:21 | NUR ---
Patient sleeping. Respirations relaxed and easy. [place] up . [place] on. No signs of distress noted. MICHELLE KENT
[2019-10-18 06:29] LABS: HEMATOCRIT 26.4 % (37.0-47.0); HEMOGLOBIN 8.2 g/dl (12.0-16.0); MEAN CELL VOLUME 91.7 fl (81.0-99.0); MEAN CORPUSCULAR HGB 28.5 pg (27.0-31.0); MEAN CORPUSCULAR HGB CONC 31.1 g/dl (33.0-37.0); NUCLEATED RED BLOOD CELL 0.2 % (0.0-0.0); PLATELET COUNT AUTOMATED 187 10*3/uL (130-400); RED BLOOD COUNT 2.88 10*6/uL (4.10-5.10); RED CELL DISTRI WIDTH 14.3 % (0-14.5)
[2019-10-18 06:45] LABS: CREATININE 6.69 mg/dL (0.55-1.02); POTASSIUM 4.9 mmol/L (3.5-5.1)
[2019-10-18 07:07] LABS: BURR CELLS MODERATE; PLATELET SUFFICIENCY NORMAL (NORMAL); SCHISTOCYTES FEW; TOTAL CELLS COUNTED 100 #CELLS
[2019-10-18 07:08] LABS: OVALOCYTES FEW; POLYCHROMASIA SLIGHT
[2019-10-18 08:00] VITALS: BP 132/51
[2019-10-18 12:00] VITALS: BP 110/48
[2019-10-18] MEDS ORDERED: DOXYCYCLINE100 M3 PO ×2 (14:37→15:28)
[2019-10-18] MEDS ORDERED: Lasix80 MG PO ×2 (14:37→15:28)
[2019-10-18] MEDS ORDERED: PREDNISONE10 MG PO ×2 (14:37→15:28)
--- NOTE | 2019-10-18 15:27 | NUR ---
Discharge instructions reviewed with patient. Patient receptive and verbalizes understanding. Follow-up care arranged. Written instructions given to patient. PATIENT WAITING FOR RIDE HOME WITH HER DAUGHTER FOR DISCHARGE. ZULMA DELAROSA
[2019-10-18 16:00] VITALS: BP 105/46
--- NOTE | 2019-10-18 16:07 | NUR ---
PATIENT INSTRUCTED TO CALL [facility] SUNDAY TO OBTAIN A COPY OF HER HOME SLIDING SCALE. BEDSIDE GLUCOSE RESULT 410, RECHECKED FOR 406, ORDERING STAT REFLEX GLUCOSE PER POLICY.
--- NOTE | 2019-10-18 16:50 | NUR ---
STAT REFLEX GLUCOSE 432. ADMINISTERED 22 UNITS HUMALOG INSULIN PER SLIDING SCALE ORDER.
--- NOTE | 2019-10-18 17:30 | NUR ---
PATIENT DISCHARGED TO [facility], AMBULATORY, FOR TRANSPORT HOME BY PRIVATE VEHICLE WITH HER FAMILY.
[2019-10-21 19:08] LABS: ADENOVIRUS Negative (Negative); INFLUENZA A Negative (Negative); INFLUENZA B Negative (Negative); METAPNEUMOVIRUS Negative (Negative); PARAINFLUENZA 1 Negative (Negative); PARAINFLUENZA 2 Negative (Negative); PARAINFLUENZA 3 Negative (Negative); RHINOVIRUS Positive (Negative); RSV A Negative (Negative); RSV B Negative (Negative)
== END 2019-10-18 18:34 | disposition home or self-care (01) | DRG 720 ==
LOC: ED 19:00 → 4E 20:44 → EDHOLD 20:44 → 4E 21:27 → 5E 10-17 20:53
PROVIDERS: Family Medicine; Internal Medicine; Internal Medicine Critical Care Medicine; Nurse Practitioner; ADMIT Internal Medicine
DX: A41.9 Sepsis, unspecified organism (principal); J18.9 Pneumonia, unspecified organism; E44.0 Moderate protein-calorie malnutrition; E87.2 Acidosis; E55.9 Vitamin D deficiency, unspecified; E78.5 Hyperlipidemia, unspecified; R65.20 Severe sepsis without septic shock; I25.810 Atherosclerosis of coronary artery bypass graft(s) without angina pectoris; E11.65 Type 2 diabetes mellitus with hyperglycemia; I13.2 Hypertensive heart and chronic kidney disease with heart failure and with stage 5 chronic kidney disease, or end stage renal disease; K21.9 Gastro-esophageal reflux disease without esophagitis; J44.0 Chronic obstructive pulmonary disease with (acute) lower respiratory infection; G25.81 Restless legs syndrome; E66.01 Morbid (severe) obesity due to excess calories; I50.9 Heart failure, unspecified; G47.33 Obstructive sleep apnea (adult) (pediatric); J45.41 Moderate persistent asthma with (acute) exacerbation; N18.6 End stage renal disease; E11.42 Type 2 diabetes mellitus with diabetic polyneuropathy; J96.21 Acute and chronic respiratory failure with hypoxia; D63.1 Anemia in chronic kidney disease; N18.4 Chronic kidney disease, stage 4 (severe); J45.901 Unspecified asthma with (acute) exacerbation; E11.22 Type 2 diabetes mellitus with diabetic chronic kidney disease; Z79.4 Long term (current) use of insulin; Z88.6 Allergy status to analgesic agent; Z88.2 Allergy status to sulfonamides; Z90.49 Acquired absence of other specified parts of digestive tract; Z98.891 History of uterine scar from previous surgery; Z95.1 Presence of aortocoronary bypass graft; Z87.891 Personal history of nicotine dependence; Z82.49 Family history of ischemic heart disease and other diseases of the circulatory system; Z84.1 Family history of disorders of kidney and ureter; Z82.3 Family history of stroke; Z83.3 Family history of diabetes mellitus; Z80.51 Family history of malignant neoplasm of kidney; Z79.82 Long term (current) use of aspirin; Z79.899 Other long term (current) drug therapy; Z88.8 Allergy status to other drugs, medicaments and biological substances; Z68.33 Body mass index [BMI] 33.0-33.9, adult

== ENCOUNTER → 2019-11-20 | Outpatient (CLI) | payer OTHER ==
[~2019-11-20] MED LIST changes: +Lasix80 MG PO; +VITAMIN D5000 UNIT PO
[2019-11-20 15:46] LABS: BASO % 0.2 % (0.0-1.0); EOS # 0.5 10*3/uL (0.0-0.4); HEMATOCRIT 29.1 % (37.0-47.0); HEMOGLOBIN 8.9 g/dl (12.0-16.0); LYMPH % 12.2 % (27.0-41.0); MEAN CELL VOLUME 90.7 fl (81.0-99.0); MEAN CORPUSCULAR HGB 27.7 pg (27.0-31.0); MEAN CORPUSCULAR HGB CONC 30.6 g/dl (33.0-37.0); MEAN PLATELET VOLUME 10.9 fl (9.6-12.3); MONO # 0.4 10*3/uL (0.1-1.0); MONO % 5.4 % (3.0-9.0); NEUT # 6.1 10*3/uL (2.3-7.9); NEUT % 75.6 % (47.0-73.0); PLATELET COUNT AUTOMATED 236 10*3/uL (130-400); RED BLOOD COUNT 3.21 10*6/uL (4.10-5.10); RED CELL DISTRI WIDTH 14.2 % (0-14.5)
[2019-11-20 15:48] LABS: BILIRUBIN NEGATIVE (NEGATIVE); BLOOD 1+ (NEGATIVE); CLARITY CLEAR (CLEAR); COLOR YELLOW (YELLOW); GLUCOSE 2+ (NEGATIVE); KETONE NEGATIVE (NEGATIVE); LEUKO ESTERASE NEGATIVE (NEGATIVE); NITRITE NEGATIVE (NEGATIVE); UROBILINOGEN 0.2 E.U./dl (0.2-1.0)
[2019-11-20 15:55] LABS: URINE CREATININE RANDOM 72.3 mg/dL
[2019-11-20 15:59] LABS: ALBUMIN 3.2 gm/dl (3.1-4.5); CREATININE 6.4 mg/dL (0.55-1.02); PHOSPHOROUS 5.5 mg/dL (2.5-4.9); POTASSIUM 5.1 mmol/L (3.5-5.1)
[2019-11-20 16:00] LABS: BACTERIA TRACE; RBC 0-2 rbc/hpf (0-2)
[2019-11-20 16:28] LABS: FERRITIN 62.7 ng/mL (10.0-291.0); PTH INTACT 361.3 pg/mL (18.5-88.0); VITAMIN D, 25-HYDROXY 32.5 ng/mL (30-100)
== END | disposition home or self-care (01) ==
LOC: LAB 01:30 → RESCLI 01:30
PROVIDERS: Internal Medicine Nephrology
DX: E11.22 Type 2 diabetes mellitus with diabetic chronic kidney disease (principal); I13.0 Hypertensive heart and chronic kidney disease with heart failure and stage 1 through stage 4 chronic kidney disease, or unspecified chronic kidney disease; N18.4 Chronic kidney disease, stage 4 (severe); I50.22 Chronic systolic (congestive) heart failure; D63.1 Anemia in chronic kidney disease; N25.81 Secondary hyperparathyroidism of renal origin; G25.81 Restless legs syndrome; J44.1 Chronic obstructive pulmonary disease with (acute) exacerbation; E55.9 Vitamin D deficiency, unspecified; J30.2 Other seasonal allergic rhinitis; J44.9 Chronic obstructive pulmonary disease, unspecified; E78.5 Hyperlipidemia, unspecified; K21.9 Gastro-esophageal reflux disease without esophagitis; D50.9 Iron deficiency anemia, unspecified; Z79.899 Other long term (current) drug therapy; Z88.2 Allergy status to sulfonamides; Z88.6 Allergy status to analgesic agent

== ENCOUNTER → 2019-12-03 | Outpatient (CLI) | payer OTHER ==
[~2019-12-03] MED LIST changes: +PERCOCET 10-321 EACH PO; +PERCOCET 5-3251 EACH PO
== END | disposition home or self-care (01) ==
LOC: MAMMO 11:03
DX: Z12.31 Encounter for screening mammogram for malignant neoplasm of breast (principal)

== ENCOUNTER → 2019-12-30 | Outpatient (CLI) | payer OTHER | END | disposition home or self-care (01) | LOC: RESCLI 02:00 | DX: I13.2 Hypertensive heart and chronic kidney disease with heart failure and with stage 5 chronic kidney disease, or end stage renal disease (principal); E11.22 Type 2 diabetes mellitus with diabetic chronic kidney disease; E11.42 Type 2 diabetes mellitus with diabetic polyneuropathy; E11.65 Type 2 diabetes mellitus with hyperglycemia; N18.6 End stage renal disease; I50.22 Chronic systolic (congestive) heart failure; G47.30 Sleep apnea, unspecified; J44.9 Chronic obstructive pulmonary disease, unspecified; D64.9 Anemia, unspecified; E78.5 Hyperlipidemia, unspecified; I25.10 Atherosclerotic heart disease of native coronary artery without angina pectoris; K21.9 Gastro-esophageal reflux disease without esophagitis; J30.2 Other seasonal allergic rhinitis; Q61.3 Polycystic kidney, unspecified; E66.01 Morbid (severe) obesity due to excess calories; E55.9 Vitamin D deficiency, unspecified; G25.81 Restless legs syndrome; E21.3 Hyperparathyroidism, unspecified; H72.92 Unspecified perforation of tympanic membrane, left ear; J02.0 Streptococcal pharyngitis; M25.511 Pain in right shoulder; Z79.4 Long term (current) use of insulin; Z79.899 Other long term (current) drug therapy; Z88.8 Allergy status to other drugs, medicaments and biological substances ==

== ENCOUNTER 2020-01-04 17:44 | Emergency (ER) | payer OTHER ==
[~2020-01-04] VITALS: Ht 154.9 cm; Wt 78.9 kg
[~2020-01-04 17:44] MED LIST changes: -PERCOCET 10-321 EACH PO; -PERCOCET 5-3251 EACH PO
[2020-01-04 18:27] LABS: BILIRUBIN 1+ (NEGATIVE); BLOOD 3+ (NEGATIVE); CLARITY SL CLOUDY (CLEAR); COLOR YELLOW (YELLOW); GLUCOSE NEGATIVE (NEGATIVE); KETONE NEGATIVE (NEGATIVE); LEUKO ESTERASE TRACE (NEGATIVE); NITRITE NEGATIVE (NEGATIVE); RBC TNTC rbc/hpf (0-2); UROBILINOGEN 0.2 E.U./dl (0.2-1.0)
[2020-01-04 18:28] LABS: BACTERIA 1+; EPITHELIAL CELLS 16-20; MUCOUS 1+; YEAST 1+
[2020-01-04 18:37] LABS: BASO % 0.1 % (0.0-1.0); HEMATOCRIT 27.3 % (37.0-47.0); HEMOGLOBIN 8.5 g/dl (12.0-16.0); LYMPH # 1.2 10*3/uL (1.3-4.4); LYMPH % 12.3 % (27.0-41.0); MEAN CELL VOLUME 85.8 fl (81.0-99.0); MEAN CORPUSCULAR HGB 26.7 pg (27.0-31.0); MEAN CORPUSCULAR HGB CONC 31.1 g/dl (33.0-37.0); MEAN PLATELET VOLUME 10.7 fl (9.6-12.3); MONO # 0.5 10*3/uL (0.1-1.0); MONO % 5.2 % (3.0-9.0); NEUT # 7.8 10*3/uL (2.3-7.9); NEUT % 81.9 % (47.0-73.0); PLATELET COUNT AUTOMATED 209 10*3/uL (130-400); RED BLOOD COUNT 3.18 10*6/uL (4.10-5.10); RED CELL DISTRI WIDTH 15.1 % (0-14.5); WHITE BLOOD COUNT 9.5 10*3/uL (4.8-10.8)
[2020-01-04 18:52] LABS: ALBUMIN 3.5 gm/dl (3.1-4.5); CREATININE 8.37 mg/dL (0.55-1.02); POTASSIUM 4.5 mmol/L (3.5-5.1); TOTAL PROTEIN 7.6 gm/dL (6.4-8.2)
[2020-01-04 20:30] VITALS: BP 132/74
[2020-01-04] MEDS ORDERED: PERCOCET 5-3251 EACH PO (21:21)
== END 2020-01-04 22:00 | disposition home or self-care (01) ==
LOC: ED 17:44
PROVIDERS: Nurse Practitioner Family
DX: N17.9 Acute kidney failure, unspecified (principal); Q61.3 Polycystic kidney, unspecified; E11.22 Type 2 diabetes mellitus with diabetic chronic kidney disease; I13.0 Hypertensive heart and chronic kidney disease with heart failure and stage 1 through stage 4 chronic kidney disease, or unspecified chronic kidney disease; I50.9 Heart failure, unspecified; N18.9 Chronic kidney disease, unspecified; I25.2 Old myocardial infarction; Z87.442 Personal history of urinary calculi; Z95.1 Presence of aortocoronary bypass graft; Z88.8 Allergy status to other drugs, medicaments and biological substances; Z88.2 Allergy status to sulfonamides; Z79.899 Other long term (current) drug therapy; Z79.2 Long term (current) use of antibiotics; Z79.4 Long term (current) use of insulin; Z79.82 Long term (current) use of aspirin; Z87.891 Personal history of nicotine dependence

== ENCOUNTER 2020-01-06 15:03 | Emergency (ER) | payer OTHER ==
[~2020-01-06] VITALS: Ht 154.9 cm; Wt 78.9 kg
[~2020-01-06 15:03] MED LIST changes: +PERCOCET 5-3251 EACH PO
[2020-01-06 15:07] VITALS: BP 123/46
[2020-01-06 16:02] LABS: BILIRUBIN NEGATIVE (NEGATIVE); BLOOD 3+ (NEGATIVE); CLARITY SL CLOUDY (CLEAR); COLOR YELLOW (YELLOW); GLUCOSE 2+ (NEGATIVE); KETONE NEGATIVE (NEGATIVE); LEUKO ESTERASE 1+ (NEGATIVE); NITRITE NEGATIVE (NEGATIVE); UROBILINOGEN 0.2 E.U./dl (0.2-1.0)
[2020-01-06 16:03] LABS: EPITHELIAL CELLS TNTC; WBC 16-20 wbc/hpf (0-5)
[2020-01-06 16:04] LABS: BACTERIA 2+
[2020-01-06 16:12] LABS: BASO % 0.1 % (0.0-1.0); HEMATOCRIT 24.8 % (37.0-47.0); HEMOGLOBIN 7.6 g/dl (12.0-16.0); LYMPH # 1.3 10*3/uL (1.3-4.4); LYMPH % 12.7 % (27.0-41.0); MEAN CELL VOLUME 86.7 fl (81.0-99.0); MEAN CORPUSCULAR HGB 26.6 pg (27.0-31.0); MEAN CORPUSCULAR HGB CONC 30.6 g/dl (33.0-37.0); MEAN PLATELET VOLUME 10.8 fl (9.6-12.3); MONO # 0.5 10*3/uL (0.1-1.0); MONO % 5.3 % (3.0-9.0); NEUT # 7.9 10*3/uL (2.3-7.9); NEUT % 80.4 % (47.0-73.0); PLATELET COUNT AUTOMATED 172 10*3/uL (130-400); RED BLOOD COUNT 2.86 10*6/uL (4.10-5.10); RED CELL DISTRI WIDTH 15.6 % (0-14.5); WHITE BLOOD COUNT 9.8 10*3/uL (4.8-10.8)
[2020-01-06 16:28] LABS: ALBUMIN 3.3 gm/dl (3.1-4.5); CREATININE 8.54 mg/dL (0.55-1.02); POTASSIUM 4.4 mmol/L (3.5-5.1)
[2020-01-06] MEDS ORDERED: PERCOCET 10-321 EACH PO (16:54)
[2020-01-07 05:05] LABS: HEPATITIS B SURFACE AB 006395 Non Reactive (.); HEPATITIS B SURFACE AG Negative (Negative); HEPATITIS C VIRUS ANTIBODY <0.1 s/co (0.0-0.9)
== END 2020-01-06 18:10 | disposition home or self-care (01) ==
LOC: ED 15:03
PROVIDERS: Family Medicine
DX: Q61.3 Polycystic kidney, unspecified (principal); R11.10 Vomiting, unspecified; I25.10 Atherosclerotic heart disease of native coronary artery without angina pectoris; K21.9 Gastro-esophageal reflux disease without esophagitis; E78.5 Hyperlipidemia, unspecified; E66.01 Morbid (severe) obesity due to excess calories; E11.40 Type 2 diabetes mellitus with diabetic neuropathy, unspecified; J45.909 Unspecified asthma, uncomplicated; E11.22 Type 2 diabetes mellitus with diabetic chronic kidney disease; I13.2 Hypertensive heart and chronic kidney disease with heart failure and with stage 5 chronic kidney disease, or end stage renal disease; N18.5 Chronic kidney disease, stage 5; I50.9 Heart failure, unspecified; Z88.8 Allergy status to other drugs, medicaments and biological substances; Z88.2 Allergy status to sulfonamides; Z79.2 Long term (current) use of antibiotics; Z79.899 Other long term (current) drug therapy; Z79.4 Long term (current) use of insulin; Z79.82 Long term (current) use of aspirin; Z98.61 Coronary angioplasty status; Z90.49 Acquired absence of other specified parts of digestive tract; Z87.891 Personal history of nicotine dependence

== ENCOUNTER 2020-01-26 11:27 | Emergency (ER) | payer OTHER ==
[~2020-01-26] VITALS: Ht 154.9 cm; Wt 78.9 kg
[~2020-01-26 11:27] MED LIST changes: +PERCOCET 10-321 EACH PO
[2020-01-26 12:21] LABS: HEMATOCRIT 31.1 % (37.0-47.0); HEMOGLOBIN 9.5 g/dl (12.0-16.0); LYMPH # 0.7 10*3/uL (1.3-4.4); LYMPH % 10.2 % (27.0-41.0); MEAN CELL VOLUME 89.9 fl (81.0-99.0); MEAN CORPUSCULAR HGB 27.5 pg (27.0-31.0); MEAN CORPUSCULAR HGB CONC 30.5 g/dl (33.0-37.0); MEAN PLATELET VOLUME 10.5 fl (9.6-12.3); MONO # 0.5 10*3/uL (0.1-1.0); MONO % 7.8 % (3.0-9.0); NEUT # 5.2 10*3/uL (2.3-7.9); NEUT % 81.5 % (47.0-73.0); PLATELET COUNT AUTOMATED 207 10*3/uL (130-400); RED BLOOD COUNT 3.46 10*6/uL (4.10-5.10); RED CELL DISTRI WIDTH 16.4 % (0-14.5); WHITE BLOOD COUNT 6.4 10*3/uL (4.8-10.8)
[2020-01-26 12:34] LABS: ACT PARTIAL THROMBO TIME 23.2 SECONDS (20.0-32.1)
[2020-01-26 12:37] LABS: ALBUMIN 3.4 gm/dl (3.1-4.5); ALKALINE PHOSPHATASE 103 U/L (45-117); BUN 20 mg/dl (7-24); CHLORIDE 101 mmol/L (98-107); CREATININE 3.24 mg/dL (0.55-1.02); LIPASE 181 U/L (73-393); POTASSIUM 4.1 mmol/L (3.5-5.1); SGOT/AST 22 IU/L (3-35); SGPT/ALT 31 U/L (12-78); SODIUM 136 mmol/L (136-145); TOTAL PROTEIN 7.6 gm/dL (6.4-8.2)
[2020-01-26 12:43] LABS: TROPONIN I < 0.015 ng/ml (<0.045)
[2020-01-26 12:56] LABS: BILIRUBIN 1+ (NEGATIVE); CLARITY CLOUDY (CLEAR); COLOR YELLOW (YELLOW); GLUCOSE 1+ (NEGATIVE); KETONE TRACE (NEGATIVE)
[2020-01-26 12:57] LABS: BACTERIA 2+; BLOOD 2+ (NEGATIVE); LEUKO ESTERASE 1+ (NEGATIVE); NITRITE NEGATIVE (NEGATIVE); PH 8.5 (5.0-9.0); UROBILINOGEN 0.2 E.U./dl (0.2-1.0)
[2020-01-26] MEDS ORDERED: ZOFRAN4 MG PO (14:06)
[2020-01-26 14:08] VITALS: BP 115/45
== END 2020-01-26 14:12 | disposition home or self-care (01) ==
LOC: ED 11:27
PROVIDERS: Emergency Medicine
DX: R11.2 Nausea with vomiting, unspecified (principal); I12.9 Hypertensive chronic kidney disease with stage 1 through stage 4 chronic kidney disease, or unspecified chronic kidney disease; E11.22 Type 2 diabetes mellitus with diabetic chronic kidney disease; N18.4 Chronic kidney disease, stage 4 (severe); J44.9 Chronic obstructive pulmonary disease, unspecified; K21.9 Gastro-esophageal reflux disease without esophagitis; I25.10 Atherosclerotic heart disease of native coronary artery without angina pectoris; G47.33 Obstructive sleep apnea (adult) (pediatric); E78.5 Hyperlipidemia, unspecified; Z88.8 Allergy status to other drugs, medicaments and biological substances; Z79.899 Other long term (current) drug therapy; Z79.2 Long term (current) use of antibiotics; Z79.4 Long term (current) use of insulin; Z79.82 Long term (current) use of aspirin; Z95.1 Presence of aortocoronary bypass graft; Z90.49 Acquired absence of other specified parts of digestive tract; Z87.891 Personal history of nicotine dependence

== ENCOUNTER → 2020-06-04 | Outpatient (CLI) | payer MEDICARE, MEDICAID ==
[~2020-06-04] MED LIST changes: +ZOFRAN4 MG PO
== END | disposition home or self-care (01) ==
LOC: RESCLI 13:13
DX: I13.2 Hypertensive heart and chronic kidney disease with heart failure and with stage 5 chronic kidney disease, or end stage renal disease (principal); E11.22 Type 2 diabetes mellitus with diabetic chronic kidney disease; I50.22 Chronic systolic (congestive) heart failure; N18.6 End stage renal disease; Z99.2 Dependence on renal dialysis; I25.10 Atherosclerotic heart disease of native coronary artery without angina pectoris; K21.9 Gastro-esophageal reflux disease without esophagitis; E11.65 Type 2 diabetes mellitus with hyperglycemia; E11.42 Type 2 diabetes mellitus with diabetic polyneuropathy; E78.5 Hyperlipidemia, unspecified; Q61.2 Polycystic kidney, adult type

== ENCOUNTER → 2020-08-19 | Outpatient (CLI) | payer OTHER | END | disposition home or self-care (01) | LOC: RESCLI 13:29 | PROVIDERS: ATTEND Internal Medicine | DX: Z23 Encounter for immunization (principal); I13.0 Hypertensive heart and chronic kidney disease with heart failure and stage 1 through stage 4 chronic kidney disease, or unspecified chronic kidney disease; I50.22 Chronic systolic (congestive) heart failure; E11.22 Type 2 diabetes mellitus with diabetic chronic kidney disease; N18.6 End stage renal disease; J44.9 Chronic obstructive pulmonary disease, unspecified; E11.69 Type 2 diabetes mellitus with other specified complication; E55.9 Vitamin D deficiency, unspecified; E11.42 Type 2 diabetes mellitus with diabetic polyneuropathy; I25.10 Atherosclerotic heart disease of native coronary artery without angina pectoris; Z79.4 Long term (current) use of insulin ==

== ENCOUNTER 2020-10-13 09:58 | Emergency (ER) | payer OTHER ==
[~2020-10-13] VITALS: Wt 75.7 kg
[2020-10-13 09:59] VITALS: BP 146/68
[2020-10-13 11:01] LABS: BASO % 0.1 % (0.0-1.0); HEMATOCRIT 40.2 % (37.0-47.0); LYMPH # 1.2 10*3/uL (1.3-4.4); LYMPH % 16.1 % (27.0-41.0); MEAN CELL VOLUME 94.8 fl (81.0-99.0); MEAN CORPUSCULAR HGB CONC 31.6 g/dl (33.0-37.0); MEAN PLATELET VOLUME 10.2 fl (9.6-12.3); MONO # 0.5 10*3/uL (0.1-1.0); MONO % 6.6 % (3.0-9.0); NEUT # 5.5 10*3/uL (2.3-7.9); NEUT % 76.6 % (47.0-73.0); PLATELET COUNT AUTOMATED 224 10*3/uL (130-400); RED BLOOD COUNT 4.24 10*6/uL (4.10-5.10); RED CELL DISTRI WIDTH 12.8 % (0-14.5); WHITE BLOOD COUNT 7.2 10*3/uL (4.8-10.8)
[2020-10-13 11:12] LABS: ACT PARTIAL THROMBO TIME 26.3 SECONDS (20.0-32.1)
[2020-10-13 11:17] LABS: ALBUMIN 3.4 gm/dl (3.1-4.5); ALKALINE PHOSPHATASE 118 U/L (45-117); BUN 34 mg/dl (7-24); CHLORIDE 100 mmol/L (98-107); CREATININE 7.49 mg/dL (0.55-1.02); POTASSIUM 4.2 mmol/L (3.5-5.1); SGOT/AST 17 IU/L (3-35); SGPT/ALT 21 U/L (12-78); SODIUM 138 mmol/L (136-145); TOTAL PROTEIN 7.8 gm/dL (6.4-8.2)
[2020-10-13 11:23] LABS: TROPONIN I < 0.015 ng/ml (<0.045)
[2020-10-13] MEDS ORDERED: Ipratropium Brom3 ML INH (11:48)
[2020-10-13] MEDS ORDERED: DECADRON6 M1 PO (11:48)
== END 2020-10-13 12:38 | disposition home or self-care (01) ==
LOC: ED 09:58
PROVIDERS: Emergency Medicine
DX: U07.1 COVID-19 (principal); J44.1 Chronic obstructive pulmonary disease with (acute) exacerbation; Z88.8 Allergy status to other drugs, medicaments and biological substances; Z88.2 Allergy status to sulfonamides; Z79.899 Other long term (current) drug therapy; Z79.4 Long term (current) use of insulin; Z79.82 Long term (current) use of aspirin; Z79.2 Long term (current) use of antibiotics

== ENCOUNTER → 2020-11-30 | Outpatient (CLI) | payer OTHER ==
[~2020-11-30] MED LIST changes: +DECADRON6 M1 PO
== END | disposition home or self-care (01) ==
LOC: RESCLI 03:02
PROVIDERS: ATTEND Student in an Organized Health Care Education/Training Program
DX: E11.69 Type 2 diabetes mellitus with other specified complication (principal); I13.2 Hypertensive heart and chronic kidney disease with heart failure and with stage 5 chronic kidney disease, or end stage renal disease; E11.22 Type 2 diabetes mellitus with diabetic chronic kidney disease; I50.9 Heart failure, unspecified; N18.6 End stage renal disease; Q61.2 Polycystic kidney, adult type; J44.9 Chronic obstructive pulmonary disease, unspecified; E11.42 Type 2 diabetes mellitus with diabetic polyneuropathy; E78.5 Hyperlipidemia, unspecified; I50.22 Chronic systolic (congestive) heart failure; I25.10 Atherosclerotic heart disease of native coronary artery without angina pectoris; K21.9 Gastro-esophageal reflux disease without esophagitis; Z99.2 Dependence on renal dialysis; Z79.4 Long term (current) use of insulin; Z79.899 Other long term (current) drug therapy; Z88.8 Allergy status to other drugs, medicaments and biological substances

== ENCOUNTER 2021-01-04 18:08 | Emergency (ER) | payer OTHER ==
[~2021-01-04] VITALS: Ht 157.4 cm; Wt 76.2 kg
[2021-01-04 18:15] VITALS: BP 96/54
[2021-01-04 19:51] LABS: BASO % 0.1 % (0.0-1.0); HEMATOCRIT 38.4 % (37.0-47.0); LYMPH # 1.2 10*3/uL (1.3-4.4); LYMPH % 12.7 % (27.0-41.0); MEAN CORPUSCULAR HGB 30.8 pg (27.0-31.0); MEAN PLATELET VOLUME 9.9 fl (9.6-12.3); MONO # 0.4 10*3/uL (0.1-1.0); MONO % 4.6 % (3.0-9.0); NEUT # 7.6 10*3/uL (2.3-7.9); NEUT % 82.2 % (47.0-73.0); PLATELET COUNT AUTOMATED 203 10*3/uL (130-400); RED CELL DISTRI WIDTH 12.6 % (0-14.5); WHITE BLOOD COUNT 9.2 10*3/uL (4.8-10.8)
[2021-01-04 20:10] LABS: ALBUMIN 3.7 gm/dl (3.1-4.5); ALKALINE PHOSPHATASE 112 U/L (45-117); BUN 27 mg/dl (7-24); CHLORIDE 103 mmol/L (98-107); CREATININE 6.72 mg/dL (0.55-1.02); LIPASE 137 U/L (73-393); POTASSIUM 3.9 mmol/L (3.5-5.1); SGOT/AST 13 IU/L (3-35); SGPT/ALT 17 U/L (12-78); SODIUM 137 mmol/L (136-145); TOTAL PROTEIN 7.9 gm/dL (6.4-8.2)
[2021-01-04 20:12] LABS: TROPONIN I < 0.015 ng/ml (<0.045)
[2021-01-04 21:37] LABS: BILIRUBIN Negative (Negative); BLOOD 3+ (Negative); CLARITY Turbid (Clear); COLOR Yellow (Yellow); GLUCOSE 2+ (Negative); KETONE Trace (Negative); LEUKO ESTERASE 2+ (Negative); NITRITE Negative (Negative); SPECIFIC GRAVITY 1.015 (1.001-1.030); UROBILINOGEN 0.2 E.U./dl (0.0-1.0)
[2021-01-04 21:51] LABS: BACTERIA 4+; EPITHELIAL CELLS 51-100; WBC 51-100 wbc/hpf (0-5)
[2021-01-05] MEDS ORDERED: CEPHALEXIN500 M1 PO (00:25)
== END 2021-01-05 00:37 | disposition home or self-care (01) ==
LOC: ED 18:08
PROVIDERS: Internal Medicine
DX: R10.12 Left upper quadrant pain (principal); R19.7 Diarrhea, unspecified; Z88.8 Allergy status to other drugs, medicaments and biological substances; Z88.2 Allergy status to sulfonamides; Z79.2 Long term (current) use of antibiotics; Z79.899 Other long term (current) drug therapy; Z79.4 Long term (current) use of insulin; Z79.82 Long term (current) use of aspirin; I25.10 Atherosclerotic heart disease of native coronary artery without angina pectoris; J44.9 Chronic obstructive pulmonary disease, unspecified; K21.9 Gastro-esophageal reflux disease without esophagitis; E78.5 Hyperlipidemia, unspecified; E66.01 Morbid (severe) obesity due to excess calories; E11.22 Type 2 diabetes mellitus with diabetic chronic kidney disease; I13.0 Hypertensive heart and chronic kidney disease with heart failure and stage 1 through stage 4 chronic kidney disease, or unspecified chronic kidney disease; N18.4 Chronic kidney disease, stage 4 (severe); I50.9 Heart failure, unspecified; E11.40 Type 2 diabetes mellitus with diabetic neuropathy, unspecified; Z98.61 Coronary angioplasty status; Z90.49 Acquired absence of other specified parts of digestive tract; Z98.890 Other specified postprocedural states; Z95.828 Presence of other vascular implants and grafts; Z87.891 Personal history of nicotine dependence; N39.0 Urinary tract infection, site not specified; M19.90 Unspecified osteoarthritis, unspecified site

== ENCOUNTER → 2021-05-04 | Outpatient (CLI) | payer OTHER | END | disposition home or self-care (01) | LOC: RESCLI 00:48 | PROVIDERS: ATTEND Internal Medicine Nephrology | DX: I13.2 Hypertensive heart and chronic kidney disease with heart failure and with stage 5 chronic kidney disease, or end stage renal disease (principal); I50.22 Chronic systolic (congestive) heart failure; E11.22 Type 2 diabetes mellitus with diabetic chronic kidney disease; N18.6 End stage renal disease; I25.10 Atherosclerotic heart disease of native coronary artery without angina pectoris; K21.9 Gastro-esophageal reflux disease without esophagitis; E78.5 Hyperlipidemia, unspecified; I42.9 Cardiomyopathy, unspecified; J44.9 Chronic obstructive pulmonary disease, unspecified; Z23 Encounter for immunization; Z12.11 Encounter for screening for malignant neoplasm of colon; Z12.2 Encounter for screening for malignant neoplasm of respiratory organs; Z12.31 Encounter for screening mammogram for malignant neoplasm of breast; Z79.82 Long term (current) use of aspirin; Z79.899 Other long term (current) drug therapy; Z88.2 Allergy status to sulfonamides; Z88.8 Allergy status to other drugs, medicaments and biological substances ==

== ENCOUNTER → 2021-08-31 | Outpatient (CLI) | payer OTHER ==
[2021-08-31 12:03] LABS: BASO % 0.1 % (0.0-1.0); LYMPH # 1.5 10*3/uL (1.3-4.4); LYMPH % 18.3 % (27.0-41.0); MEAN CELL VOLUME 96.4 fl (81.0-99.0); MEAN CORPUSCULAR HGB 31.1 pg (27.0-31.0); MEAN CORPUSCULAR HGB CONC 32.3 g/dl (33.0-37.0); MEAN PLATELET VOLUME 10.3 fl (9.6-12.3); MONO # 0.5 10*3/uL (0.1-1.0); MONO % 5.9 % (3.0-9.0); NEUT % 75.4 % (47.0-73.0); PLATELET COUNT AUTOMATED 193 10*3/uL (130-400); RED BLOOD COUNT 3.63 10*6/uL (4.10-5.10); RED CELL DISTRI WIDTH 13.4 % (0-14.5); WHITE BLOOD COUNT 7.9 10*3/uL (4.8-10.8)
[2021-08-31 12:05] LABS: BILIRUBIN Negative (Negative); BLOOD 2+ (Negative); CLARITY Turbid (Clear); COLOR Yellow (Yellow); GLUCOSE 2+ (Negative); KETONE Trace (Negative); LEUKO ESTERASE 1+ (Negative); NITRITE Negative (Negative); PH 7.5 (4.5-8.0); UROBILINOGEN 0.2 E.U./dl (0.0-1.0)
[2021-08-31 12:21] LABS: ALBUMIN 3.3 gm/dl (3.1-4.5); CREATININE 3.37 mg/dL (0.55-1.02); POTASSIUM 4.5 mmol/L (3.5-5.1); TOTAL PROTEIN 7.3 gm/dL (6.4-8.2)
[2021-08-31 12:30] LABS: BACTERIA 3+; EPITHELIAL CELLS 21-30; RBC TNTC rbc/hpf (0-2); WBC 21-30 wbc/hpf (0-5)
== END | disposition home or self-care (01) ==
LOC: RESCLI 01:06
PROVIDERS: Internal Medicine; ATTEND Student in an Organized Health Care Education/Training Program
DX: M79.2 Neuralgia and neuritis, unspecified (principal); I11.0 Hypertensive heart disease with heart failure; I50.22 Chronic systolic (congestive) heart failure; I25.10 Atherosclerotic heart disease of native coronary artery without angina pectoris; E11.69 Type 2 diabetes mellitus with other specified complication; K21.9 Gastro-esophageal reflux disease without esophagitis; E78.5 Hyperlipidemia, unspecified; J44.9 Chronic obstructive pulmonary disease, unspecified; N18.5 Chronic kidney disease, stage 5; R30.0 Dysuria; K04.7 Periapical abscess without sinus; Z79.899 Other long term (current) drug therapy; Z98.890 Other specified postprocedural states; Z88.6 Allergy status to analgesic agent

== ENCOUNTER 2021-09-22 18:14 | Emergency (ER) | payer OTHER ==
[~2021-09-22] VITALS: Wt 75.7 kg
[2021-09-22 18:19] VITALS: BP 187/68
[2021-09-22] MEDS ORDERED: CLINDAMYCIN HC300 MG PO (18:39)
== END 2021-09-22 19:31 | disposition home or self-care (01) ==
LOC: ED 18:14
DX: K08.89 Other specified disorders of teeth and supporting structures (principal); Z88.1 Allergy status to other antibiotic agents; Z88.6 Allergy status to analgesic agent; Z79.899 Other long term (current) drug therapy; Z79.82 Long term (current) use of aspirin; Z87.891 Personal history of nicotine dependence

== ENCOUNTER 2021-11-20 21:36 | Emergency (ER) | payer OTHER ==
[~2021-11-20] VITALS: Ht 154.9 cm; Wt 76.2 kg
[2021-11-20 21:39] VITALS: BP 172/80
[2021-11-20 22:28] LABS: BASO % 0.1 % (0.0-1.0); HEMATOCRIT 41.4 % (37.0-47.0); LYMPH # 1.3 10*3/uL (1.3-4.4); LYMPH % 13.2 % (27.0-41.0); MEAN CELL VOLUME 100.2 fl (81.0-99.0); MEAN CORPUSCULAR HGB 30.3 pg (27.0-31.0); MEAN CORPUSCULAR HGB CONC 30.2 g/dl (33.0-37.0); MEAN PLATELET VOLUME 10.9 fl (9.6-12.3); MONO # 0.4 10*3/uL (0.1-1.0); MONO % 3.4 % (3.0-9.0); NEUT # 8.4 10*3/uL (2.3-7.9); PLATELET COUNT AUTOMATED 155 10*3/uL (130-400); RED BLOOD COUNT 4.13 10*6/uL (4.10-5.10); RED CELL DISTRI WIDTH 13.2 % (0-14.5); WHITE BLOOD COUNT 10.2 10*3/uL (4.8-10.8)
[2021-11-20 22:41] LABS: BILIRUBIN Negative (Negative); BLOOD 1+ (Negative); CLARITY Clear (Clear); COLOR Yellow (Yellow); GLUCOSE 3+ (Negative); KETONE Negative (Negative); LEUKO ESTERASE Negative (Negative); NITRITE Negative (Negative); PH 8.5 (4.5-8.0); SPECIFIC GRAVITY 1.015 (1.001-1.030); UROBILINOGEN 0.2 E.U./dl (0.0-1.0)
[2021-11-20 22:47] LABS: ALBUMIN 3.4 gm/dl (3.1-4.5); CREATININE 7.35 mg/dL (0.55-1.02); POTASSIUM 5.1 mmol/L (3.5-5.1); TOTAL PROTEIN 7.3 gm/dL (6.4-8.2)
[2021-11-20 23:03] LABS: BACTERIA 1+
== END 2021-11-20 23:29 | disposition home or self-care (01) ==
LOC: ED 21:36
PROVIDERS: Nurse Practitioner Family
DX: Q61.3 Polycystic kidney, unspecified (principal); R31.9 Hematuria, unspecified; F17.200 Nicotine dependence, unspecified, uncomplicated; Z88.6 Allergy status to analgesic agent; Z88.1 Allergy status to other antibiotic agents; Z79.899 Other long term (current) drug therapy; Z79.82 Long term (current) use of aspirin

== ENCOUNTER → 2021-12-09 | Outpatient (CLI) | payer OTHER | END | disposition home or self-care (01) | LOC: RESCLI 00:43 | PROVIDERS: ATTEND Internal Medicine | DX: E11.69 Type 2 diabetes mellitus with other specified complication (principal); I13.2 Hypertensive heart and chronic kidney disease with heart failure and with stage 5 chronic kidney disease, or end stage renal disease; I50.22 Chronic systolic (congestive) heart failure; N18.6 End stage renal disease; I25.10 Atherosclerotic heart disease of native coronary artery without angina pectoris; K21.9 Gastro-esophageal reflux disease without esophagitis; E78.5 Hyperlipidemia, unspecified; J44.9 Chronic obstructive pulmonary disease, unspecified; M25.512 Pain in left shoulder; Z79.82 Long term (current) use of aspirin; Z79.899 Other long term (current) drug therapy; Z88.2 Allergy status to sulfonamides; Z88.8 Allergy status to other drugs, medicaments and biological substances; Z87.891 Personal history of nicotine dependence; Z90.49 Acquired absence of other specified parts of digestive tract; Z98.890 Other specified postprocedural states ==

== ENCOUNTER → 2022-01-05 | Outpatient (CLI) | payer OTHER ==
[2022-01-05 10:30] LABS: BASO % 0.1 % (0.0-1.0); HEMATOCRIT 37.6 % (37.0-47.0); LYMPH # 1.7 10*3/uL (1.3-4.4); MEAN CELL VOLUME 94.5 fl (81.0-99.0); MEAN CORPUSCULAR HGB 30.7 pg (27.0-31.0); MEAN CORPUSCULAR HGB CONC 32.4 g/dl (33.0-37.0); MEAN PLATELET VOLUME 10.3 fl (9.6-12.3); MONO # 0.5 10*3/uL (0.1-1.0); MONO % 5.4 % (3.0-9.0); NEUT % 73.1 % (47.0-73.0); PLATELET COUNT AUTOMATED 222 10*3/uL (130-400); RED BLOOD COUNT 3.98 10*6/uL (4.10-5.10); RED CELL DISTRI WIDTH 13.3 % (0-14.5); WHITE BLOOD COUNT 8.3 10*3/uL (4.8-10.8)
[2022-01-05 11:16] LABS: POTASSIUM 4.7 mmol/L (3.5-5.1)
[2022-01-05 11:19] LABS: CREATININE 5.43 mg/dL (0.55-1.02); TOTAL PROTEIN 7.5 gm/dL (6.4-8.2)
== END | disposition home or self-care (01) ==
LOC: MAMMO 12-15 10:30 → LAB 09:56 → MAMMO 10:30
PROVIDERS: Internal Medicine; ATTEND Student in an Organized Health Care Education/Training Program
DX: Z12.31 Encounter for screening mammogram for malignant neoplasm of breast (principal); E11.65 Type 2 diabetes mellitus with hyperglycemia; E78.5 Hyperlipidemia, unspecified; N18.6 End stage renal disease

== ENCOUNTER 2022-01-24 16:25 | Emergency (ER) | payer OTHER ==
[~2022-01-24 16:25] MED LIST changes: -AMLODIPINE BESY1 TAB PO
[2022-01-24 16:38] VITALS: BP 134/69
[2022-01-24] MEDS ORDERED: AMOXICILLIN250 MG PO (16:59)
== END 2022-01-24 17:15 | disposition home or self-care (01) ==
LOC: ED 16:25
DX: H65.92 Unspecified nonsuppurative otitis media, left ear (principal); Z88.1 Allergy status to other antibiotic agents; Z88.8 Allergy status to other drugs, medicaments and biological substances; Z79.899 Other long term (current) drug therapy; Z90.49 Acquired absence of other specified parts of digestive tract; Z98.890 Other specified postprocedural states; Z98.51 Tubal ligation status; Z87.891 Personal history of nicotine dependence

== ENCOUNTER 2022-01-27 22:37 | Inpatient (IN) | payer OTHER ==
[~2022-01-27] VITALS: Ht 154.9 cm; Wt 81.9 kg
[~2022-01-27 22:37] MED LIST changes: +AMOXICILLIN250 MG PO
[2022-01-27 22:45] VITALS: BP 143/59
[2022-01-27 23:27] LABS: BASO % 0.2 % (0.0-1.0); HEMATOCRIT 32.4 % (37.0-47.0); LYMPH # 0.9 10*3/uL (1.3-4.4); LYMPH % 18.4 % (27.0-41.0); MEAN CORPUSCULAR HGB 30.2 pg (27.0-31.0); MEAN CORPUSCULAR HGB CONC 31.8 g/dl (33.0-37.0); MEAN PLATELET VOLUME 10.6 fl (9.6-12.3); MONO # 0.3 10*3/uL (0.1-1.0); MONO % 7.1 % (3.0-9.0); NEUT # 3.5 10*3/uL (2.3-7.9); NEUT % 73.9 % (47.0-73.0); PLATELET COUNT AUTOMATED 150 10*3/uL (130-400); RED BLOOD COUNT 3.41 10*6/uL (4.10-5.10); RED CELL DISTRI WIDTH 13.4 % (0-14.5); WHITE BLOOD COUNT 4.8 10*3/uL (4.8-10.8)
[2022-01-27 23:43] LABS: CREATININE 4.09 mg/dL (0.55-1.02); POTASSIUM 4.2 mmol/L (3.5-5.1); TOTAL PROTEIN 6.8 gm/dL (6.4-8.2)
[2022-01-28 01:25] VITALS: BP 145/48
[2022-01-28 05:44] LABS: CREATININE 4.48 mg/dL (0.55-1.02); POTASSIUM 4.8 mmol/L (3.5-5.1)
[2022-01-28 05:46] LABS: TOTAL PROTEIN 7.1 gm/dL (6.4-8.2)
[2022-01-28 05:52] LABS: FREE T4 1.49 ng/dl (0.76-1.46); THYROID STIM HORMONE (HS) 1.39 uIU/ml (0.358-4.75)
[2022-01-28 06:19] LABS: HEMATOCRIT 32.3 % (37.0-47.0); MEAN CORPUSCULAR HGB 30.3 pg (27.0-31.0); MEAN CORPUSCULAR HGB CONC 31.9 g/dl (33.0-37.0); MEAN PLATELET VOLUME 11.3 fl (9.6-12.3); PLATELET COUNT AUTOMATED 155 10*3/uL (130-400); RED CELL DISTRI WIDTH 13.4 % (0-14.5); WHITE BLOOD COUNT 4.7 10*3/uL (4.8-10.8)
[2022-01-28 06:39] LABS: MANUAL DIFF REFLEX YES
[2022-01-28 06:57] LABS: ATYPICAL LYMPHS 1 % (0-0); OVALOCYTES FEW; PLATELET SUFFICIENCY NORMAL (NORMAL); TOTAL CELLS COUNTED 100 #CELLS
[2022-01-28 08:00] VITALS: BP 145/60
[2022-01-28] MEDS ORDERED: AURYXIA210 MG PO (10:00)
[2022-01-28] MEDS ORDERED: FUROSEMIDE40 MG PO (11:04)
[2022-01-28] MEDS ORDERED: REQUIP2 MG PO (11:16)
[2022-01-28] MEDS ORDERED: OMEPRAZOLE40 MG PO (11:18)
[2022-01-28] MEDS ORDERED: LISINOPRIL5 MG PO (11:20)
[2022-01-28] MEDS ORDERED: AMLODIPINE BESY10 MG PO (11:22)
[2022-01-28] MEDS ORDERED: ASMANEX HFA13 GM INH (11:26)
[2022-01-28] MEDS ORDERED: VITAMIN D31250 MC1 PO (11:32)
[2022-01-28 12:00] VITALS: BP 111/36
[2022-01-28 15:36] LABS: ABG BASE EXCESS 0.7 mmol/L (-2.0-2.0); ARTERIAL BLOOD GAS PH 7.436 (7.35-7.45); ARTERIAL BLOOD GAS PO2 62.3 (80-90)
[2022-01-28 16:00] VITALS: BP 120/43
[2022-01-28 20:00] VITALS: BP 115/58
[2022-01-28] MEDS ORDERED: LANTUS SOL100 UNIT/1 SC (22:17)
[2022-01-29] VITALS: BP 128/57
[2022-01-29 05:45] LABS: CREATININE 6.12 mg/dL (0.55-1.02)
[2022-01-29 06:09] LABS: BASO % 0.1 % (0.0-1.0); LYMPH # 0.7 10*3/uL (1.3-4.4); LYMPH % 9.3 % (27.0-41.0); MEAN CELL VOLUME 93.9 fl (81.0-99.0); MEAN CORPUSCULAR HGB 30.3 pg (27.0-31.0); MEAN CORPUSCULAR HGB CONC 32.3 g/dl (33.0-37.0); MEAN PLATELET VOLUME 11.1 fl (9.6-12.3); MONO # 0.2 10*3/uL (0.1-1.0); MONO % 2.3 % (3.0-9.0); NEUT # 6.9 10*3/uL (2.3-7.9); NEUT % 87.5 % (47.0-73.0); PLATELET COUNT AUTOMATED 148 10*3/uL (130-400); RED CELL DISTRI WIDTH 13.4 % (0-14.5); WHITE BLOOD COUNT 7.8 10*3/uL (4.8-10.8)
[2022-01-29 08:00] VITALS: BP 138/58
[2022-01-29 12:00] VITALS: BP 134/65
[2022-01-29 16:00] VITALS: BP 134/60
[2022-01-29 20:00] VITALS: BP 148/54
[2022-01-30] VITALS: BP 129/54
[2022-01-30 06:14] LABS: HEMATOCRIT 30.4 % (37.0-47.0); MEAN CELL VOLUME 94.4 fl (81.0-99.0); MEAN CORPUSCULAR HGB 30.7 pg (27.0-31.0); MEAN CORPUSCULAR HGB CONC 32.6 g/dl (33.0-37.0); MEAN PLATELET VOLUME 11.5 fl (9.6-12.3); PLATELET COUNT AUTOMATED 167 10*3/uL (130-400); RED BLOOD COUNT 3.22 10*6/uL (4.10-5.10); RED CELL DISTRI WIDTH 13.6 % (0-14.5); WHITE BLOOD COUNT 11.3 10*3/uL (4.8-10.8)
[2022-01-30 06:26] LABS: POTASSIUM 5.2 mmol/L (3.5-5.1)
[2022-01-30 06:31] LABS: CREATININE 7.23 mg/dL (0.55-1.02); MANUAL DIFF REFLEX YES
[2022-01-30 06:53] LABS: OVALOCYTES FEW; PLATELET SUFFICIENCY NORMAL (NORMAL); POLYCHROMASIA SLIGHT; TOTAL CELLS COUNTED 100 #CELLS
[2022-01-30 08:00] VITALS: BP 112/44
[2022-01-30] MEDS ORDERED: CARVEDILOL25 MG PO (10:46)
[2022-01-30] MEDS ORDERED: ZITHROMAX TRI-500 M1 PO (10:46)
[2022-01-30] MEDS ORDERED: PREDNISONE10 MG PO (10:46)
[2022-01-30 12:00] VITALS: BP 143/56
[2022-01-30 16:00] VITALS: BP 142/63
[2022-01-30 20:00] VITALS: BP 156/61
[2022-01-31] VITALS: BP 135/54
[2022-01-31 05:54] LABS: HEMATOCRIT 29.6 % (37.0-47.0); MEAN CELL VOLUME 93.7 fl (81.0-99.0); MEAN CORPUSCULAR HGB 30.4 pg (27.0-31.0); MEAN CORPUSCULAR HGB CONC 32.4 g/dl (33.0-37.0); MEAN PLATELET VOLUME 11.5 fl (9.6-12.3); PLATELET COUNT AUTOMATED 171 10*3/uL (130-400); RED BLOOD COUNT 3.16 10*6/uL (4.10-5.10); RED CELL DISTRI WIDTH 13.4 % (0-14.5); WHITE BLOOD COUNT 10.9 10*3/uL (4.8-10.8)
[2022-01-31 06:14] LABS: CREATININE 8.39 mg/dL (0.55-1.02)
[2022-01-31 06:15] LABS: MANUAL DIFF REFLEX YES
[2022-01-31 06:53] LABS: PLATELET SUFFICIENCY NORMAL (NORMAL); TOTAL CELLS COUNTED 100 #CELLS
[2022-01-31 08:00] VITALS: BP 157/65
[2022-01-31 12:37] VITALS: BP 144/54
== END 2022-01-31 16:30 | disposition home or self-care (01) | DRG 193 ==
LOC: ED 22:37 → 4E 01-28 00:44 → EDHOLD 01-28 00:44 → 4E 01-28 01:13
PROVIDERS: Internal Medicine; Internal Medicine Critical Care Medicine; Student in an Organized Health Care Education/Training Program; ADMIT Emergency Medicine; ATTEND Emergency Medicine
PROC: 5A09357 Assistance with Respiratory Ventilation, Less than 24 Consecutive Hours, Continuous Positive Airway Pressure (ICD-10-PCS; principal; 2022-01-29)
PROC: 5A1D70Z Performance of Urinary Filtration, Intermittent, Less than 6 Hours Per Day (ICD-10-PCS; 2022-01-29)
PROC: 5A1D70Z Performance of Urinary Filtration, Intermittent, Less than 6 Hours Per Day (ICD-10-PCS; 2022-01-31)
DX: J18.9 Pneumonia, unspecified organism (principal); J96.01 Acute respiratory failure with hypoxia; N18.6 End stage renal disease; N15.1 Renal and perinephric abscess; J44.1 Chronic obstructive pulmonary disease with (acute) exacerbation; F10.230 Alcohol dependence with withdrawal, uncomplicated; E87.1 Hypo-osmolality and hyponatremia; I48.21 Permanent atrial fibrillation; I12.0 Hypertensive chronic kidney disease with stage 5 chronic kidney disease or end stage renal disease; Z20.822 Contact with and (suspected) exposure to COVID-19; K21.9 Gastro-esophageal reflux disease without esophagitis; E78.5 Hyperlipidemia, unspecified; E66.9 Obesity, unspecified; D72.829 Elevated white blood cell count, unspecified; D64.9 Anemia, unspecified; E11.22 Type 2 diabetes mellitus with diabetic chronic kidney disease; E11.65 Type 2 diabetes mellitus with hyperglycemia; G47.33 Obstructive sleep apnea (adult) (pediatric); G25.81 Restless legs syndrome; I25.10 Atherosclerotic heart disease of native coronary artery without angina pectoris; E11.40 Type 2 diabetes mellitus with diabetic neuropathy, unspecified; Z88.8 Allergy status to other drugs, medicaments and biological substances; Z79.899 Other long term (current) drug therapy; Z79.4 Long term (current) use of insulin; Z82.3 Family history of stroke; Z79.82 Long term (current) use of aspirin; Z80.51 Family history of malignant neoplasm of kidney; Z82.49 Family history of ischemic heart disease and other diseases of the circulatory system; Z68.29 Body mass index [BMI] 29.0-29.9, adult; Z83.3 Family history of diabetes mellitus; Z98.891 History of uterine scar from previous surgery; Z90.49 Acquired absence of other specified parts of digestive tract; Z87.891 Personal history of nicotine dependence; Z95.1 Presence of aortocoronary bypass graft

== ENCOUNTER 2022-03-17 14:12 | Emergency (ER) | payer OTHER ==
[~2022-03-17] VITALS: Ht 154.9 cm; Wt 74.8 kg
[~2022-03-17 14:12] MED LIST changes: +AMLODIPINE BESY10 MG PO; +AURYXIA210 MG PO; +LANTUS SOL100 UNIT/1 SC; +OMEPRAZOLE40 MG PO; +REQUIP2 MG PO; +VITAMIN D31250 MC1 PO; +ZITHROMAX TRI-500 M1 PO
[2022-03-17 14:22] VITALS: BP 127/60
[2022-03-17] MEDS ORDERED: PREDNISONE10 MG PO (17:26)
[2022-03-17] MEDS ORDERED: DOXYCYCLINE HY100 M3 PO (17:26)
== END 2022-03-17 18:22 | disposition home or self-care (01) ==
LOC: ED 14:12
DX: J44.1 Chronic obstructive pulmonary disease with (acute) exacerbation (principal); H66.93 Otitis media, unspecified, bilateral; Z88.1 Allergy status to other antibiotic agents; Z88.6 Allergy status to analgesic agent; Z79.899 Other long term (current) drug therapy; Z79.82 Long term (current) use of aspirin; Z95.1 Presence of aortocoronary bypass graft; Z90.49 Acquired absence of other specified parts of digestive tract; Z98.890 Other specified postprocedural states; Z87.891 Personal history of nicotine dependence

== ENCOUNTER 2022-03-30 17:11 | Emergency (ER) | payer OTHER ==
[~2022-03-30] VITALS: Ht 154.9 cm; Wt 73.5 kg
[~2022-03-30 17:11] MED LIST changes: +DOXYCYCLINE HY100 M3 PO
[2022-03-30] MEDS ORDERED: PREDNISONE50 MG PO (20:51)
[2022-03-30] MEDS ORDERED: METHOCARBAMOL500 M1 PO (20:51)
== END 2022-03-30 21:05 | disposition home or self-care (01) ==
LOC: ED 17:11
DX: M25.511 Pain in right shoulder (principal); R07.89 Other chest pain; R20.0 Anesthesia of skin; R20.2 Paresthesia of skin; Z88.6 Allergy status to analgesic agent; Z88.2 Allergy status to sulfonamides; Z79.2 Long term (current) use of antibiotics; Z79.899 Other long term (current) drug therapy; Z79.4 Long term (current) use of insulin; Z79.82 Long term (current) use of aspirin; Z90.49 Acquired absence of other specified parts of digestive tract; Z98.890 Other specified postprocedural states; Z98.61 Coronary angioplasty status; Z95.828 Presence of other vascular implants and grafts; Z87.891 Personal history of nicotine dependence

== ENCOUNTER → 2022-05-09 | Outpatient (CLI) | payer OTHER ==
[~2022-05-09] MED LIST changes: +LASIX80 MG PO; +METHOCARBAMOL500 M1 PO; +PROTONIX TR40 M1 PO; +SYMB160 INH
== END | disposition home or self-care (01) ==
LOC: CARD 02:49
PROVIDERS: ATTEND Internal Medicine Cardiovascular Disease
DX: R06.02 Shortness of breath (principal); Z76.82 Awaiting organ transplant status

== ENCOUNTER 2022-05-22 14:15 | Inpatient (IN) | payer OTHER ==
[~2022-05-22] VITALS: Ht 154.9 cm; Wt 71.8 kg
[2022-05-22 14:25] VITALS: BP 115/52
[2022-05-22 14:54] LABS: BASO % 0.1 % (0.0-1.0); HEMATOCRIT 34.9 % (37.0-47.0); LYMPH # 1.3 10*3/uL (1.3-4.4); MEAN CELL VOLUME 90.4 fl (81.0-99.0); MEAN CORPUSCULAR HGB 29.8 pg (27.0-31.0); MEAN PLATELET VOLUME 10.5 fl (9.6-12.3); MONO # 0.6 10*3/uL (0.1-1.0); MONO % 4.5 % (3.0-9.0); NEUT # 10.8 10*3/uL (2.3-7.9); NEUT % 84.9 % (47.0-73.0); PLATELET COUNT AUTOMATED 192 10*3/uL (130-400); RED BLOOD COUNT 3.86 10*6/uL (4.10-5.10); RED CELL DISTRI WIDTH 13.3 % (0-14.5); WHITE BLOOD COUNT 12.8 10*3/uL (4.8-10.8)
[2022-05-22 15:08] LABS: ACT PARTIAL THROMBO TIME 27.2 SECONDS (20.0-32.1); INTERNATIONAL NORM RATIO 1.1 (2.0-3.5)
[2022-05-22 15:23] LABS: CREATININE 3.45 mg/dL (0.55-1.02); POTASSIUM 4.4 mmol/L (3.5-5.1); TOTAL PROTEIN 6.3 gm/dL (6.4-8.2)
[2022-05-22 16:06] VITALS: BP 120/60
[2022-05-22 17:15] VITALS: BP 140/60
[2022-05-22] MEDS ORDERED: ISOSORBIDE MONO10 MG PO (17:47)
[2022-05-22] MEDS ORDERED: thyroid med (17:49)
[2022-05-22 20:00] VITALS: BP 120/49
[2022-05-22 20:11] LABS: BILIRUBIN Negative (Negative); BLOOD 1+ (Negative); CLARITY Cloudy (Clear); COLOR Yellow (Yellow); GLUCOSE 2+ (Negative); KETONE Negative (Negative); LEUKO ESTERASE Trace (Negative); NITRITE Negative (Negative); SPECIFIC GRAVITY 1.015 (1.001-1.030); UROBILINOGEN 0.2 E.U./dl (0.0-1.0)
[2022-05-22 20:26] LABS: BACTERIA 1+; WBC 16-20 wbc/hpf (0-5)
[2022-05-23] VITALS: BP 122/47
[2022-05-23 06:20] LABS: HEMATOCRIT 39.6 % (37.0-47.0); MEAN CORPUSCULAR HGB 30.2 pg (27.0-31.0); MEAN CORPUSCULAR HGB CONC 32.1 g/dl (33.0-37.0); MEAN PLATELET VOLUME 11.3 fl (9.6-12.3); PLATELET COUNT AUTOMATED 210 10*3/uL (130-400); RED CELL DISTRI WIDTH 13.2 % (0-14.5); WHITE BLOOD COUNT 11.8 10*3/uL (4.8-10.8)
[2022-05-23 06:21] LABS: MEAN CELL VOLUME 94.3 fl (81.0-99.0)
[2022-05-23 06:22] LABS: MANUAL DIFF REFLEX YES
[2022-05-23 06:28] LABS: CREATININE 4.56 mg/dL (0.55-1.02); POTASSIUM 5.3 mmol/L (3.5-5.1)
[2022-05-23 06:35] LABS: FREE T4 1.39 ng/dl (0.76-1.46); THYROID STIM HORMONE (HS) 0.919 uIU/ml (0.358-4.75)
[2022-05-23 07:19] LABS: PLATELET SUFFICIENCY NORMAL (NORMAL); TOTAL CELLS COUNTED 100 #CELLS
[2022-05-23 07:20] LABS: BURR CELLS FEW
[2022-05-23 08:00] VITALS: BP 159/65
[2022-05-23] MEDS ORDERED: DOXYCYCLINE HY100 M3 PO (11:09)
[2022-05-23] MEDS ORDERED: PREDNISONE10 MG PO (11:09)
[2022-05-23 12:00] VITALS: BP 136/60
== END 2022-05-23 14:49 | disposition home or self-care (01) | DRG 190 ==
LOC: ED 14:15 → 4E 15:59 → EDHOLD 15:59 → 4E 16:42
PROVIDERS: Emergency Medicine; Internal Medicine; ADMIT Internal Medicine; ATTEND Internal Medicine
DX: J44.1 Chronic obstructive pulmonary disease with (acute) exacerbation (principal); N18.6 End stage renal disease; E44.0 Moderate protein-calorie malnutrition; I12.0 Hypertensive chronic kidney disease with stage 5 chronic kidney disease or end stage renal disease; I25.10 Atherosclerotic heart disease of native coronary artery without angina pectoris; E78.5 Hyperlipidemia, unspecified; K21.9 Gastro-esophageal reflux disease without esophagitis; G47.33 Obstructive sleep apnea (adult) (pediatric); G25.81 Restless legs syndrome; E11.40 Type 2 diabetes mellitus with diabetic neuropathy, unspecified; E11.22 Type 2 diabetes mellitus with diabetic chronic kidney disease; Z99.2 Dependence on renal dialysis; D64.9 Anemia, unspecified; E11.65 Type 2 diabetes mellitus with hyperglycemia; Z88.6 Allergy status to analgesic agent; Z88.2 Allergy status to sulfonamides; Z88.8 Allergy status to other drugs, medicaments and biological substances; Z79.4 Long term (current) use of insulin; Z95.1 Presence of aortocoronary bypass graft; Z90.49 Acquired absence of other specified parts of digestive tract; Z98.891 History of uterine scar from previous surgery; Z87.891 Personal history of nicotine dependence; Z82.49 Family history of ischemic heart disease and other diseases of the circulatory system; Z84.1 Family history of disorders of kidney and ureter; Z82.3 Family history of stroke; Z68.29 Body mass index [BMI] 29.0-29.9, adult

== ENCOUNTER → 2022-08-03 | Outpatient (CLI) | payer OTHER ==
[~2022-08-03] MED LIST changes: +ISOSORBIDE MONO10 MG PO; +thyroid med
== END | disposition home or self-care (01) ==
LOC: RESCLI 08-02 18:28
PROVIDERS: ATTEND Internal Medicine
DX: I13.2 Hypertensive heart and chronic kidney disease with heart failure and with stage 5 chronic kidney disease, or end stage renal disease (principal); E11.69 Type 2 diabetes mellitus with other specified complication; N18.6 End stage renal disease; I25.10 Atherosclerotic heart disease of native coronary artery without angina pectoris; K21.9 Gastro-esophageal reflux disease without esophagitis; E78.5 Hyperlipidemia, unspecified; J44.9 Chronic obstructive pulmonary disease, unspecified; I50.22 Chronic systolic (congestive) heart failure; R91.8 Other nonspecific abnormal finding of lung field; R31.9 Hematuria, unspecified; Z88.8 Allergy status to other drugs, medicaments and biological substances; Z87.891 Personal history of nicotine dependence; Z90.49 Acquired absence of other specified parts of digestive tract; Z98.890 Other specified postprocedural states; Z79.899 Other long term (current) drug therapy; Z79.82 Long term (current) use of aspirin

== ENCOUNTER → 2022-08-31 | Outpatient (CLI) | payer OTHER | END | disposition home or self-care (01) | LOC: RESCLI 02:21 | PROVIDERS: ATTEND Emergency Medicine | DX: I13.2 Hypertensive heart and chronic kidney disease with heart failure and with stage 5 chronic kidney disease, or end stage renal disease (principal); E11.22 Type 2 diabetes mellitus with diabetic chronic kidney disease; N18.6 End stage renal disease; I50.32 Chronic diastolic (congestive) heart failure; E11.69 Type 2 diabetes mellitus with other specified complication; K21.9 Gastro-esophageal reflux disease without esophagitis; J44.9 Chronic obstructive pulmonary disease, unspecified; I25.10 Atherosclerotic heart disease of native coronary artery without angina pectoris; E78.5 Hyperlipidemia, unspecified; E55.9 Vitamin D deficiency, unspecified; K44.9 Diaphragmatic hernia without obstruction or gangrene; E66.01 Morbid (severe) obesity due to excess calories; Z72.89 Other problems related to lifestyle; Z98.890 Other specified postprocedural states; Z95.1 Presence of aortocoronary bypass graft; Z90.49 Acquired absence of other specified parts of digestive tract; Z82.49 Family history of ischemic heart disease and other diseases of the circulatory system; Z88.2 Allergy status to sulfonamides; Z79.82 Long term (current) use of aspirin; Z79.899 Other long term (current) drug therapy ==

== ENCOUNTER 2022-10-10 15:21 | Emergency (ER) | payer OTHER ==
[~2022-10-10] VITALS: Ht 154.9 cm; Wt 71.7 kg
[~2022-10-10 15:21] MED LIST changes: -TAMIFLU 75MG CA75 MG PO
[2022-10-10 15:29] VITALS: BP 116/54
[2022-10-10 16:54] LABS: HEMATOCRIT 39.7 % (37.0-47.0); MEAN CELL VOLUME 94.1 fl (81.0-99.0); MEAN CORPUSCULAR HGB 30.1 pg (27.0-31.0); MEAN PLATELET VOLUME 10.6 fl (9.6-12.3); PLATELET COUNT AUTOMATED 198 10*3/uL (130-400); RED BLOOD COUNT 4.22 10*6/uL (4.10-5.10); RED CELL DISTRI WIDTH 13.6 % (0-14.5); WHITE BLOOD COUNT 9.3 10*3/uL (4.8-10.8)
[2022-10-10 17:00] LABS: MANUAL DIFF REFLEX YES
[2022-10-10 17:15] LABS: CREATININE 6.42 mg/dL (0.55-1.02); POTASSIUM 4.8 mmol/L (3.4-5.1)
[2022-10-10 17:16] LABS: TOTAL PROTEIN 6.9 gm/dL (6.0-8.0)
[2022-10-10 17:20] LABS: PLATELET SUFFICIENCY NORMAL (NORMAL); TOTAL CELLS COUNTED 100 #CELLS; TOXIC GRANULATION SLIGHT
[2022-10-10 18:18] LABS: BILIRUBIN Negative (Negative); BLOOD 2+ (Negative); CLARITY Clear (Clear); COLOR Yellow (Yellow); GLUCOSE Trace (Negative); KETONE Negative (Negative); LEUKO ESTERASE Negative (Negative); NITRITE Negative (Negative); SPECIFIC GRAVITY 1.015 (1.001-1.030); UROBILINOGEN 0.2 E.U./dl (0.0-1.0)
[2022-10-10 18:36] LABS: WBC 0-2 wbc/hpf (0-5)
[2022-10-10] MEDS ORDERED: TAMIFLU 75MG CA75 MG PO ×2 (18:42)
[2022-10-12] MEDS ORDERED: LEVOFLOXACIN500 MG PO (14:20)
== END 2022-10-10 19:25 | disposition home or self-care (01) ==
LOC: ED 15:21
PROVIDERS: Student in an Organized Health Care Education/Training Program
DX: J10.1 Influenza due to other identified influenza virus with other respiratory manifestations (principal); Z20.822 Contact with and (suspected) exposure to COVID-19; Z88.1 Allergy status to other antibiotic agents; Z88.6 Allergy status to analgesic agent; Z79.899 Other long term (current) drug therapy; Z79.82 Long term (current) use of aspirin; Z90.49 Acquired absence of other specified parts of digestive tract; Z98.890 Other specified postprocedural states; Z87.891 Personal history of nicotine dependence

== ENCOUNTER → 2022-10-10 | Outpatient (CLI) | payer OTHER ==
[~2022-10-10] MED LIST changes: +TAMIFLU 75MG CA75 MG PO
== END | disposition home or self-care (01) ==
LOC: RESCLI 15:08
PROVIDERS: ATTEND Family Medicine
DX: I95.9 Hypotension, unspecified (principal); E11.9 Type 2 diabetes mellitus without complications; I10 Essential (primary) hypertension; J44.9 Chronic obstructive pulmonary disease, unspecified; R09.02 Hypoxemia; I25.5 Ischemic cardiomyopathy; E78.5 Hyperlipidemia, unspecified; E55.9 Vitamin D deficiency, unspecified; E66.2 Morbid (severe) obesity with alveolar hypoventilation; Z90.49 Acquired absence of other specified parts of digestive tract; Z95.1 Presence of aortocoronary bypass graft; Z98.890 Other specified postprocedural states; Z88.6 Allergy status to analgesic agent; Z88.8 Allergy status to other drugs, medicaments and biological substances; Z79.899 Other long term (current) drug therapy

== ENCOUNTER → 2022-12-04 | Outpatient (CLI) | payer OTHER ==
[~2022-12-04] MED LIST changes: +TAMIFLU 75MG CA75 MG PO
[2022-12-04 12:28] LABS: BILIRUBIN Negative (Negative); BLOOD 2+ (Negative); CLARITY Cloudy (Clear); COLOR Yellow (Yellow); GLUCOSE 1+ (Negative); KETONE Negative (Negative); LEUKO ESTERASE 1+ (Negative); NITRITE Negative (Negative); UROBILINOGEN 0.2 E.U./dl (0.0-1.0)
[2022-12-04 12:30] LABS: PH 8.5 (4.5-8.0)
[2022-12-04 13:07] LABS: BACTERIA 3+
== END | disposition home or self-care (01) ==
LOC: LAB 11:54
PROVIDERS: ATTEND Internal Medicine
DX: E11.69 Type 2 diabetes mellitus with other specified complication (principal); R31.9 Hematuria, unspecified

== ENCOUNTER → 2022-12-14 | Outpatient (CLI) | payer OTHER | END | disposition home or self-care (01) | LOC: RESCLI 01:29 | PROVIDERS: ATTEND Internal Medicine | DX: E11.69 Type 2 diabetes mellitus with other specified complication (principal); E11.22 Type 2 diabetes mellitus with diabetic chronic kidney disease; N18.6 End stage renal disease; J44.9 Chronic obstructive pulmonary disease, unspecified; E78.5 Hyperlipidemia, unspecified; I42.9 Cardiomyopathy, unspecified; Z98.890 Other specified postprocedural states; Z90.49 Acquired absence of other specified parts of digestive tract; Z99.2 Dependence on renal dialysis; Z95.5 Presence of coronary angioplasty implant and graft; Z82.49 Family history of ischemic heart disease and other diseases of the circulatory system; Z88.2 Allergy status to sulfonamides; Z88.8 Allergy status to other drugs, medicaments and biological substances; Z79.899 Other long term (current) drug therapy ==

== ENCOUNTER → 2023-03-15 | Outpatient (CLI) | payer OTHER | END | disposition home or self-care (01) | LOC: RESCLI 00:15 → LAB 00:15 → RESCLI 07:59 | PROVIDERS: ATTEND Family Medicine | DX: Z12.11 Encounter for screening for malignant neoplasm of colon (principal); R91.1 Solitary pulmonary nodule; Z12.39 Encounter for other screening for malignant neoplasm of breast; J44.9 Chronic obstructive pulmonary disease, unspecified; I13.2 Hypertensive heart and chronic kidney disease with heart failure and with stage 5 chronic kidney disease, or end stage renal disease; E11.22 Type 2 diabetes mellitus with diabetic chronic kidney disease; N18.6 End stage renal disease; I50.22 Chronic systolic (congestive) heart failure; E78.5 Hyperlipidemia, unspecified; Z88.2 Allergy status to sulfonamides; Z98.890 Other specified postprocedural states; Z79.82 Long term (current) use of aspirin; Z79.899 Other long term (current) drug therapy ==

== ENCOUNTER → 2023-03-21 | Outpatient (CLI) | payer OTHER ==
[~2023-03-21] MED LIST changes: +LEVOFLOXACIN750 M2 PO
== END | disposition home or self-care (01) ==
LOC: CT 15:00
PROVIDERS: ATTEND Internal Medicine
DX: J18.1 Lobar pneumonia, unspecified organism (principal); I25.10 Atherosclerotic heart disease of native coronary artery without angina pectoris; R91.1 Solitary pulmonary nodule

== ENCOUNTER → 2023-03-22 | Outpatient (CLI) | payer OTHER ==
[~2023-03-22] MED LIST changes: -LEVOFLOXACIN750 M2 PO
== END | disposition home or self-care (01) ==
LOC: MAMMO 01:10
PROVIDERS: ATTEND Internal Medicine
DX: Z12.31 Encounter for screening mammogram for malignant neoplasm of breast (principal)

== ENCOUNTER 2023-05-04 00:43 | Emergency (ER) | payer OTHER ==
[~2023-05-04] VITALS: Ht 154.9 cm; Wt 59.0 kg
[~2023-05-04 00:43] MED LIST changes: +LEVOFLOXACIN750 M2 PO
[2023-05-04 01:04] VITALS: BP 190/74
[2023-05-04] MEDS ORDERED: AMOXICILLIN500 M2 PO (01:45)
== END 2023-05-04 01:51 | disposition home or self-care (01) ==
LOC: ED 00:43
DX: K02.9 Dental caries, unspecified (principal); I25.10 Atherosclerotic heart disease of native coronary artery without angina pectoris; J44.9 Chronic obstructive pulmonary disease, unspecified; K21.9 Gastro-esophageal reflux disease without esophagitis; E78.5 Hyperlipidemia, unspecified; E11.22 Type 2 diabetes mellitus with diabetic chronic kidney disease; I12.9 Hypertensive chronic kidney disease with stage 1 through stage 4 chronic kidney disease, or unspecified chronic kidney disease; N18.9 Chronic kidney disease, unspecified; E11.40 Type 2 diabetes mellitus with diabetic neuropathy, unspecified; Z88.8 Allergy status to other drugs, medicaments and biological substances; Z88.2 Allergy status to sulfonamides; Z79.899 Other long term (current) drug therapy; Z79.2 Long term (current) use of antibiotics; Z79.4 Long term (current) use of insulin; Z79.82 Long term (current) use of aspirin; Z90.49 Acquired absence of other specified parts of digestive tract; Z87.891 Personal history of nicotine dependence

== ENCOUNTER → 2023-07-12 | Outpatient (CLI) | payer OTHER | END | disposition home or self-care (01) | LOC: RESCLI 07-11 01:16 | PROVIDERS: ATTEND Internal Medicine | DX: J44.9 Chronic obstructive pulmonary disease, unspecified (principal); E11.65 Type 2 diabetes mellitus with hyperglycemia; E78.5 Hyperlipidemia, unspecified; I13.2 Hypertensive heart and chronic kidney disease with heart failure and with stage 5 chronic kidney disease, or end stage renal disease; E11.22 Type 2 diabetes mellitus with diabetic chronic kidney disease; N18.6 End stage renal disease; I50.22 Chronic systolic (congestive) heart failure; I25.10 Atherosclerotic heart disease of native coronary artery without angina pectoris; K21.9 Gastro-esophageal reflux disease without esophagitis; J30.2 Other seasonal allergic rhinitis; E11.42 Type 2 diabetes mellitus with diabetic polyneuropathy; E66.01 Morbid (severe) obesity due to excess calories; E55.9 Vitamin D deficiency, unspecified; D50.9 Iron deficiency anemia, unspecified; M19.90 Unspecified osteoarthritis, unspecified site; Z87.891 Personal history of nicotine dependence; Z98.890 Other specified postprocedural states; Z82.49 Family history of ischemic heart disease and other diseases of the circulatory system ==

== ENCOUNTER 2023-08-29 14:26 | Emergency (ER) | payer OTHER ==
[~2023-08-29] VITALS: Ht 154.9 cm; Wt 71.7 kg
[2023-08-29 14:46] VITALS: BP 170/81
[2023-08-29] MEDS ORDERED: CLEOCIN HCL150 MG PO (17:24)
== END 2023-08-29 17:56 | disposition home or self-care (01) ==
LOC: ED 14:26
DX: K08.89 Other specified disorders of teeth and supporting structures (principal); E11.9 Type 2 diabetes mellitus without complications; K21.9 Gastro-esophageal reflux disease without esophagitis; J45.909 Unspecified asthma, uncomplicated; M19.90 Unspecified osteoarthritis, unspecified site; I50.9 Heart failure, unspecified; I11.0 Hypertensive heart disease with heart failure; I25.2 Old myocardial infarction; Z88.8 Allergy status to other drugs, medicaments and biological substances; Z88.2 Allergy status to sulfonamides; Z88.6 Allergy status to analgesic agent; Z90.49 Acquired absence of other specified parts of digestive tract; Z98.890 Other specified postprocedural states; Z95.5 Presence of coronary angioplasty implant and graft; Z87.891 Personal history of nicotine dependence

== ENCOUNTER → 2023-12-04 | Outpatient (CLI) | payer OTHER ==
[2023-12-04 10:29] LABS: BASO % 0.4 % (0.0-1.0); EOS # 0.5 10*3/uL (0.0-0.4); EOS % 5.7 % (1.0-4.0); HEMATOCRIT 42.9 % (37.0-47.0); LYMPH # 1.5 10*3/uL (1.3-4.4); LYMPH % 18.1 % (27.0-41.0); MEAN CELL VOLUME 93.7 fl (81.0-99.0); MEAN CORPUSCULAR HGB 30.1 pg (27.0-31.0); MEAN CORPUSCULAR HGB CONC 32.2 g/dl (33.0-37.0); MEAN PLATELET VOLUME 10.4 fl (9.6-12.3); MONO # 0.4 10*3/uL (0.1-1.0); MONO % 4.8 % (3.0-9.0); NEUT # 5.8 10*3/uL (2.3-7.9); NEUT % 70.8 % (47.0-73.0); PLATELET COUNT AUTOMATED 225 10*3/uL (130-400); RED BLOOD COUNT 4.58 10*6/uL (4.10-5.10); RED CELL DISTRI WIDTH 13.7 % (0-14.5); WHITE BLOOD COUNT 8.2 10*3/uL (4.8-10.8)
[2023-12-04 10:51] LABS: POTASSIUM 5.3 mmol/L (3.4-5.1); TOTAL PROTEIN 8.2 gm/dL (6.0-8.0); URINE CREATININE RANDOM 30.18 mg/dL
[2023-12-04 11:35] LABS: VITAMIN D, 25-HYDROXY 38.9 ng/mL (30-100)
== END | disposition home or self-care (01) ==
LOC: RESCLI 01:28
PROVIDERS: Student in an Organized Health Care Education/Training Program; ATTEND Internal Medicine
DX: I11.0 Hypertensive heart disease with heart failure (principal); I50.22 Chronic systolic (congestive) heart failure; I25.10 Atherosclerotic heart disease of native coronary artery without angina pectoris; E78.5 Hyperlipidemia, unspecified; M19.90 Unspecified osteoarthritis, unspecified site; E11.65 Type 2 diabetes mellitus with hyperglycemia; J44.9 Chronic obstructive pulmonary disease, unspecified; E55.9 Vitamin D deficiency, unspecified; K21.9 Gastro-esophageal reflux disease without esophagitis; Z79.899 Other long term (current) drug therapy

== ENCOUNTER 2024-02-25 18:51 | Emergency (ER) | payer OTHER ==
[~2024-02-25] VITALS: Ht 154.9 cm; Wt 67.1 kg
[2024-02-25 19:01] VITALS: BP 168/68
[2024-02-25] MEDS ORDERED: Acetaminophen/Hydrocodone 5 MG/325 MG TABLET PO ONE (19:10)
[2024-02-25] MEDS ORDERED: Amoxicillin/Clavulanate Pota 875 MG TAB PO ONE (19:10)
[2024-02-25] MEDS ORDERED: AMOX-CLAV 875-1 EACH PO (19:13)
== END 2024-02-25 19:28 | disposition home or self-care (01) ==
LOC: ED 18:51
DX: K04.7 Periapical abscess without sinus (principal); M54.41 Lumbago with sciatica, right side; Z99.2 Dependence on renal dialysis; Z88.6 Allergy status to analgesic agent; Z88.2 Allergy status to sulfonamides; Z79.2 Long term (current) use of antibiotics; Z79.899 Other long term (current) drug therapy; Z79.4 Long term (current) use of insulin; Z79.82 Long term (current) use of aspirin; Z90.49 Acquired absence of other specified parts of digestive tract; Z98.890 Other specified postprocedural states

== ENCOUNTER → 2024-03-03 | Outpatient (CLI) | payer OTHER ==
[~2024-03-03] MED LIST changes: +AMOX-CLAV 875-1 EACH PO
== END | disposition home or self-care (01) ==
LOC: RESCLI 02:29
PROVIDERS: ATTEND Student in an Organized Health Care Education/Training Program
DX: Z12.11 Encounter for screening for malignant neoplasm of colon (principal); Z12.39 Encounter for other screening for malignant neoplasm of breast; E11.65 Type 2 diabetes mellitus with hyperglycemia; G47.30 Sleep apnea, unspecified; J44.9 Chronic obstructive pulmonary disease, unspecified; E78.5 Hyperlipidemia, unspecified; I11.0 Hypertensive heart disease with heart failure; I50.22 Chronic systolic (congestive) heart failure; I25.10 Atherosclerotic heart disease of native coronary artery without angina pectoris; K21.9 Gastro-esophageal reflux disease without esophagitis; Z98.890 Other specified postprocedural states; J30.2 Other seasonal allergic rhinitis; E11.42 Type 2 diabetes mellitus with diabetic polyneuropathy; M19.90 Unspecified osteoarthritis, unspecified site; K02.9 Dental caries, unspecified; Z99.2 Dependence on renal dialysis; Z79.899 Other long term (current) drug therapy

== ENCOUNTER → 2024-03-13 | Outpatient (CLI) | payer OTHER | END | disposition home or self-care (01) | LOC: CT 01:11 | PROVIDERS: ATTEND Internal Medicine Critical Care Medicine | DX: J43.9 Emphysema, unspecified (principal); I25.10 Atherosclerotic heart disease of native coronary artery without angina pectoris; I31.1 Chronic constrictive pericarditis; Z87.891 Personal history of nicotine dependence ==

== ENCOUNTER → 2024-04-21 | Day surgery (SDC) | payer OTHER ==
[~2024-04-21] VITALS: Ht 154.9 cm; Wt 67.1 kg
[~2024-04-21] MED LIST changes: +Midazolam Hydrochloride 2 MG/2 ML VIAL IV ONE; +PROPOFOL 200 MG/20 ML VIAL IV ONE; +SODIUM CHLORIDE 0.9% 1,000 ML IV ONE
[2024-04-21 14:25] VITALS: BP 99/63
[2024-04-21 17:02] VITALS: BP 139/56
[2024-04-21 17:17] VITALS: BP 142/62
[2024-04-21 18:15] VITALS: BP 138/45
== END | disposition home or self-care (01) ==
LOC: SDC 04-14 08:45
PROVIDERS: ATTEND Surgery
DX: Z12.11 Encounter for screening for malignant neoplasm of colon (principal); D12.3 Benign neoplasm of transverse colon; K63.5 Polyp of colon; K64.8 Other hemorrhoids; I13.2 Hypertensive heart and chronic kidney disease with heart failure and with stage 5 chronic kidney disease, or end stage renal disease; E11.22 Type 2 diabetes mellitus with diabetic chronic kidney disease; N18.6 End stage renal disease; I50.9 Heart failure, unspecified; J44.9 Chronic obstructive pulmonary disease, unspecified; I25.10 Atherosclerotic heart disease of native coronary artery without angina pectoris; E78.5 Hyperlipidemia, unspecified; K21.9 Gastro-esophageal reflux disease without esophagitis; E66.01 Morbid (severe) obesity due to excess calories; Z95.5 Presence of coronary angioplasty implant and graft; Z99.2 Dependence on renal dialysis; Z98.891 History of uterine scar from previous surgery; Z90.49 Acquired absence of other specified parts of digestive tract; Z98.41 Cataract extraction status, right eye; Z87.891 Personal history of nicotine dependence; Z98.42 Cataract extraction status, left eye; Z98.890 Other specified postprocedural states; Z79.82 Long term (current) use of aspirin; Z79.4 Long term (current) use of insulin; Z79.899 Other long term (current) drug therapy; Z88.8 Allergy status to other drugs, medicaments and biological substances; Z82.3 Family history of stroke; Z82.49 Family history of ischemic heart disease and other diseases of the circulatory system

== ENCOUNTER 2024-10-04 20:22 | Emergency (ER) | payer OTHER ==
[~2024-10-04] VITALS: Ht 154.9 cm; Wt 73.0 kg
[~2024-10-04 20:22] MED LIST changes: -Midazolam Hydrochloride 2 MG/2 ML VIAL IV ONE; -PROPOFOL 200 MG/20 ML VIAL IV ONE; -SODIUM CHLORIDE 0.9% 1,000 ML IV ONE
[2024-10-04 20:25] VITALS: BP 166/59
[2024-10-04] MEDS ORDERED: Acetaminophen/Oxycodone 5 MG/325 MG TABLET PO ONE (22:35)
== END 2024-10-04 23:08 | disposition home or self-care (01) ==
LOC: ED 20:22
DX: R10.9 Unspecified abdominal pain (principal); R11.2 Nausea with vomiting, unspecified; M54.50 Low back pain, unspecified; I25.10 Atherosclerotic heart disease of native coronary artery without angina pectoris; Z88.6 Allergy status to analgesic agent; Z88.2 Allergy status to sulfonamides; Z79.82 Long term (current) use of aspirin; Z79.899 Other long term (current) drug therapy; Z79.4 Long term (current) use of insulin; Z90.49 Acquired absence of other specified parts of digestive tract; Z95.5 Presence of coronary angioplasty implant and graft; Z98.890 Other specified postprocedural states; Z87.891 Personal history of nicotine dependence; W10.8XXA Fall (on) (from) other stairs and steps, initial encounter; Y93.89 Activity, other specified; Y92.89 Other specified places as the place of occurrence of the external cause; Y99.8 Other external cause status

== ENCOUNTER → 2024-11-17 | Outpatient (CLI) | payer MEDICARE, OTHER ==
[2024-11-17 16:27] LABS: BASO % 0.6 % (0.0-1.0); EOS # 0.4 10*3/uL (0.0-0.4); EOS % 5.1 % (1.0-4.0); MEAN CORPUSCULAR HGB 32.3 pg (27.0-31.0); MEAN CORPUSCULAR HGB CONC 33.6 g/dl (33.0-37.0); MEAN PLATELET VOLUME 10.5 fl (9.6-12.3); MONO # 0.3 10*3/uL (0.1-1.0); MONO % 4.3 % (3.0-9.0); NEUT # 5.3 10*3/uL (2.3-7.9); NEUT % 73.1 % (47.0-73.0); PLATELET COUNT AUTOMATED 215 10*3/uL (130-400); RED BLOOD COUNT 3.75 10*6/uL (4.10-5.10); RED CELL DISTRI WIDTH 12.8 % (0-14.5); WHITE BLOOD COUNT 7.3 10*3/uL (4.8-10.8)
[2024-11-17 17:00] LABS: ALKALINE PHOSPHATASE 156 U/L (46-116); BUN 12 mg/dl (9-23); CHLORIDE 99 mmol/L (98-107); CHOLESTEROL 161 mg/dL (<200); FREE T4 1.22 ng/dl (0.89-1.76); LDL CHOLESTEROL 71 mg/dL (9-159); TOTAL PROTEIN 7.4 gm/dL (6.0-8.0); TRIGLYCERIDES 231 mg/dl (<150)
[2024-11-17 17:01] LABS: SGPT/ALT < 7 U/L (5-49); VITAMIN D, 25-HYDROXY 27.5 ng/mL (30-100)
== END | disposition home or self-care (01) ==
LOC: RESCLI 03:13 → LAB 03:13 → RESCLI 03:33
PROVIDERS: Student in an Organized Health Care Education/Training Program; ATTEND Internal Medicine
DX: E11.65 Type 2 diabetes mellitus with hyperglycemia (principal); E55.9 Vitamin D deficiency, unspecified; Z68.28 Body mass index [BMI] 28.0-28.9, adult; E11.42 Type 2 diabetes mellitus with diabetic polyneuropathy; D50.9 Iron deficiency anemia, unspecified

== ENCOUNTER 2025-02-03 22:33 | Emergency (ER) | payer OTHER, MEDICARE ==
[2025-02-03 22:51] VITALS: BP 140/51
[2025-02-03] MEDS ORDERED: Albuterol Sulf/Ipratropium 3 ML VIAL NEB ONE (23:55)
[2025-02-04 00:15] LABS: BASO % 0.3 % (0.0-1.0); EOS # 0.2 10*3/uL (0.0-0.4); HEMATOCRIT 32.3 % (37.0-47.0); MEAN CELL VOLUME 95.3 fl (81.0-99.0); MEAN CORPUSCULAR HGB CONC 32.5 g/dl (33.0-37.0); MONO # 0.6 10*3/uL (0.1-1.0); MONO % 7.2 % (3.0-9.0); NEUT # 6.5 10*3/uL (2.3-7.9); NEUT % 81.9 % (47.0-73.0); PLATELET COUNT AUTOMATED 182 10*3/uL (130-400); RED BLOOD COUNT 3.39 10*6/uL (4.10-5.10); RED CELL DISTRI WIDTH 13.1 % (0-14.5)
[2025-02-04 00:40] LABS: POTASSIUM 4.5 mmol/L (3.4-5.1)
[2025-02-04] MEDS ORDERED: ZITHROMAX250 MG PO (02:47)
[2025-02-04] MEDS ORDERED: AZITHROMYCIN 250 MG TAB PO ONE (02:50)
== END 2025-02-04 03:10 | disposition home or self-care (01) ==
LOC: ED 22:33
PROVIDERS: Emergency Medicine
DX: J40 Bronchitis, not specified as acute or chronic (principal); I12.9 Hypertensive chronic kidney disease with stage 1 through stage 4 chronic kidney disease, or unspecified chronic kidney disease; E11.22 Type 2 diabetes mellitus with diabetic chronic kidney disease; N18.6 End stage renal disease; K21.9 Gastro-esophageal reflux disease without esophagitis; E78.5 Hyperlipidemia, unspecified; Z99.2 Dependence on renal dialysis; Z20.822 Contact with and (suspected) exposure to COVID-19; Z79.82 Long term (current) use of aspirin; Z79.899 Other long term (current) drug therapy; Z90.49 Acquired absence of other specified parts of digestive tract; Z98.890 Other specified postprocedural states

== ENCOUNTER → 2025-07-02 | Outpatient (CLI) | payer OTHER ==
[2025-07-02 15:52] LABS: BUN 17.0 mg/dl (9-23)
== END | disposition home or self-care (01) ==
LOC: LAB 01:08 → CARD 01:08
PROVIDERS: Student in an Organized Health Care Education/Training Program; ATTEND Internal Medicine Cardiovascular Disease
DX: I42.9 Cardiomyopathy, unspecified (principal); I25.10 Atherosclerotic heart disease of native coronary artery without angina pectoris; E11.65 Type 2 diabetes mellitus with hyperglycemia

== ENCOUNTER → 2025-08-05 | Outpatient (CLI) | payer OTHER | END | disposition home or self-care (01) | LOC: MAMMO 07-23 14:00 | PROVIDERS: ATTEND Internal Medicine | DX: Z12.31 Encounter for screening mammogram for malignant neoplasm of breast (principal) ==